=== PATIENT | female | born 1950 | race Hispanic/Latino ===

== ENCOUNTER → 2017-09-08 | Outpatient (CLI) | payer MEDICARE ==
[~2017-09-08] MED LIST: ACIPHEX PO; ASPIRIN81 MG PO; ATENOLOL50 MG PO; CALTRATE 600 W1 EACH; CENTRUM SILVER1 EAC3; CITALOPRAM HBR20 MG PO; CLONAZEPAM1 MG PO; DOXEPIN HCL50 MG PO; FISH OIL300 MG PO; FUROSEMIDE40 MG PO; GLIPIZIDE PO; NEXIUM40 MG; POTASSIUM CHLO10 ME1 PO; REGLAN PO; SEROQUEL25 MG PO; SIMVASTATIN40 MG PO; SUCRALFATE1 GM PO; SYNTHROID PO; VITAMIN B-121000 MCG PO; VITAMIN D31000 UNIT; WATER PILL; Z DOXEPIN HCL PO; Z.0.ACIPHEX20 MG PO; Z.0.CITALOPRAM HBR40 PO; Z.0.CLONAZEPAM2 MG PO; Z.0.JANUMET XR 50-1; Z.0.SIMVASTATIN80 MG PO; [UNRECOGNIZED DRUG - OTHER] PO; [UNRECOGNIZED DRUG - OTHER] PO; atenolol
--- NOTE | 2017-09-08 12:42 | Diagnostic Imaging Report ---
PROCEDURE:US RETROPERITONEAL ( KIDNEY ). COMPARISON:None. INDICATIONS:CKD TECHNIQUE: Martini scale and color Doppler ultrasound kidneys FINDINGS: Right: 11.5 x 4.7 x 2.4 cm. Cortical thickness 1.6 cm. Left: 10.4 x 5 x 4.1 cm. Cortical thickness 1.4 cm. Both kidneys demonstrate normal parenchymal echogenicity. No conspicuous cyst, stone or mass. Ureteral jets are not identified, but there is no evidence of obstruction. Survey views of the urinary bladder are normal. Prevoid bladder volume: 114 mL Post void bladder volume: Zero CONCLUSION: Normal renal ultrasound. Dictated by: Kranthi Cm M.D. on 09/08/2017 at 12:45 Electronically approved by: Kranthi Cm M.D. on 09/08/2017 at 12:45
--- NOTE | 2017-09-08 12:44 | Diagnostic Imaging Report ---
PROCEDURE:URINARY BLADDER ULTRASOUND COMPARISON:None. INDICATIONS:CKD TECHNIQUE:Martini scale color Doppler Findings: Survey views of the urinary bladder are unremarkable. Ureteral jets are not identified, but there is no secondary evidence of ureteral obstruction. Prevoid bladder volume: 114 mL Post void volume: Zero CONCLUSION: Normal urinary bladder ultrasound. Dictated by: Kranthi Cm M.D. on 09/08/2017 at 12:47 Electronically approved by: Kranthi Cm M.D. on 09/08/2017 at 12:47
== END ==
LOC: US 10:22
PROVIDERS: ATTEND Internal Medicine Nephrology
DX: N18.3 Chronic kidney disease, stage 3 (moderate) (principal); E11.9 Type 2 diabetes mellitus without complications
CPT/HCPCS: 76770; 76857

== ENCOUNTER → 2018-04-22 | Outpatient (CLI) | payer MEDICARE | LOC: CARD 15:09 | PROVIDERS: ATTEND Internal Medicine | DX: I70.90 Unspecified atherosclerosis (principal) | CPT/HCPCS: 93880 ==

== ENCOUNTER → 2018-05-01 | Outpatient (CLI) | payer MEDICARE ==
[~2018-05-01] MED LIST changes: +FENTANYL CITRATE/PF 100MCG/2 ML INJ ONE
--- NOTE | 2018-05-01 12:25 | Diagnostic Imaging Report ---
EXAMINATION: CHEST 2 VIEWS INDICATION: Chest pain. Bone loss. ^ANNUAL PHYSICAL EXAM / BONE LOSS COMPARISON: None FINDINGS: TUBES and LINES: None. LUNGS: Lungs are well inflated. Lungs are clear. There is no evidence of pneumonia or pulmonary edema. PLEURA: No pleural effusion or pneumothorax. HEART AND MEDIASTINUM: The cardiomediastinal silhouette is unremarkable. BONES AND SOFT TISSUES: No acute osseous lesion. Soft tissues are unremarkable. UPPER ABDOMEN: No free air under the diaphragm. IMPRESSION: No acute thoracic abnormality. Signed by: Dr. Edgardo Abernathy M.D. on 05/01/2018 12:22 PM
--- NOTE | 2018-05-01 17:25 | Diagnostic Imaging Report ---
Exam: Bone mineral density study. History: ANNUAL PHYSICAL EXAM / BONE LOSS Comparison: None similar prior comparison available Discussion: Evaluation of the left hip and lumbar spine was performed. The study is technically adequate. The patient's fracture risk is compared to an age-matched control. The patient denies prior surgery/fracture of the spine, hips or forearm. Left hip femoral neck bone mineral density: 0.6 g/cm2, T-score is -2.4, Z-score is -0.7. Left hip total bone mineral density: 0.8 g/cm2, T-score is -1, Z-score is 0.4. Lumbar spine total bone mineral density: 0.8 g/cm2, T-score is -1.9, Z-score is 0.1. Impression: 1. Bone mineralization by WHO Classification is low bone mass/osteopenia, the fracture risk is increased. 2. The FRAX 10-year probability of major osteoporotic fracture is 11% and hip fracture is 2.1%. These probabilities assume the patient is untreated. Signed by: Dr. Nick Watkins D.O., M.M.M. on 05/01/2018 5:22 PM
== END ==
LOC: MAMMO 10:38
PROVIDERS: ATTEND Internal Medicine
DX: Z12.31 Encounter for screening mammogram for malignant neoplasm of breast (principal); Z13.820 Encounter for screening for osteoporosis; Z00.00 Encounter for general adult medical examination without abnormal findings; M85.80 Other specified disorders of bone density and structure, unspecified site
CPT/HCPCS: 71046; 77067; 77080

== ENCOUNTER → 2019-01-22 | Day surgery (SDC) | payer MEDICARE ==
[2019-01-20 17:06] LABS: BASOPHILS % 0.3 % (0.0-1.0); EOSINOPHILS # (AUTO) 0.1 (0.0-0.4); EOSINOPHILS % 1.4 % (0.0-6.0); HEMATOCRIT 40.8 % (34.2-44.1); HEMOGLOBIN 12.8 g/dL (12.0-16.0); LYMPHOCYTES # (AUTO) 2.1 (1.0-3.2); LYMPHOCYTES % 23.3 % (18.0-39.1); MEAN CORPUSCULAR HEMOGLOBIN 28.7 pg (28-32); MEAN CORPUSCULAR HGB CONC 31.4 g/dL (31-35); MEAN CORPUSCULAR VOLUME 91.5 fL (81-99); MONOCYTES # (AUTO) 0.6 (0.2-0.8); MONOCYTES % 7.1 % (4.4-11.3); NEUTROPHILS # (AUTO) 6.1 (2.1-6.9); NEUTROPHILS % 67.6 % (38.7-80.0); PLATELET COUNT 231 x10e3/uL (140-360); RED BLOOD COUNT 4.46 x10e6/uL (3.6-5.1); RED CELL DISTRIBUTION WIDTH 15.9 % (11.7-14.4)
[~2019-01-22] MED LIST changes: +ACIPHEX20 MG PO; +CREON DR 36,001 EACH PO; -FENTANYL CITRATE/PF 100MCG/2 ML INJ ONE; +GABAPENTIN100 MG PO; +JANUMET 50-1,01 EACH PO; +LIDOCAINE HCL 2% LOCAL INJ 5 ML SDV VIAL INJ ONE; +MIDAZOLAM HCL 2 MG/2 ML VIAL ONE; +NAPROXEN250 MG PO; +NORCO 5-325 TA1 EACH PO; +OMEPRAZOLE40 MG PO; +PROAIR HFA INH8.5 GM INH; +PROPOFOL IV EMULSION 10 MG/ML 50 ML VIAL ONE; +ULTRAM50 MG PO; +ZAFIRLUKAST10 MG PO
--- OUTSIDE RECORDS SUMMARY | 2019-01-22 06:24 | XMS REPORT ---
Author [facility] Address Unknown Phone Unavailable Care Team Providers Care Clinical Trial Data Manager Name Role Phone EDITH GRIMALDO Unavailable Unavailable EMMA JOAQUIN Unavailable Unavailable Payers Payer Name Policy Type Policy Number Effective Date Expiration Date Problems This patient has no known problems. Allergies, Adverse Reactions, Alerts Allergy Name Allergy Type Status Severity Reaction(s) Onset Date Inactive Date Treating Clinician Comments codeine DA Active [place] 2016-08-01 00:00:00 Medications This patient has no known medications. Encounters Start Date/Time End Date/Time Encounter Type Admission Type Attending Clinicians Care Facility Care Department Encounter ID 2018-08-28 11:43:00 2018-08-28 11:43:00 Outpatient [facility] CAR [id number] Results Test Description Test Time Test Comments Text Results Atomic Results Result Comments BONE DXA DUAL ENERGY 2018-05-01 17:20:00 [place] [address] Patient Name: LAURA KNIGHT MR #: [id number] : 1950 Age/Sex: 67/F Req #: [id number] Adm Physician: Ordered by: EDITH GRIMALDO MD Report #: [id number] Location: [facility] Room/Bed: Procedure: [id number] DX/BONE DXA DUAL ENERGY Exam Date: Exam Time: REPORT STATUS: Signed Exam: Bone mineral density study. History: ANNUAL PHYSICAL E XAM / BONE LOSS Comparison: None similar prior comparison available Discussion: Evaluation of the left hip and lumbar spine was performed. The study is technically adequate. The patient's fracture risk is compared to an age-matched control. The patient denies prior surgery/fracture of the spine, hips or forearm. Left hip femoral neck bone mineral density: 0.6 g/cm2, T-score is -2.4, Z-score is -0.7. Left hip total bone mineral density: 0.8 g/cm2, T-score is -1, Z-score is 0.4. Lumbar spine total bone mineral density: 0.8 g/cm2, T-score is -1.9, Z-score is 0.1. Impression: 1. Bone mineralization by WHO Classification is low bone mass/osteopenia, the fracture risk is increased. 2. The FRAX 10-year probability of major osteoporotic fracture is 11% and hip fracture is 2.1%. These probabilities assume the patient is untreated. Signed by: Dr. Nick Waktins D.O., M.M.M. on 05/01/2018 5:22 PM Dictated By: NICK WATKINS DO 21 Transcribed By: CHERRY on 05/01/181721 COPY TO: EDITH GRIMALDO MD MAMMOGRAPHY DIGITAL SCR BILAT 2018-05-01 15:26:00 [place] [address] Patient Name: LAURA KNIGHT MR #: [id number] : 1950 Age/Sex: 67/F Req #: [id number] Adm Physician: Ordered by: EDITH GRIMALDO MD Report #: [id number] Location: [facility] Room/Bed: Procedure: [id number] MG/MAMMOGRAPHY DIGITAL SCR BILAT Exam Date: 05/01/18 Exam Time: 1100 REPORT STATUS: Signed #[id number] - [id number] #BILATERAL DIGITAL SCREENING MAMMOGRAM WITH CAD: 05/01/2018 CLINICAL: Routine screening. Comparison is made to exams dated: 03/07/2015 mammogram and 02/11/2013 mammogram - [facility]. Current study contains 7 films. There are scattered fibroglandular elements in both breasts. Current study was also evaluated with a Computer Aided Detection (CAD) system. There are benign calcifications in both breasts. There also are benign intramammary nodes in both breasts. No significant masses, calcifications, or other findings are seen in either breast. There has been no significant interval change. IMPRESSION: BENIGN There is no mammographic evidence of malignancy. A 1 year screening mammogram is recommended. The patient will be notified by letter of the results. Bird peace/ghulam:05/20/2018 08:25:04 Geotechnical Engineer: Kirsite KNOX(R)(M), [facility] letter sent: Compared to Prior B9 Mammogram BI-RADS: 2 Benign Dictated By: BIRD HOWE DO 4 Transcribed By: GHULAM on 05/20/18824 COPY TO: EDITH GRIMALDO MD CHEST 2 VIEWS 2018-05-01 12:21:00 [place] [address] Patient Name: LAURA KNIGHT MR #: [id number] : 1950 Age/Sex: 67/F Req #: [id number] Adm Physician: Ordered by: EDITH GRIMALDO MD Report #: [id number] Location: MAMMO Room/Bed: Procedure: [id number] DX/CHEST 2 VIEWS Exam Date: Exam Time: REPORT STATUS: Signed EXAMINATION: CHEST 2 VIEWS INDICATION: Chest pain. Bone loss. ANNUAL PHYSICAL EXAM / BONE LOSS COMPARISON: None FINDINGS: TUBES and LINES: None. LUNGS: Lungs are well inflated. Lungs are clear. There is no evidence of pneumonia or pulmonary edema. PLEURA: No pleural effusion or pneumothorax. HEART AND MEDIASTINUM: The cardiomediastinal silhouette is unremarkable. BONES AND SOFT TISSUES: No acute osseous lesion. Soft tissues are unremarkable. UPPER ABDOMEN: No free air under the diaphragm. IMPRESSION: No acute thoracic abnormality. Signed by: Dr. Yady Abernathy M.D. on 05/01/2018 12:22 PM Dictated By: YADY ABERNATHY MD, MD 122 Transcribed By: CHERRY on 05/01/18 1222 COPY TO: EDITH GRIMALDO MD RENAL RETROPERITONEAL COMP [place] [address] Patient Name: LAURA KNIGHT MR #: [id number] : 1950 Age/Sex: 66/F Req #: [id number] Adm Physician: Ordered by: EMMA JOAQUIN MD Report #: [id number] Location: Room/Bed: Procedure: US/US RENAL RETROPERITONEAL COMP Exam Date: 09/08/17 Exam Time: 1130 REPORT STATUS: Signed PROCEDURE: US RETROPERITONEAL ( KIDNEY ). COMPARISON: None. INDICATIONS: CKD TECHNIQUE: Martini scale and color Doppler ultrasound kidneys FINDINGS: Right: 11.5 x 4.7 x 2.4 cm. Cortical thickness 1.6 cm. Left: 10.4 x 5 x 4.1 cm. Cortical thickness 1.4 cm. Both kidneys demonstrate normal parenchymal echogenicity. No conspicuous cyst, stone or mass. Ureteral jets are not identified, but there is no evidence of obstruction. Survey views of the urinary bladder are normal. Prevoid bladder volume: 114 mL Post void bladder volume: Zero CONCLUSION: Normal renal ultrasound. Dictated by: Hnany Cm M.D. on 09/08/2017 at 12:45 Electronically approved by: Hanny Cm M.D. on 09/08/2017 at 12:45 Dictated By: HANNY CM MD 1245 Transcribed By: CASSIE on 09/08/17 1245 COPY TO: EMMA JOAQUIN MD PELVIC (NON OB) BARR OR F/U [place] [address] Patient Name: LAURA KNIGHT MR #: [id number] : 1950 Age/Sex: 66/F Req #: [id number] Adm Physician: Ordered by: EMMA JOAQUIN MD Report #: [id number] Location: Room/Bed: Procedure: US/US PELVIC (NON OB) BARR OR F/U Exam Date: 09/08/17 Exam Time: 1130 REPORT STATUS: Signed PROCEDURE: URINARY BLADDER ULTRASOUND COMPARISON: None. INDICATIONS: CKD TECHNIQUE: Martini scale color Doppler Findings: Survey views of the urinary bladder are unremarkable. Ureteral jets are not identified, but there is no secondary evidence of ureteral obstruction. Prevoid bladder volume: 114 mL Post void volume: Zero CONCLUSION: Normal urinary bladder ultrasound. Dictated by: Hanny Cm M.D. on 09/08/2017 at 12:47 Electronically approved by: Hanny Cm M.D. on 09/08/2017 at 12:47 Dictated By: HANNY CM MD 1247 Transcribed By: CASSIE on 09/08/17 1247 COPY TO: EMMA JOAQUIN MD
--- OUTSIDE RECORDS SUMMARY | 2019-01-22 06:25 | XMS REPORT | Summary of Care ---
Author Author Audrey Arndt M.A. Unknown Address Unknown Phone Unavailable Care Team Providers Care Soaking Pit Operator Name Role Phone TIM MERLOS M.D. Unavailable Unavailable RE JARAMILLO, EDITH BURGER Unavailable Unavailable Steve JARAMILLO, Killian Unavailable Unavailable Unavailable Unavailable Functional Status Name Dates Details Functional status health issues are not documented Status: Name Dates Details Cognitive status health issues are not documented Status: Problems Name Dates Details Morbid obesity (278.01, E66.01) Status: Active Diabetes mellitus (250.00, E11.9) Status: Active Edema of lower extremity (782.3, R60.0) Status: Active Chest pain (786.50, R07.9) Status: Active Essential (primary) hypertension (401.9, I10) Status: Active Hyperlipidemia (272.4, E78.5) Status: Active Palpitations (785.1, R00.2) Status: Active SOB (shortness of breath) (786.05, R06.02) Status: Active Abnormal findings on diagnostic imaging of heart and coronary circulation (794.39, R93.1) Status: Active Chest tightness or pressure (786.59, R07.89) Status: Active Medications Name Dates Details Simvastatin 40 MG Oral Tablet TAKE 1 TABLET DAILY. Active glipiZIDE ER 5 MG Oral Tablet Extended Release 24 Hour TAKE 2 TABLET DAILY. * Refills: 0 Active Citalopram Hydrobromide 40 MG Oral Tablet TAKE 1 TABLET DAILY. * Refills: 0 Active Calcium TABS TAKE 1 TABLET DAILY. * Refills: 0 Active B-12 CAPS qd * Refills: 0 Active clonazePAM 2 MG Oral Tablet TAKE 1 TABLET EVERY 12 HOURS NEEDED. * Refills: 0 * Start : 21-Dec-2013 Active SEROquel 200 MG Oral Tablet TAKE 2 TABLETS AT BEDTIME. * Refills: 0 * Start : 21-Dec-2013 Active Potassium Chloride ER 10 MEQ Oral Capsule Extended Release TAKE 1 CAPSULE DAILY * Refills: 0 * Start : 06-Jul-2015 Active Doxepin HCl - 50 MG Oral Capsule TAKE 1 CAPSULE 3 TIMES DAILY. * Refills: 0 * Start : 06-Jul-2015 Active Trelegy Ellipta 100-62.5-25 MCG/INH Inhalation Aerosol Powder Breath Activated * Refills: 0 Active Furosemide 80 MG Oral Tablet * Refills: 0 Active Zafirlukast 20 MG Oral Tablet * Refills: 0 Active Biotin TABS * Refills: 0 Active Centrum Silver TABS * Refills: 0 Active Atenolol 50 MG Oral Tablet * Refills: 0 Active Allergies and Adverse Reactions Name Dates Details Codeine Derivatives (Allergy) Status: Active Past Medical History Name Dates Details History of Diabetes mellitus (250.00, E11.9) Status: Resolved History of esophageal reflux (V12.79, Z87.19) Status: Resolved History of essential hypertension (V12.59, Z86.79) Status: Resolved History of Gastroparesis (536.3, K31.84) Status: Resolved History of hyperlipidemia (V12.29, Z86.39) Status: Resolved History of hypothyroidism (V12.29, Z86.39) Status: Resolved Procedures Procedure Dates Details History of Cholecystectomy Completed History of Knee Arthroscopy (Therapeutic) Completed History of Cervical Vertebral Fusion Completed History of Lumbar Vertebral Fusion Completed History of Ostectomy Calcaneus For Spur Completed History of Appendectomy Completed History of Hysterectomy Completed Immunization Name Dates Details Immunizations not documented Family History Name Dates Details Family history of Stroke Syndrome (V17.1) Status: Active Name Dates Details Family history of Cancer Status: Active Social History Name Dates Details - Status: Name Dates Details Former smoker Vital Signs Date Test Result Details No Known Vitals to report Results Date Description Value Details Results not documented Plan of Care Name Dates Details Planned Observations Planned Goals not documented Planned Encounters Appointment; TIM MERLOS M.D. On: 03-Nov-2018 8:20 Appointment; KILLIAN MCCULLOUGH M.D. On: 08-Mar-2019 10:30 Interventions Provided Plan* 1. HTN * 2. CKD stage 2 (per patient) * - seen by renal w/ High dose diuretic * 3. COPD * - on multiple inhalers * - on atenolol * 4. Chest pain * - typical * - nornal EKG no ST T changes * - > 250 lbs * - Pet scan (morbid obesity, chest pain, unable to tmt): positive for diffuse severe CAD * 5. Follow up w/ elective corangio to eval CAD, options (PCI, CABG and medical Rx) discussed, patient agrees.Stable sx. No angina. Emergency Contacts provided. Discussion/Summary* Reviewed and discussed clinical cardiac findings and medications. * EKG reviewed and discussed. Instructions Name Dates Details Instructions not documented Encounters Appointment; SURESH EGAN M.D. Encounter Diagnosis: Problem not documented On: 14-Jul-2018 13:30 Appointment; OLGA DOUGLAS Encounter Diagnosis: Problem not documented On: 21-Jul-2018 13:00 Appointment; SURESH EGAN M.D. Encounter Diagnosis: Problem not documented On: 13-Aug-2018 11:10 Appointment; SURESH EGAN M.D. Encounter Diagnosis: Problem not documented On: 02-Sep-2018 10:40 Appointment; TIM MERLOS M.D. Encounter Diagnosis: Problem not documented On: 03-Nov-2018 8:20
[2019-01-22 08:00] VITALS: BP 118/80
== END | disposition home or self-care (01) ==
LOC: OR 06:15
PROVIDERS: ATTEND Internal Medicine Gastroenterology
DX: K29.70 Gastritis, unspecified, without bleeding (principal); K31.89 Other diseases of stomach and duodenum; K28.9 Gastrojejunal ulcer, unspecified as acute or chronic, without hemorrhage or perforation; K21.9 Gastro-esophageal reflux disease without esophagitis; K85.90 Acute pancreatitis without necrosis or infection, unspecified; K44.9 Diaphragmatic hernia without obstruction or gangrene; J44.9 Chronic obstructive pulmonary disease, unspecified; G47.33 Obstructive sleep apnea (adult) (pediatric); R00.2 Palpitations; E03.9 Hypothyroidism, unspecified; E11.9 Type 2 diabetes mellitus without complications; Z71.3 Dietary counseling and surveillance; I10 Essential (primary) hypertension; E66.01 Morbid (severe) obesity due to excess calories; F41.9 Anxiety disorder, unspecified; F32.9 Major depressive disorder, single episode, unspecified; Z88.6 Allergy status to analgesic agent; Z91.048 Other nonmedicinal substance allergy status; Z01.810 Encounter for preprocedural cardiovascular examination; Z01.812 Encounter for preprocedural laboratory examination; Z68.43 Body mass index [BMI] 50.0-59.9, adult; Z79.84 Long term (current) use of oral hypoglycemic drugs
CPT/HCPCS: 36415 ×2; 43235; 82948; 85025; 93005; J2001; J2250; J2704

== ENCOUNTER 2019-08-23 12:33 | Observation (INO) | payer MEDICARE, OTHER ==
[~2019-08-23] VITALS: Ht 162.6 cm; Wt 86.6 kg
[~2019-08-23 12:33] MED LIST changes: -LIDOCAINE HCL 2% LOCAL INJ 5 ML SDV VIAL INJ ONE; -MIDAZOLAM HCL 2 MG/2 ML VIAL ONE; -PROPOFOL IV EMULSION 10 MG/ML 50 ML VIAL ONE
--- OUTSIDE RECORDS SUMMARY | 2019-08-23 12:36 | XMS REPORT ---
Author Author [facility] t Organization [facility] Address [address] [place] [address] Phone Unavailable Care Team Providers Care Summer Nanny Name Role Phone JORGE RINCON M.D. Attphys Unavailable JANETH GARCIA D.O. Attphys Unavailable TIM MERLOS M.D. Attphys Unavailable SURESH EGAN M.D. Attphys Unavailable SE, ECHO Attphys Unavailable RE, EDITH Attphys Unavailable MERSZEI EMMA Attphys Unavailable Payers Payer Name Policy Type Policy Number Effective Date Expiration Date S ource Problems Condition Name Condition Details Condition Category Status Onset Date Resolution Date Last Treatment Date Treating Clinician Comments Source History of depression History of depression Problem Resolved [facility] History of Arthritis of knee History of Arthritis of knee Problem Re solved [facility] History of asthma History of asthma Problem Resolved [facility] History of Bipolar 1 disorder History of Bipolar 1 disorder Problem Resolved [facility] History of essential hypertension History of essential hypertens ion Problem Resolved [facility] Type II diabetes mellitus Type II diabetes mellitus Problem Active [facility] History of gastroesophageal reflux (GERD) History of g astroesophageal reflux (GERD) Problem Resolved [facility] History of Gastroparesis History of Gastroparesis Problem Resolved [facility] History of hypothyroidism History of hypothyroidism Problem Resolved [facility] History of Migraines History of Migraines Problem Resolved [facility] History of Obesity hypoventilation syndrome History of Obesity hypoventilation syndrome Problem Resolved [facility] Morbid obesity Morbid obesity Problem Active [facility] Edema of lower extremity Edema of lower extremity Problem Active [facility] Chest pain Chest pain [facility] Essential (primary) hypertension Essential (primary) hypertensio n Problem Active [facility] Hyperlipidemia Hyperlipidemia Problem Active [facility] Palpitations Palpitations Problem Active [facility] SOB (shortness of breath) SOB (shortness of breath) Problem Active [facility] Abnormal findings on diagnostic imaging of heart and c oronary circulation Abnormal findings on diagnostic imaging of heart and coronary circulation Problem Active [facility] Chest tightness or pressure Chest tightness or pressure Problem Active [facility] 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 [facility] Other protein-calorie malnutrition Other protein-calorie malnutr ition Problem Active [facility] GERD (gastroesophageal reflux disease) GERD (gastroesophagea l reflux disease) Problem Active [facility] COPD (chronic obstructive pulmonary disease) COPD (chr onic obstructive pulmonary disease) Problem Active [facility] Bipolar disorder, mixed Bipolar disorder, mixed Problem Active [facility] Allergies, Adverse Reactions, Alerts Allergy Name Allergy Type Status Severity Reaction(s) Onset Date Inacti ve Date Treating Clinician Comments Source codeine DA Active [place] 2019-02-03 00:00:00 [facility] codeine DA Active IN 2016-08-01 00:00:00 [facility] Codeine Derivatives Allergy to drug (finding) Active [facility] codeine Allergy to drug (finding) Active [facility] Family History Family Member Diagnosis Comments Start Date Stop Date Source Father Family history of Stroke Syndrome [facility] Brother Family history of Cancer [facility] Social History Smoking Status Start Date Stop Date Source Ex-smoker (finding) [place] [facility] Medications Ordered Medication Name Filled Medication Name Start Date Stop Da te Current Medication? Ordering Clinician Indication Dosage Frequency Signature (SIG) Comments Components Source Potassium Chloride ER 10 MEQ Oral Capsule Extended Rel ease Potassium Chloride ER 10 MEQ Oral Capsule Extended Release 2015-07-06 00:00:00 Yes 1 QD TAKE 1 CAPSULE DAILY [facility] Doxepin HCl - 50 MG Oral Capsule Doxepin HCl - 50 MG Oral Ca psule 2015-07-06 00:00:00 Yes Q0.3333D TAKE 1 CAPSULE 3 TIMES VANDANA Rosa [facility] clonazePAM 2 MG Oral Tablet clonazePAM 2 MG Oral Tablet 2013-12-21 00:00:00 Yes TAKE 1 TABLET EVERY 12 HOURS NEEDED. [facility] SEROquel 200 MG Oral Tablet SEROquel 200 MG Oral Tablet 2013-12-21 00:00:00 Yes TAKE 2 TABLETS AT BEDTIME. [facility] Simvastatin 40 MG Oral Tablet Simvastatin 40 MG Oral Tablet Yes 1 QD TAKE 1 TABLET DAILY. [facility] glipiZIDE ER 5 MG Oral Tablet Extended Release 24 Hour glipiZIDE ER 5 MG Oral Tablet Extended Release 24 Hour Yes TAKE 2 TABLET DAILY. [facility] Citalopram Hydrobromide 40 MG Oral Tablet Citalopram H ydrobromide 40 MG Oral Tablet Yes 1 QD TAKE 1 TABLET DAILY. [facility] Calcium TABS Calcium TABS Yes 1 QD TAKE 1 TABLET DAILY. [facility] B-12 CAPS B-12 CAPS Yes qd [facility] Trelegy Ellipta 100-62.5-25 MCG/INH Inhalation Aerosol Powder Breath Activated Trelegy Ellipta 100-62.5-25 MCG/INH Inhalation Aerosol Powder Breath Activated Yes [facility] Furosemide 80 MG Oral Tablet Furosemide 80 MG Oral Tablet Yes [facility] Zafirlukast 20 MG Oral Tablet Zafirlukast 20 MG Oral Tablet Ye s [facility] Biotin TABS Biotin TABS Yes [facility] Centrum Silver TABS Centrum Silver TABS Yes [facility] Atenolol 50 MG Oral Tablet Atenolol 50 MG Oral Tablet Yes [facility] Atenolol 50 MG Oral Tablet Atenolol 50 MG Oral Tablet Yes [facility] B-12 TABS B-12 TABS Yes [facility] Biotin TABS Biotin TABS Yes [facility] Calcium TABS Calcium TABS Yes [facility] Centrum Silver TABS Centrum Silver TABS Yes [facility] Citalopram Hydrobromide 40 MG Oral Tablet Citalopram H ydrobromide 40 MG Oral Tablet Yes [facility] clonazePAM 2 MG Oral Tablet clonazePAM 2 MG Oral Tablet Yes [facility] Doxepin HCl - 50 MG Oral Capsule Doxepin HCl - 50 MG Oral Capsule Yes [facility] Furosemide 80 MG Oral Tablet Furosemide 80 MG Oral Tablet Yes [facility] glipiZIDE ER 5 MG Oral Tablet Extended Release 24 Hour glipiZIDE ER 5 MG Oral Tablet Extended Release 24 Hour Yes [facility] Potassium Chloride ER 10 MEQ Oral Tablet Extended Rele ase Potassium Chloride ER 10 MEQ Oral Tablet Extended Release Yes [facility] SEROquel 200 MG Oral Tablet SEROquel 200 MG Oral Tablet Yes [facility] Simvastatin 40 MG Oral Tablet Simvastatin 40 MG Oral Tablet Ye s [facility] Trelegy Ellipta 100-62.5-25 MCG/INH Inhalation Aerosol Powder Breath Activated Trelegy Ellipta 100-62.5-25 MCG/INH Inhalation Aerosol Powder Breath Activated Yes [facility] Zafirlukast 20 MG Oral Tablet Zafirlukast 20 MG Oral Tablet Ye s [facility] Creon [id number] UNIT Oral Capsule Delayed Release Particle s Creon [id number] UNIT Oral Capsule Delayed Release Particles Yes [facility] Pancrelipase TABS Pancrelipase TABS Yes [facility] Meloxicam TABS Meloxicam TABS Yes [facility] RABEprazole Sodium 20 MG Oral Tablet Delayed Release R ABEprazole Sodium 20 MG Oral Tablet Delayed Release Yes [facility] glipiZIDE 5 MG Oral Tablet glipiZIDE 5 MG Oral Tablet Yes [facility] methylPREDNISolone 4 MG Oral Tablet methylPREDNISolone 4 MG Oral Tabl et Yes [facility] Omeprazole 40 MG Oral Capsule Delayed Release Omeprazo le 40 MG Oral Capsule Delayed Release Yes [facility] hydroCHLOROthiazide 12.5 MG Oral Tablet hydroCHLOROthiazide 12.5 MG Oral Tablet Yes [facility] Iron TABS Iron TABS Yes [facility]ive [facility] Atenolol 50 MG Oral Tablet Atenolol 50 MG Oral Tablet Yes [facility] Simvastatin TABS Simvastatin TABS Yes [facility] Zafirlukast 20 MG Oral Tablet Zafirlukast 20 MG Oral Tablet Ye s [facility] clonazePAM 2 MG Oral Tablet clonazePAM 2 MG Oral Tablet Yes [facility] SEROquel TABS SEROquel TABS Yes [facility] Vital Signs Vital Name Observation Time Observation Value Comments Source BP Systolic 2019-03-01 13:36:00 148 mm[Hg] Location: RUE; Positi on: Sitting [facility] BP Diastolic 2019-03-01 13:36:00 79 mm[Hg] Location: RUE; Positi on: Sitting [facility] Height 2019-03-01 13:36:00 63 [in_us] [facility] Weight 2019-03-01 13:36:00 289.8 [lb_av] [facility] Body Mass Index Calculated 2019-03-01 13:36:00 51.34 kg/m2 [facility] Temperature 2019-03-01 13:36:00 98.2 [degF] Method: Oral [facility] Heart Rate 2019-03-01 13:36:00 75 /min Quality: Normal Unive [facility] BP Systolic 2019-02-15 13:53:00 108 mm[Hg] Location: LUE; Positi on: Sitting [facility] BP Diastolic 2019-02-15 13:53:00 73 mm[Hg] Location: LUE; Positi on: Sitting [facility] Height 2019-02-15 13:53:00 65 [in_us] [facility] Weight 2019-02-15 13:53:00 304 [lb_av] [facility] Body Mass Index Calculated 2019-02-15 13:53:00 50.59 kg/m2 [facility] Heart Rate 2019-02-15 13:53:00 73 /min Location: L Radial; Q uality: Normal [facility] BP Systolic 2018-08-13 11:07:00 129 mm[Hg] Location: LUE; Positi on: Sitting [facility] BP Diastolic 2018-08-13 11:07:00 82 mm[Hg] Location: LUE; Positi on: Sitting [facility] Height 2018-08-13 11:07:00 65 [in_us] [facility] Weight 2018-08-13 11:07:00 326 [lb_av] [facility] Body Mass Index Calculated 2018-08-13 11:07:00 54.25 kg/m2 [facility] Heart Rate 2018-08-13 11:07:00 78 /min [facility] BP Systolic 2018-07-14 14:29:00 112 mm[Hg] Location: RUE; Positi on: Sitting [facility] BP Diastolic 2018-07-14 14:29:00 84 mm[Hg] Location: RUE; Positi on: Sitting [facility] Height 2018-07-14 14:29:00 65 [in_us] [facility] Weight 2018-07-14 14:29:00 320 [lb_av] [facility] Body Mass Index Calculated 2018-07-14 14:29:00 53.25 kg/m2 [facility] Heart Rate 2018-07-14 14:29:00 83 /min [facility] Procedures Procedure Date / Time Performed Performing Clinician Sour e [QLH] CBC (INCLUDES DIFF/PLT) 2019-03-01 00:00:00 [facility] [[facility]] CMP W/EGFR 2019-03-01 00:00:00 [facility] [[facility]] FERRITIN 2019-03-01 00:00:00 [facility] [[facility]] FOLATE, SERUM 2019-03-01 00:00:00 [facility] [[facility]] HEMOGLOBIN A1c 2019-03-01 00:00:00 [facility] [[facility]] IRON AND TOTAL IRON BINDING CAPACITY 2019-03-01 00:00:00 [facility] [[facility]] LIPID PANEL 2019-03-01 00:00:00 [facility] [[facility]] PTH, INTACT (WITHOUT CALCIUM) 2019-03-01 00:00:00 [facility] [[facility]] TSH, 3RD GENERATION W/REFLEX TO FT4 2019-03-01 00:00:00 [facility] [[facility]] VITAMIN A (RETINOL) 2019-03-01 00:00:00 [facility]] VITAMIN B1, WHOLE BLOOD 2019-03-01 00:00:00 [facility] [[facility]] VITAMIN B12 2019-03-01 00:00:00 [facility] [[facility]] VITAMIN D, 25-HYDROXY, LC/MS/MS 2019-03-01 00:00:00 [facility] [[facility]] VITAMIN E (TOCOPHEROL) 2019-03-01 00:00:00 [facility] Coronary Angiography 2018-08-14 00:00:00 [facility] [[facility]] CBC (INCLUDES DIFF/PLT) 2018-08-13 00:00:00 [facility] [QL] CMP W/EGFR 2018-08-13 00:00:00 [facility] [W] PET Stress Perfusion for Ischemia 2018-07-20 00:00:00 [facility] Echo (In Office) 2018-07-15 00:00:00 [facility] [W] PET Stress Perfusion for Ischemia 2018-07-15 00:00:00 [facility] History of Cholecystectomy [facility] History of Knee Arthroscopy (Therapeutic) [facility] History of Cervical Vertebral Fusion [facility] History of Lumbar Vertebral Fusion [facility] History of Ostectomy Calcaneus For Spur [facility] History of Appendectomy [facility] History of Hysterectomy [facility] Plan of Care Planned Activity Planned Date Details Comments Source Diagnostic Test Pending 2018-08-14 00:00:00 Coronary Angiogr aphy [code = Coronary Angiography] [facility] Diagnostic Test Pending 2018-07-20 00:00:00 [W] PET Stress P erfusion for Ischemia [code = [W] PET Stress Perfusion for Ischemia] [facility] Diagnostic Test Pending 2018-07-15 00:00:00 [W] PET Stress P erfusion for Ischemia [code = [W] PET Stress Perfusion for Ischemia] [facility] Encounters Start Date/Time End Date/Time Encounter Type Admission Type [facility] Care Department Encounter ID Source 2019-08-16 14:40:00 2019-08-16 14:40:00 Appointment; JORGE RINCON M.D. TRANG, AMANDA, M.D. Formerly [facility] [id number] [facility] 2019-04-05 14:15:00 2019-04-05 14:15:00 Appointment; EDSON GARCIA D.O. ELLIOTT, EKATARINA, D.O. [facility] [id number] [facility] 2019-03-03 21:20:00 2019-03-03 21:20:00 Emergency E MHSE MHSE [id number] [facility]SE 2019-03-01 13:30:00 2019-03-01 13:30:00 Appointment; EDSON GARCIA D.O. ELLIOTT, EKATARINA, D.O. [facility] General Surgery [facility] [id number] [facility] 2019-02-15 13:00:00 2019-02-15 13:00:00 Appointment; JORGE RINCON M.D. TRANG, AMANDA, M.D. [facility] - [facility] [id number] [facility] 2018-11-03 08:20:00 2018-11-03 08:20:00 Appointment; TIM MERLOS M.D. GEORGE, BENNET, M.D. [facility] - [facility] [id number] [facility] 2018-09-18 10:30:00 2018-09-18 10:30:00 Appointment; SURESH EGAN M.D. NASCIMBENE, ANGELO, M.D. [facility] - [facility] [id number] [facility] 2018-09-16 14:00:00 2018-09-16 14:00:00 Appointment; SURESH EGAN M.D. NASCIMBENE, ANGELO, M.D. [facility] - [facility] [id number] [facility] 2018-09-02 10:40:00 2018-09-02 10:40:00 Appointment; SURESH EGAN M.D. NASCIMBENE, ANGELO, M.D. [facility] [id number] [facility] 2018-08-28 11:43:00 2018-08-28 11:43:00 Outpatient [facility] CAR [id number] [facility] 2018-08-13 11:10:00 2018-08-13 11:10:00 Appointment; SURESH EGAN M.D. NASCIMBENE, ANGELO, M.D. [facility] Cardiology at [facility] [id number] [facility] 2018-07-21 13:00:00 2018-07-21 13:00:00 Appointment; SE, ECHO SE, ECHO UTP UTP [id number] [facility] 2018-07-15 14:30:00 2018-07-15 14:30:00 Appointment; SURESH EGAN M.D. NASCIMBENE, ANGELO, M.D. [facility] Cardiology at [facility] 51 [id number] [facility] 2018-07-14 13:30:00 2018-07-14 13:30:00 Appointment; SURESH EGAN M.D. NASCIMBENE, ANGELO, M.D. [facility] Cardiology at [place] [phone] [id number] [facility] Results Test Description Test Time Test Comments Results Result Comments Source - XR SHOULDER 2 + V LT 2019-04-20 15:06:00 FAX: Eric Pop MD [phone] [place]: St: REG FAX: Edith Jackson MD [phone] Name: EUGENELAURA LIS [facility] [place] : 1950 Age/S: 68/F [address] [place] [address] Unit #: [id number] Loc: [place] [address] Phys: Eric Mcgee MD Acct: [id number] Dis Date: Status: REG RCR PHONE #: [phone] Exam Date: 04/20/2019 1231 FAX #: Reason: LEFT SHOULDER PAIN EXAMS: CPT CODE: [id number] XR SHOULDER 2 + [place] [address] HISTORY: Left shoulder pain. COMPARISON: April 05, 2019. Location: [facility]. 3 views of the left shoulder: Shoulder prosthesis is in good position. No loosening or fracture. Narrowed AC joint. Visualized lungs are clear. Coracoid and acromion appea r unremarkable. IMPRESSION: Shoulder prosthesis appears to be in good position without loosening or fracture. at 1506 Reported and signed by: Mao Guerrero M.D. CC: Eric Mcgee MD; Edith Grimaldo Technologist: RT Hiro(Castillo) Trnscrd Date/Time/By: 04/20/2019 (4874) : By: [email or web address] Orig Print D/T: S: 04/20/2019 (2130) PAGE 1 Signed Report - XR SHOULDER 1 V LT 2019-04-05 11:07:00 FAX: Eric Pop MD [phone] [place]: St: REG FAX: Edith Jackson MD [phone] Name: LAURA KNIGHT [facility] [place] : 1950 Age/S: 68/F [address] [place] [address] Unit #: [id number] Loc: [facility] Nayana [place] [address] Phys: Eric Mcgee MD Acct: [id number] Dis Date: Status: REG RCR PHONE #: [phone] Exam Date: 04/05/2019 1057 FAX #: Reason: LEFT SHOULDER INJURY EXAMS: CPT CODE: [id number] XR SHOULDER 1 [place] [address] HISTORY: Left shoulder pain and postop. COMPARISON: March 17, 2019. Single view of the left shoulder: Location: [facility]. Shoulder prosthesis in good position. Surgical skin hong seen superiorly. No loosening or fracture. Soft tissues are normal. Osteopenia. IMPRESSION: Shoulder prosthesis appears to be in good position on the single view without loosening or fracture. at 1107 Reported and signed by: Mao Guerrero M.D. CC: Eric Mcgee MD; Edith Grimaldo Technologist: RT Hiro(Castillo) Trnscrd Date/Time/By: 04/05/2019 (7126) : By: [email or web address] Orig Print D/T: S: 04/05/2019 (5748) PAGE 1 Signed Report GLUBED 2019-03-24 16:30:00 Test Item GLUBED (test code = GLUBED) 147 mg/dL 74-106 H Performed by certified lithoduplicator operator at [facility] [id number] 12:39:00* Test Item Value Reference Range Interpretation Comments GLUBED (test code = GLUBED) 163 mg/dL 74-106 H Performed by certified lithoduplicator operator at [facility] [id number] 01:06:00* Test Item Value Reference Range Interpretation Comments GLUBED (test code = GLUBED) 175 mg/dL 74-106 H Performed by certified lithoduplicator operator at [facility] [id number] 20:30:00* Test Item Value Reference Range Interpretation Comments GLUBED (test code = GLUBED) 111 mg/dL 74-106 H Performed by certified lithoduplicator operator at [facility] [id number] 13:11:00* Test Item Value Reference Range Interpretation Comments GLUBED (test code = GLUBED) 170 mg/dL 74-106 H Performed by certified lithoduplicator operator at [facility] [id number] 09:13:00* Test Item Value Reference Range Interpretation Comments GLUBED (test code = GLUBED) 177 mg/dL 74-106 H Performed by certified lithoduplicator operator at [facility] [id number] 20:14:00* Test Item Value Reference Range Interpretation Comments GLUBED (test code = GLUBED) 117 mg/dL 74-106 H Performed by certified lithoduplicator operator at [facility] [id number] 16:42:00* Test Item Value Reference Range Interpretation Comments GLUBED (test code = GLUBED) 107 mg/dL 74-106 H Performed by certified lithoduplicator operator at [facility] [id number] 12:43:00* Test Item Value Reference Range Interpretation Comments GLUBED (test code = GLUBED) 146 mg/dL 74-106 H Performed by certified lithoduplicator operator at [facility] [id number] 08:02:00* Test Item Value Reference Range Interpretation Comments GLUBED (test code = GLUBED) 98 mg/dL 74-106 N Performed by certified lithoduplicator operator at [facility] BASIC METABOLIC [id number] 05:22:00* Test Item Value Reference Range Interpretation Comments SODIUM (test code = NA) 142 mmol/L 136-145 N POTASSIUM (test code = K) 3.2 mmol/L 3.5-5.1 L CHLORIDE (test code = CL) 103.0 mmol/L 98-107 N CARBON DIOXIDE (test code = CO2) 34.0 mmol/L 21-32 H ANION GAP (test code = GAP) 8.2 10-20 L GLUCOSE (test code = GLU) 103 mg/dL 74-106 N BLOOD UREA NITROGEN (test code = BUN) 6 mg/dL 7-18 L GLOMERULAR FILTRATION RATE (test code = GFR) > 60 mL/min >=60 Estimated GFR by using Modified MDRD formula.Chronic kidney disease is defined as either kidney damageor GFR <60 mL/min/1.73 m2 for >3 months. CREATININE (test code = CREAT) 0.60 mg/dL 0.55-1.02 N Note change in reference range due to change in reagent. BUN/CREATININE RATIO (test code = BUN/CREA) 10.0 10-20 N CALCIUM (test code = CA) 8.1 mg/dL 8.5-10.1 L BASIC METABOLIC [id number] 05:11:00* Test Item Value Reference Range Interpretation Comments SODIUM (test code = NA) 142 mmol/L 136-145 N POTASSIUM (test code = K) 3.2 mmol/L 3.5-5.1 L CHLORIDE (test code = CL) 103.0 mmol/L 98-107 N CARBON DIOXIDE (test code = CO2) mmol/L 21-32 ANION GAP (test code = GAP) 10-20 GLUCOSE (test code = GLU) mg/dL 74-106 BLOOD UREA NITROGEN (test code = BUN) mg/dL 7-18 GLOMERULAR FILTRATION RATE (test code = GFR) mL/min >=60 CREATININE (test code = CREAT) mg/dL 0.55-1.02 BUN/CREATININE RATIO (test code = BUN/CREA) 10-20 CALCIUM (test code = CA) mg/dL 8.5-10.1 CBC W/AUTO [id number] 04:32:00* Test Item Value Reference Range Interpretation Comments WHITE BLOOD CELL (test code = WBC) 8.1 K/mm3 4.5-12.5 N RED BLOOD CELL (test code = RBC) 3.51 mill/mm3 3.7-5.2 L HEMOGLOBIN (test code = HGB) 10.4 gram/dL 11.5-15.5 L HEMATOCRIT (test code = HCT) 32.5 % 36.0-46.0 L MEAN CELL VOLUME (test code = MCV) 92.6 fL 80-98 N MEAN CELL HGB (test code = MCH) 29.6 picogram 27.0-33.0 N MEAN CELL HGB CONCETRATION (test code = MCHC) 32.0 gram/dL 33.0-36. 0 L RED CELL DISTRIBUTION WIDTH (test code = RDW) 14.6 % 11.6-16. 2 N RED CELL DISTRIBUTION WIDTH SD (test code = RDW-SD) 48.2 fL 37 .0-51.0 N PLATELET COUNT (test code = PLT) 326 K/mm3 150-450 N MEAN PLATELET VOLUME (test code = MPV) 9.3 fL 6.7-11.0 N NEUTROPHIL % (test code = NT%) 49.3 % 39.0-69.0 N IMMATURE GRANULOCYTE % (test code = IG%) 0.4 % 0.0-5.0 N LYMPHOCYTE % (test code = LY%) 37.1 % 25.0-55.0 N MONOCYTE % (test code = MO%) 9.4 % 0.0-10.0 N EOSINOPHIL % (test code = EO%) 3.3 % 0.0-5.0 N BASOPHIL % (test code = BA%) 0.5 % 0.0-1.0 N NUCLEATED RBC % (test code = NRBC%) 0.0 % 0-0 N NEUTROPHIL # (test code = NT#) 3.99 K/mm3 1.8-7.7 N IMMATURE GRANULOCYTE # (test code = IG#) 0.03 x10 3/uL 0-0.03 N LYMPHOCYTE # (test code = LY#) 3.00 K/mm3 1.0-5.0 N MONOCYTE # (test code = MO#) 0.76 K/mm3 0-0.8 N EOSINOPHIL # (test code = EO#) 0.27 K/mm3 0.0-0.5 N BASOPHIL # (test code = BA#) 0.04 K/mm3 0.0-0.2 N NUCLEATED RBC # (test code = NRBC#) 0.00 K/mm3 0.0-0.1 N MANUAL DIFF REQUIRED (test code = MDIFF) NO [id number] 20:28:00* Test Item Value Reference Range Interpretation Comments GLUBED (test code = GLUBED) 85 mg/dL 74-106 N Performed by certified lithoduplicator operator at [facility] [id number] 16:26:00* Test Item Value Reference Range Interpretation Comments GLUBED (test code = GLUBED) 96 mg/dL 74-106 N Performed by certified lithoduplicator operator at [facility] [id number] 12:47:00* Test Item Value Reference Range Interpretation Comments GLUBED (test code = GLUBED) 157 mg/dL 74-106 H Performed by certified lithoduplicator operator at [facility] - XR SHOULDER 2 + V [id number] 12:01:00 FAX: Erci Pop MD [phone] [place]: St: ADM Name: LAURA CYR [facility] : [birth year] 49 Age/S: 68/F [address] [facility] Unit #: [id number] Loc: [address] [address] Phys: Eric Mcgee MD Acct: [id number] Dis Date: Status: ADM IN PHONE #: [phone] Exam Date: 03/21/2019 1151 FAX #: [phone] Reason: post op pain EXAMS: CPT CODE: [id number] XR SHOULDER 2 + [place] [id number] HISTORY: Postop. COM PARISON: March 17, 2019. Location: TH. 3 views of the left shoulder: Shoulder prosthesis is in good position. No l oosening or fracture. Narrowed AC joint. Scapula and coracoid appear wit hin normal limits. Lungs are clear. IMPRESSION: Shoulder prosthesis is in good position without loosening or fracture or dislocation. at 1201 Reported and signed by: Mao Guerrero M.D. CC: Eric Mcgee MD Technologist: Pk DASH) Tr nscrd Date/Time/By: 03/21/2019 (8591) : By: [email or web address] Orig Print D/T: S: 03/21/2019 (7886) PAGE 1 Cathy d Report [id number] 07:56:00* Test Item Value Reference Range Interpretation Comments GLUBED (test code = GLUBED) 106 mg/dL 74-106 N Performed by certified lithoduplicator operator at [facility] [id number] 20:50:00* Test Item Value Reference Range Interpretation Comments GLUBED (test code = GLUBED) 101 mg/dL 74-106 N Performed by certified lithoduplicator operator at [facility] [id number] 16:56:00* Test Item Value Reference Range Interpretation Comments GLUBED (test code = GLUBED) 172 mg/dL 74-106 H Performed by certified lithoduplicator operator at [facility] [id number] 08:21:00* Test Item Value Reference Range Interpretation Comments GLUBED (test code = GLUBED) 100 mg/dL 74-106 N Performed by certified lithoduplicator operator at [facility] HGB [id number] 05:46:00* Test Item Value Reference Range Interpretation Comments HEMOGLOBIN (test code = HGB) 10.8 gram/dL 11.5-15.5 L HEMATOCRIT (test code = HCT) 35.0 % 36.0-46.0 L [id number] 20:04:00* Test Item Value Reference Range Interpretation Comments GLUBED (test code = GLUBED) 89 mg/dL 74-106 N Performed by certified lithoduplicator operator at [facility] [id number] 17:42:00* Test Item Value Reference Range Interpretation Comments GLUBED (test code = GLUBED) 90 mg/dL 74-106 N Performed by certified lithoduplicator operator at [facility] [id number] 17:15:00 RUN DATE: 03/19/19 [place] - Lab PAGE 1 RUN TIME: 1715 Specimen Inqui ry RUN USER: INTERFACE PATIENT: LAURA KNIGHT ACCT #: [id number] LOC: [facility] U #: [id number] AGE/SX: 68/F ROOM: [facility] RE03/07/19EDEL DR: Anika Harry : 48 BED: A DIS: STATUS: ADM IN TLOC: SPEC #: [id number] RECD: 03/17/19 STATUS: JODI YEH #: [id number] CHRISTIANO: 03/17/[address] [facility] [address]: Eric Mcgee MD ENTERED: 03/17/19 SP TYPE: BONE OTHR DR: Seth Chacon Jr, MD, Kenneth MD Lee, Remington Pek Fong DO Nassif, George M MD Tahir, Faiza MD Vasquez Donado, Andres F MD Verma, Maneesh MDORDERED: GROSS COPIES TO: Seth Chacon Jr, MD [address] [place] [address] [email or web address] Eric Mcgee MD [address] [place] [address] L Dao beckham DO [address] [place] [address] Robson Wilson MD [address] [facility] [address] [place] [id number] [place] [address] [place] [address] Eliazar Rodriguez MD [address] [facility] [address] [facility] [place] [address] [place] [address] [place] [address] CONTINUED ON NEXT PAGE RUN DATE: 03/19/19 [place] - Lab PAGE 2 RUN TIME: 1715 Specimen I nquiry RUN USER: INTERFACE SPEC #: [id number] PATIENT: KENNETH KNIGHT #[id number] (Continued) PROCEDURES: GROSS ( 03/19/19-1449) TISSUES: HUMERUS, NOS - LEFT HEAD CLINICAL HIST ORY COLLECTION DATE: 03/17/19 LEFT SHOULDER FRACTURE FINAL DIAG NOSIS Left humeral head, hemiarthroplasty: FRACTURED HUMERAL HEAD NEGATIVE FOR MALIGNANCY DMW/sm D 83457, [address] [facility] The specimen is received in formalin labeled with the patient's name, "l eft humeral head" and consists of a round, dome shaped portion of dark knott-bro wn bone measuring 4.1 x 4.1 by up to 2.0 cm. The articular surface is smooth and polished appearing. The opposite surface is brown-red and gritty. The specimen is submitted for decalcification prior to sectioning. Wool Washer tissue is submitted in a single cassette. GROSS PERFORMED AT [facility] [address] [place] [address] (P)[phone] MICROSCOPIC All of the stains, including any controls performed, stain appropriately. MICROSCOPIC PERFO RMED AT [facility] [address] [place] [address] (P)[phone] CONTINUED ON NEXT PAGE RUN DATE: 03/19/19 [place] - Lab PAGE 3 RUN TIME: 1715 Specimen Inquiry RUN USER: INTERFACE SPEC #: [id number] PATIENT: KNIGHT,LAURAGAEL HAYS #[id number] (Continued)--------- --- PERFORMING SITE Diagnosis performed at: [facility] [address] [place] [address] Signed SIGNATURE ON FILE Mamie Cunningham MD 03/19/19 1715 END OF REPORT [id number] 16:38:00* Test Item Value Reference Range Interpretation Comments GLUBED (test code = GLUBED) 157 mg/dL 74-106 H Performed by certified lithoduplicator operator at [facility] [id number] 07:49:00* Test Item Value Reference Range Interpretation Comments GLUBED (test code = GLUBED) 93 mg/dL 74-106 N Performed by certified lithoduplicator operator at [facility] BASIC METABOLIC [id number] 05:05:00* Test Item Value Reference Range Interpretation Comments SODIUM (test code = NA) 140 mmol/L 136-145 N POTASSIUM (test code = K) 3.3 mmol/L 3.5-5.1 L CHLORIDE (test code = CL) 102.0 mmol/L 98-107 N CARBON DIOXIDE (test code = CO2) 34.0 mmol/L 21-32 H ANION GAP (test code = GAP) 7.3 10-20 L GLUCOSE (test code = GLU) 100 mg/dL 74-106 N BLOOD UREA NITROGEN (test code = BUN) 12 mg/dL 7-18 N GLOMERULAR FILTRATION RATE (test code = GFR) > 60 mL/min >=60 Estimated GFR by using Modified MDRD formula.Chronic kidney disease is defined as either kidney damageor GFR <60 mL/min/1.73 m2 for >3 months. CREATININE (test code = CREAT) 0.60 mg/dL 0.55-1.02 N Note change in reference range due to change in reagent. BUN/CREATININE RATIO (test code = BUN/CREA) 21.2 10-20 H CALCIUM (test code = CA) 8.7 mg/dL 8.5-10.1 N BASIC METABOLIC [id number] 05:01:00* Test Item Value Reference Range Interpretation Comments SODIUM (test code = NA) 140 mmol/L 136-145 N POTASSIUM (test code = K) 3.3 mmol/L 3.5-5.1 L CHLORIDE (test code = CL) 102.0 mmol/L 98-107 N CARBON DIOXIDE (test code = CO2) mmol/L 21-32 ANION GAP (test code = GAP) 10-20 GLUCOSE (test code = GLU) mg/dL 74-106 BLOOD UREA NITROGEN (test code = BUN) mg/dL 7-18 GLOMERULAR FILTRATION RATE (test code = GFR) mL/min >=60 CREATININE (test code = CREAT) mg/dL 0.55-1.02 BUN/CREATININE RATIO (test code = BUN/CREA) 10-20 CALCIUM (test code = CA) mg/dL 8.5-10.1 CBC W/AUTO [id number] 04:50:00* Test Item Value Reference Range Interpretation Comments WHITE BLOOD CELL (test code = WBC) 10.3 K/mm3 4.5-12.5 N RED BLOOD CELL (test code = RBC) 3.40 mill/mm3 3.7-5.2 L HEMOGLOBIN (test code = HGB) 10.1 gram/dL 11.5-15.5 L HEMATOCRIT (test code = HCT) 32.5 % 36.0-46.0 L MEAN CELL VOLUME (test code = MCV) 95.6 fL 80-98 N MEAN CELL HGB (test code = MCH) 29.7 picogram 27.0-33.0 N MEAN CELL HGB CONCETRATION (test code = MCHC) 31.1 gram/dL 33.0-36. 0 L RED CELL DISTRIBUTION WIDTH (test code = RDW) 14.3 % 11.6-16. 2 N RED CELL DISTRIBUTION WIDTH SD (test code = RDW-SD) 49.7 fL 37 .0-51.0 N PLATELET COUNT (test code = PLT) 313 K/mm3 150-450 N MEAN PLATELET VOLUME (test code = MPV) 9.4 fL 6.7-11.0 N NEUTROPHIL % (test code = NT%) 56.3 % 39.0-69.0 N IMMATURE GRANULOCYTE % (test code = IG%) 0.5 % 0.0-5.0 N LYMPHOCYTE % (test code = LY%) 31.4 % 25.0-55.0 N MONOCYTE % (test code = MO%) 10.6 % 0.0-10.0 H EOSINOPHIL % (test code = EO%) 0.8 % 0.0-5.0 N BASOPHIL % (test code = BA%) 0.4 % 0.0-1.0 N NUCLEATED RBC % (test code = NRBC%) 0.0 % 0-0 N NEUTROPHIL # (test code = NT#) 5.78 K/mm3 1.8-7.7 N IMMATURE GRANULOCYTE # (test code = IG#) 0.05 x10 3/uL 0-0.03 H LYMPHOCYTE # (test code = LY#) 3.22 K/mm3 1.0-5.0 N MONOCYTE # (test code = MO#) 1.09 K/mm3 0-0.8 H EOSINOPHIL # (test code = EO#) 0.08 K/mm3 0.0-0.5 N BASOPHIL # (test code = BA#) 0.04 K/mm3 0.0-0.2 N NUCLEATED RBC # (test code = NRBC#) 0.00 K/mm3 0.0-0.1 N MANUAL DIFF REQUIRED (test code = MDIFF) NO [id number] 20:48:00* Test Item Value Reference Range Interpretation Comments GLUBED (test code = GLUBED) 125 mg/dL 74-106 H Performed by certified lithoduplicator operator at [facility] [id number] 16:20:00* Test Item Value Reference Range Interpretation Comments GLUBED (test code = GLUBED) 104 mg/dL 74-106 N Performed by certified lithoduplicator operator at [facility] [id number] 08:52:00* Test Item Value Reference Range Interpretation Comments GLUBED (test code = GLUBED) 128 mg/dL 74-106 H Performed by certified lithoduplicator operator at [facility] [id number] 07:01:00* Test Item Value Reference Range Interpretation Comments GLUBED (test code = GLUBED) 142 mg/dL 74-106 H Performed by certified lithoduplicator operator at [facility] BASIC METABOLIC [id number] 06:51:00* Test Item Value Reference Range Interpretation Comments SODIUM (test code = NA) 138 mmol/L 136-145 N POTASSIUM (test code = K) 3.9 mmol/L 3.5-5.1 N CHLORIDE (test code = CL) 102.0 mmol/L 98-107 N CARBON DIOXIDE (test code = CO2) 31.0 mmol/L 21-32 N ANION GAP (test code = GAP) 8.9 10-20 L GLUCOSE (test code = GLU) 149 mg/dL 74-106 H BLOOD UREA NITROGEN (test code = BUN) 16 mg/dL 7-18 N GLOMERULAR FILTRATION RATE (test code = GFR) > 60 mL/min >=60 Estimated GFR by using Modified MDRD formula.Chronic kidney disease is defined as either kidney damageor GFR <60 mL/min/1.73 m2 for >3 months. CREATININE (test code = CREAT) 0.80 mg/dL 0.55-1.02 N Note change in reference range due to change in reagent. BUN/CREATININE RATIO (test code = BUN/CREA) 19.6 10-20 N CALCIUM (test code = CA) 8.7 mg/dL 8.5-10.1 N CBC W/AUTO [id number] 06:21:00* Test Item Value Reference Range Interpretation Comments WHITE BLOOD CELL (test code = WBC) 11.1 K/mm3 4.5-12.5 N RED BLOOD CELL (test code = RBC) 3.55 mill/mm3 3.7-5.2 L HEMOGLOBIN (test code = HGB) 10.6 gram/dL 11.5-15.5 L RESULT VERIFIED BY REPEAT ANALYSIS HEMATOCRIT (test code = HCT) 33.7 % 36.0-46.0 L MEAN CELL VOLUME (test code = MCV) 94.9 fL 80-98 N MEAN CELL HGB (test code = MCH) 29.9 picogram 27.0-33.0 N MEAN CELL HGB CONCETRATION (test code = MCHC) 31.5 gram/dL 33.0-36. 0 L RED CELL DISTRIBUTION WIDTH (test code = RDW) 14.2 % 11.6-16. 2 N RED CELL DISTRIBUTION WIDTH SD (test code = RDW-SD) 48.9 fL 37 .0-51.0 N PLATELET COUNT (test code = PLT) 319 K/mm3 150-450 RESULT VERIFIED BY REPEAT ANALYSIS MEAN PLATELET VOLUME (test code = MPV) 9.3 fL 6.7-11.0 N NEUTROPHIL % (test code = NT%) 74.0 % 39.0-69.0 H IMMATURE GRANULOCYTE % (test code = IG%) 0.5 % 0.0-5.0 N LYMPHOCYTE % (test code = LY%) 16.3 % 25.0-55.0 L MONOCYTE % (test code = MO%) 9.1 % 0.0-10.0 N EOSINOPHIL % (test code = EO%) 0.0 % 0.0-5.0 N BASOPHIL % (test code = BA%) 0.1 % 0.0-1.0 N NUCLEATED RBC % (test code = NRBC%) 0.0 % 0-0 N NEUTROPHIL # (test code = NT#) 8.20 K/mm3 1.8-7.7 H IMMATURE GRANULOCYTE # (test code = IG#) 0.06 x10 3/uL 0-0.03 H LYMPHOCYTE # (test code = LY#) 1.81 K/mm3 1.0-5.0 N MONOCYTE # (test code = MO#) 1.01 K/mm3 0-0.8 H EOSINOPHIL # (test code = EO#) 0.00 K/mm3 0.0-0.5 N BASOPHIL # (test code = BA#) 0.01 K/mm3 0.0-0.2 N NUCLEATED RBC # (test code = NRBC#) 0.00 K/mm3 0.0-0.1 N - XR SHOULDER 2 + V [id number] 19:22:00 FAX: Eric Pop MD [phone] [place]: St: ADM Name: LAURA CYR [facility] : [birth year] 49 Age/S: 68/F [address] Unit #: [id number] Loc: [address] [place] [address] Phys: Eric Mcgee MD Acct: [id number] Dis Date: Status: ADM IN PHONE #: [phone] Exam Date: 03/17/2019 190 FAX #: [phone] Reason: post op EXAMS: CPT CODE: [id number] XR SHOULDER 2 + [place] [id number] REASON FOR EXAM: post op EXAM ORDER DATE: 03/17/2019 12:00 AM Ordering: Eric Mcgee MD Attending:Rolly Harry Location: COMPARISON: 03/11/2019 PROCEDURE: - XR SHOULDER 2 + V LT FINDINGS: 2 views of the left shoulder were obtained. Interval placement of a left femoral head prosthesis with gross ly anatomical alignment with the glenoid fossa. The acromioclavicular walker nt is intact. Electronically Signed by Carlos Alberto Vance on 019 at 1922 Reported and signed by: Chito Vance M.D. CC: Eric Mcgee MD Techno logist: AGNES ALVARADO RT (R); ... Trnscrd Date/Time /By: 03/17/2019 (1921) : By: RonaldVTL Orig Print D/T: S: 03/17/2019 ( 0423) PAGE 1 Signed Report [id number] 15:55:00* Test Item Value Reference Range Interpretation Comments GLUBED (test code = GLUBED) 126 mg/dL 74-106 H Performed by certified lithoduplicator operator at [facility]Notified Nurse~ COMPREHENSIVE METABOLIC [id number] 13:13:00* Test Item Value Reference Range Interpretation Comments SODIUM (test code = NA) 139 mmol/L 136-145 N POTASSIUM (test code = K) 3.8 mmol/L 3.5-5.1 N CHLORIDE (test code = CL) 99.0 mmol/L 98-107 N CARBON DIOXIDE (test code = CO2) 31.0 mmol/L 21-32 N ANION GAP (test code = GAP) 12.8 10-20 N GLUCOSE (test code = GLU) 148 mg/dL 74-106 H BLOOD UREA NITROGEN (test code = BUN) 15 mg/dL 7-18 N GLOMERULAR FILTRATION RATE (test code = GFR) > 60 mL/min >=60 Estimated GFR by using Modified MDRD formula.Chronic kidney disease is defined as either kidney damageor GFR <60 mL/min/1.73 m2 for >3 months. CREATININE (test code = CREAT) 0.80 mg/dL 0.55-1.02 N Note change in reference range due to change in reagent. BUN/CREATININE RATIO (test code = BUN/CREA) 18.4 10-20 N TOTAL PROTEIN (test code = PROT) 7.0 gram/dL 6.4-8.2 N ALBUMIN (test code = ALB) 2.9 g/dL 3.4-5.0 L GLOBULIN (test code = GLOB) 4.1 gram/dL 2.7-4.2 N ALBUMIN/GLOBULIN RATIO (test code = A/G) 0.7 0.75-1.50 L CALCIUM (test code = CA) 9.4 mg/dL 8.5-10.1 N BILIRUBIN TOTAL (test code = BILT) 0.70 mg/dL 0.0-1.0 N SGOT/AST (test code = AST) 25 IUnit/L 15-37 N SGPT/ALT (test code = ALT) 32 IUnit/L 12-78 N ALKALINE PHOSPHATASE TOTAL (test code = ALKP) 141 IUnit/L 45-117 H Note change in reference range due to change in reagent. COMPREHENSIVE METABOLIC [id number] 13:05:00* Test Item Value Reference Range Interpretation Comments SODIUM (test code = NA) 139 mmol/L 136-145 N POTASSIUM (test code = K) 3.8 mmol/L 3.5-5.1 N CHLORIDE (test code = CL) 99.0 mmol/L 98-107 N CARBON DIOXIDE (test code = CO2) mmol/L 21-32 ANION GAP (test code = GAP) 10-20 GLUCOSE (test code = GLU) mg/dL 74-106 BLOOD UREA NITROGEN (test code = BUN) mg/dL 7-18 GLOMERULAR FILTRATION RATE (test code = GFR) mL/min >=60 CREATININE (test code = CREAT) mg/dL 0.55-1.02 BUN/CREATININE RATIO (test code = BUN/CREA) 10-20 TOTAL PROTEIN (test code = PROT) gram/dL 6.4-8.2 ALBUMIN (test code = ALB) g/dL 3.4-5.0 GLOBULIN (test code = GLOB) gram/dL 2.7-4.2 ALBUMIN/GLOBULIN RATIO (test code = A/G) 0.75-1.50 CALCIUM (test code = CA) mg/dL 8.5-10.1 BILIRUBIN TOTAL (test code = BILT) mg/dL 0.0-1.0 SGOT/AST (test code = AST) IUnit/L 15-37 SGPT/ALT (test code = ALT) IUnit/L 12-78 ALKALINE PHOSPHATASE TOTAL (test code = ALKP) IUnit/L 45-117 CBC W/AUTO [id number] 12:47:00* Test Item Value Reference Range Interpretation Comments WHITE BLOOD CELL (test code = WBC) 9.9 K/mm3 4.5-12.5 N RED BLOOD CELL (test code = RBC) 4.58 mill/mm3 3.7-5.2 N HEMOGLOBIN (test code = HGB) 13.5 gram/dL 11.5-15.5 N HEMATOCRIT (test code = HCT) 42.3 % 36.0-46.0 N MEAN CELL VOLUME (test code = MCV) 92.4 fL 80-98 N MEAN CELL HGB (test code = MCH) 29.5 picogram 27.0-33.0 N MEAN CELL HGB CONCETRATION (test code = MCHC) 31.9 gram/dL 33.0-36. 0 L RED CELL DISTRIBUTION WIDTH (test code = RDW) 14.1 % 11.6-16. 2 N RED CELL DISTRIBUTION WIDTH SD (test code = RDW-SD) 47.6 fL 37 .0-51.0 N PLATELET COUNT (test code = PLT) 400 K/mm3 150-450 N MEAN PLATELET VOLUME (test code = MPV) 9.6 fL 6.7-11.0 N NEUTROPHIL % (test code = NT%) 65.6 % 39.0-69.0 N IMMATURE GRANULOCYTE % (test code = IG%) 0.7 % 0.0-5.0 N LYMPHOCYTE % (test code = LY%) 24.6 % 25.0-55.0 L MONOCYTE % (test code = MO%) 7.3 % 0.0-10.0 N EOSINOPHIL % (test code = EO%) 1.4 % 0.0-5.0 N BASOPHIL % (test code = BA%) 0.4 % 0.0-1.0 N NUCLEATED RBC % (test code = NRBC%) 0.0 % 0-0 N NEUTROPHIL # (test code = NT#) 6.50 K/mm3 1.8-7.7 N IMMATURE GRANULOCYTE # (test code = IG#) 0.07 x10 3/uL 0-0.03 H LYMPHOCYTE # (test code = LY#) 2.44 K/mm3 1.0-5.0 N MONOCYTE # (test code = MO#) 0.72 K/mm3 0-0.8 N EOSINOPHIL # (test code = EO#) 0.14 K/mm3 0.0-0.5 N BASOPHIL # (test code = BA#) 0.04 K/mm3 0.0-0.2 N NUCLEATED RBC # (test code = NRBC#) 0.00 K/mm3 0.0-0.1 N MANUAL DIFF REQUIRED (test code = MDIFF) NO [id number] 12:27:00* Test Item Value Reference Range Interpretation Comments GLUBED (test code = GLUBED) 149 mg/dL 74-106 H Performed by certified lithoduplicator operator at [facility]Notified Nurse~ [id number] 08:53:00* Test Item Value Reference Range Interpretation Comments GLUBED (test code = GLUBED) 138 mg/dL 74-106 H Performed by certified lithoduplicator operator at [facility]Notified Nurse~ [id number] 20:35:00* Test Item Value Reference Range Interpretation Comments GLUBED (test code = GLUBED) 153 mg/dL 74-106 H Performed by certified lithoduplicator operator at [facility] [id number] 18:25:00* Test Item Value Reference Range Interpretation Comments MAGNESIUM (test code = MAG) 1.7 mg/dL 1.8-2.4 L [id number] 08:13:00* Test Item Value Reference Range Interpretation Comments GLUBED (test code = GLUBED) 150 mg/dL 74-106 H Performed by certified lithoduplicator operator at [facility] HGB [id number] 05:52:00* Test Item Value Reference Range Interpretation Comments HEMOGLOBIN (test code = HGB) 13.4 gram/dL 11.5-15.5 N HEMATOCRIT (test code = HCT) 41.4 % 36.0-46.0 N [id number] 05:28:00* Test Item Value Reference Range Interpretation Comments GLUBED (test code = GLUBED) 147 mg/dL 74-106 H Performed by certified lithoduplicator operator at [facility] [id number] 20:50:00* Test Item Value Reference Range Interpretation Comments GLUBED (test code = GLUBED) 205 mg/dL 74-106 H Performed by certified lithoduplicator operator at [facility] [id number] 16:37:00* Test Item Value Reference Range Interpretation Comments GLUBED (test code = GLUBED) 110 mg/dL 74-106 H Performed by certified lithoduplicator operator at [facility] [id number] 12:20:00* Test Item Value Reference Range Interpretation Comments GLUBED (test code = GLUBED) 131 mg/dL 74-106 H Performed by certified lithoduplicator operator at [facility] [id number] 08:51:00* Test Item Value Reference Range Interpretation Comments GLUBED (test code = GLUBED) 132 mg/dL 74-106 H Performed by certified lithoduplicator operator at [facility] CBC W/AUTO [id number] 07:02:00* Test Item Value Reference Range Interpretation Comments WHITE BLOOD CELL (test code = WBC) 10.0 K/mm3 4.5-12.5 N RED BLOOD CELL (test code = RBC) 4.39 mill/mm3 3.7-5.2 N HEMOGLOBIN (test code = HGB) 12.8 gram/dL 11.5-15.5 N HEMATOCRIT (test code = HCT) 41.2 % 36.0-46.0 N MEAN CELL VOLUME (test code = MCV) 93.8 fL 80-98 N MEAN CELL HGB (test code = MCH) 29.2 picogram 27.0-33.0 N MEAN CELL HGB CONCETRATION (test code = MCHC) 31.1 gram/dL 33.0-36. 0 L RED CELL DISTRIBUTION WIDTH (test code = RDW) 14.0 % 11.6-16. 2 N RED CELL DISTRIBUTION WIDTH SD (test code = RDW-SD) 48.2 fL 37 .0-51.0 N PLATELET COUNT (test code = PLT) 316 K/mm3 150-450 N MEAN PLATELET VOLUME (test code = MPV) 9.3 fL 6.7-11.0 N NEUTROPHIL % (test code = NT%) 61.2 % 39.0-69.0 N IMMATURE GRANULOCYTE % (test code = IG%) 0.6 % 0.0-5.0 N LYMPHOCYTE % (test code = LY%) 28.4 % 25.0-55.0 N MONOCYTE % (test code = MO%) 7.7 % 0.0-10.0 N EOSINOPHIL % (test code = EO%) 1.6 % 0.0-5.0 N BASOPHIL % (test code = BA%) 0.5 % 0.0-1.0 N NUCLEATED RBC % (test code = NRBC%) 0.0 % 0-0 N NEUTROPHIL # (test code = NT#) 6.09 K/mm3 1.8-7.7 N IMMATURE GRANULOCYTE # (test code = IG#) 0.06 x10 3/uL 0-0.03 H LYMPHOCYTE # (test code = LY#) 2.83 K/mm3 1.0-5.0 N MONOCYTE # (test code = MO#) 0.77 K/mm3 0-0.8 N EOSINOPHIL # (test code = EO#) 0.16 K/mm3 0.0-0.5 N BASOPHIL # (test code = BA#) 0.05 K/mm3 0.0-0.2 N NUCLEATED RBC # (test code = NRBC#) 0.00 K/mm3 0.0-0.1 N BASIC METABOLIC [id number] 06:58:00* Test Item Value Reference Range Interpretation Comments SODIUM (test code = NA) 140 mmol/L 136-145 N POTASSIUM (test code = K) 3.3 mmol/L 3.5-5.1 L CHLORIDE (test code = CL) 102.0 mmol/L 98-107 N CARBON DIOXIDE (test code = CO2) 33.0 mmol/L 21-32 H ANION GAP (test code = GAP) 8.3 10-20 L GLUCOSE (test code = GLU) 120 mg/dL 74-106 H BLOOD UREA NITROGEN (test code = BUN) 21 mg/dL 7-18 H GLOMERULAR FILTRATION RATE (test code = GFR) > 60 mL/min >=60 Estimated GFR by using Modified MDRD formula.Chronic kidney disease is defined as either kidney damageor GFR <60 mL/min/1.73 m2 for >3 months. CREATININE (test code = CREAT) 0.60 mg/dL 0.55-1.02 N Note change in reference range due to change in reagent. BUN/CREATININE RATIO (test code = BUN/CREA) 32.6 10-20 H CALCIUM (test code = CA) 9.3 mg/dL 8.5-10.1 N BASIC METABOLIC [id number] 06:53:00* Test Item Value Reference Range Interpretation Comments SODIUM (test code = NA) 140 mmol/L 136-145 N POTASSIUM (test code = K) 3.3 mmol/L 3.5-5.1 L CHLORIDE (test code = CL) 102.0 mmol/L 98-107 N CARBON DIOXIDE (test code = CO2) mmol/L 21-32 ANION GAP (test code = GAP) 10-20 GLUCOSE (test code = GLU) mg/dL 74-106 BLOOD UREA NITROGEN (test code = BUN) mg/dL 7-18 GLOMERULAR FILTRATION RATE (test code = GFR) mL/min >=60 CREATININE (test code = CREAT) mg/dL 0.55-1.02 BUN/CREATININE RATIO (test code = BUN/CREA) 10-20 CALCIUM (test code = CA) mg/dL 8.5-10.1 [id number] 21:15:00* Test Item Value Reference Range Interpretation Comments GLUBED (test code = GLUBED) 131 mg/dL 74-106 H Performed by certified lithoduplicator operator at [facility] [id number] 16:37:00* Test Item Value Reference Range Interpretation Comments GLUBED (test code = GLUBED) 130 mg/dL 74-106 H Performed by certified lithoduplicator operator at [facility] [id number] 12:05:00* Test Item Value Reference Range Interpretation Comments GLUBED (test code = GLUBED) 142 mg/dL 74-106 H Performed by certified lithoduplicator operator at [facility] [id number] 08:40:00* Test Item Value Reference Range Interpretation Comments GLUBED (test code = GLUBED) 119 mg/dL 74-106 H Performed by certified lithoduplicator operator at [facility] BASIC METABOLIC [id number] 06:24:00* Test Item Value Reference Range Interpretation Comments SODIUM (test code = NA) 139 mmol/L 136-145 N POTASSIUM (test code = K) 3.7 mmol/L 3.5-5.1 N CHLORIDE (test code = CL) 101.0 mmol/L 98-107 N CARBON DIOXIDE (test code = CO2) 31.0 mmol/L 21-32 N ANION GAP (test code = GAP) 10.7 10-20 N GLUCOSE (test code = GLU) 126 mg/dL 74-106 H BLOOD UREA NITROGEN (test code = BUN) 19 mg/dL 7-18 H GLOMERULAR FILTRATION RATE (test code = GFR) > 60 mL/min >=60 Estimated GFR by using Modified MDRD formula.Chronic kidney disease is defined as either kidney damageor GFR <60 mL/min/1.73 m2 for >3 months. CREATININE (test code = CREAT) 0.60 mg/dL 0.55-1.02 N Note change in reference range due to change in reagent. BUN/CREATININE RATIO (test code = BUN/CREA) 29.5 10-20 H CALCIUM (test code = CA) 9.1 mg/dL 8.5-10.1 N CBC W/AUTO [id number] 06:12:00* Test Item Value Reference Range Interpretation Comments WHITE BLOOD CELL (test code = WBC) 13.1 K/mm3 4.5-12.5 H RED BLOOD CELL (test code = RBC) 4.45 mill/mm3 3.7-5.2 N HEMOGLOBIN (test code = HGB) 13.2 gram/dL 11.5-15.5 N HEMATOCRIT (test code = HCT) 40.3 % 36.0-46.0 N MEAN CELL VOLUME (test code = MCV) 90.6 fL 80-98 N MEAN CELL HGB (test code = MCH) 29.7 picogram 27.0-33.0 N MEAN CELL HGB CONCETRATION (test code = MCHC) 32.8 gram/dL 33.0-36. 0 L RED CELL DISTRIBUTION WIDTH (test code = RDW) 14.0 % 11.6-16. 2 N RED CELL DISTRIBUTION WIDTH SD (test code = RDW-SD) 45.9 fL 37 .0-51.0 N PLATELET COUNT (test code = PLT) 320 K/mm3 150-450 N MEAN PLATELET VOLUME (test code = MPV) 9.9 fL 6.7-11.0 N NEUTROPHIL % (test code = NT%) 70.5 % 39.0-69.0 H IMMATURE GRANULOCYTE % (test code = IG%) 0.6 % 0.0-5.0 N LYMPHOCYTE % (test code = LY%) 20.3 % 25.0-55.0 L MONOCYTE % (test code = MO%) 8.0 % 0.0-10.0 N EOSINOPHIL % (test code = EO%) 0.3 % 0.0-5.0 N BASOPHIL % (test code = BA%) 0.3 % 0.0-1.0 N NUCLEATED RBC % (test code = NRBC%) 0.0 % 0-0 N NEUTROPHIL # (test code = NT#) 9.24 K/mm3 1.8-7.7 H IMMATURE GRANULOCYTE # (test code = IG#) 0.08 x10 3/uL 0-0.03 H LYMPHOCYTE # (test code = LY#) 2.66 K/mm3 1.0-5.0 N MONOCYTE # (test code = MO#) 1.05 K/mm3 0-0.8 H EOSINOPHIL # (test code = EO#) 0.04 K/mm3 0.0-0.5 N BASOPHIL # (test code = BA#) 0.04 K/mm3 0.0-0.2 N NUCLEATED RBC # (test code = NRBC#) 0.00 K/mm3 0.0-0.1 N BASIC METABOLIC [id number] 06:12:00* Test Item Value Reference Range Interpretation Comments SODIUM (test code = NA) 139 mmol/L 136-145 N POTASSIUM (test code = K) 3.7 mmol/L 3.5-5.1 N CHLORIDE (test code = CL) 101.0 mmol/L 98-107 N CARBON DIOXIDE (test code = CO2) mmol/L 21-32 ANION GAP (test code = GAP) 10-20 GLUCOSE (test code = GLU) mg/dL 74-106 BLOOD UREA NITROGEN (test code = BUN) mg/dL 7-18 GLOMERULAR FILTRATION RATE (test code = GFR) mL/min >=60 CREATININE (test code = CREAT) mg/dL 0.55-1.02 BUN/CREATININE RATIO (test code = BUN/CREA) 10-20 CALCIUM (test code = CA) mg/dL 8.5-10.1 CBC W/AUTO [id number] 06:07:00* Test Item Value Reference Range Interpretation Comments WHITE BLOOD CELL (test code = WBC) K/mm3 4.5-12.5 RED BLOOD CELL (test code = RBC) mill/mm3 3.7-5.2 HEMOGLOBIN (test code = HGB) 13.2 gram/dL 11.5-15.5 N HEMATOCRIT (test code = HCT) 40.3 % 36.0-46.0 N MEAN CELL VOLUME (test code = MCV) fL 80-98 MEAN CELL HGB (test code = MCH) picogram 27.0-33.0 MEAN CELL HGB CONCETRATION (test code = MCHC) gram/dL 33.0-36. 0 RED CELL DISTRIBUTION WIDTH (test code = RDW) % 11.6-16. 2 RED CELL DISTRIBUTION WIDTH SD (test code = RDW-SD) fL 37 .0-51.0 PLATELET COUNT (test code = PLT) K/mm3 150-450 MEAN PLATELET VOLUME (test code = MPV) fL 6.7-11.0 NEUTROPHIL % (test code = NT%) % 39.0-69.0 IMMATURE GRANULOCYTE % (test code = IG%) % 0.0-5.0 LYMPHOCYTE % (test code = LY%) % 25.0-55.0 MONOCYTE % (test code = MO%) % 0.0-10.0 EOSINOPHIL % (test code = EO%) % 0.0-5.0 BASOPHIL % (test code = BA%) % 0.0-1.0 NEUTROPHIL # (test code = NT#) K/mm3 1.8-7.7 LYMPHOCYTE # (test code = LY#) K/mm3 1.0-5.0 MONOCYTE # (test code = MO#) K/mm3 0-0.8 EOSINOPHIL # (test code = EO#) K/mm3 0.0-0.5 BASOPHIL # (test code = BA#) K/mm3 0.0-0.2 [id number] 21:06:00* Test Item Value Reference Range Interpretation Comments GLUBED (test code = GLUBED) 122 mg/dL 74-106 H Performed by certified lithoduplicator operator at [facility] [id number] 16:38:00* Test Item Value Reference Range Interpretation Comments GLUBED (test code = GLUBED) 172 mg/dL 74-106 H Performed by certified lithoduplicator operator at [facility] [id number] 11:52:00* Test Item Value Reference Range Interpretation Comments GLUBED (test code = GLUBED) 183 mg/dL 74-106 H Performed by certified lithoduplicator operator at [facility] [id number] 21:45:00* Test Item Value Reference Range Interpretation Comments GLUBED (test code = GLUBED) 128 mg/dL 74-106 H Performed by certified lithoduplicator operator at [facility] [id number] 17:28:00* Test Item Value Reference Range Interpretation Comments GLUBED (test code = GLUBED) 129 mg/dL 74-106 H Performed by certified lithoduplicator operator at [facility]Notified Nurse~ - XR SHOULDER 2 + V [id number] 14:25:00 FAX: Seth Licona [phone] [place]: [address] St: ADM Name: LAURA CYR [facility] : [birth year] Age/S: 68/F [address] Unit #: [id number] Loc: [place] [place] [address] Phys: Seth Chacon Jr, MD Acct: [id number] Dis Date: Status: ADM IN PHONE #: [phone] Exam Date: 03/11/2019 1403 FAX #: [phone] Reason: S/P fall eval for dislocation for OR EXAMS: CPT CODE: [id number] XR SHOULDER 2 + V LT [address] HISTORY: S/P fall eval for disloc ation for OR TECHNIQUE: Internal/external rotation AP and scapular Y-views of the left shoulder. COMPARISON: Left shoulder rad iographs March 09, 2019 FINDINGS: There is a fra cture of the left humeral head and at the shoulder is anteriorly dislocate d. This was also seen on the prior radiographs. The acromioclavicu lar joint is intact. No fracture of the clavicle. No definite fracture of the glenoid. The visualized thorax is within normal limits. IMPRESSION: Anterior dislocation of the left shoulder with fracture of the greater tuberosity of the humerus. Location: [facility] at 1425 Reported and signed by: Parvez Tran MD CC: Seth Jack Jr, MD Technologist: Lili henley RT(R); ELADIO PRATHER RT(R) Trnscrd Date/Time/By: 03/11/2019 (14 ) : By: [email or web address] Orig Print D/T: S: 03/11/2019 (3902) PAGE 1 Signed Report [id number] 12:13:00* Test Item Value Reference Range Interpretation Comments GLUBED (test code = GLUBED) 124 mg/dL 74-106 H Performed by certified lithoduplicator operator at [facility]Notified Nurse~ - CT C-SPINE W/O [id number] 08:24:00 Name: LAURA KNIGHT [facility] : 1950 Age/S: 68 / F [address] [facility] Unit #: [id number] Loc: [place] [address] Phys: Kamryn,Thandanathalia Carol Ann Acct: [id number] Dis Date: Status: ADM IN PHONE #: [phone] Exam Date: 03/11/2019 08 FAX #: [phone] Reason: fall EXAMS: CPT CODE: [id number] CT C-SPINE W/O CONTRAST 31659 HISTORY: fall TECHNIQUE: 2.[address] of the cervical spine. Sagittal and coronal reformatted images were generated. Automated exposure control for dose reduction. COMPARISON: CT cervical spine February 03, 2019 FINDINGS: No acute fracture of the cervical spine. No subluxation. There has been prior fusion of. Hardware is unchanged from the prior exam and the spine is appropriately aligned. Craniocervical and cervicothoracic articulations are appropriate. There is height loss of the C5 and C6 vertebral bodies as well as the intervertebral disc spaces. Vertebral body osteophytes are seen throughout the cervical spine. No prevertebral or paraspinal soft tissue abnormality. Visualized posterior fossa contents are grossly unremarkable. Lung apices are clear. C2-C3: No disc bulge or protrusion. No central canal or foraminal stenosis. C3-C4: No disc bulge or protrusion. No central canal or foraminal stenosis. C4-C5: Mild bilateral foraminal narrowing. C5-C6: Moderate bilateral foraminal narrowing. C6-C7: No disc bulge or protrusion. No central canal or foraminal stenosis. C7-T1: No disc bulge or protrusion. No central canal or foraminal stenosis. IMPRESSION: Prior C3-C4 fusion by anterior approach with appropriate alignment of the spine and no evidence of hardware loosening. Mild degenerative changes of the spine are seen however there is no acute fracture or malalignmen t. PAGE 1 Signed Report (CONTINUED ) Name: LAURA KNIGHT [facility] D OB: 1950 Age/S: 68 / F [address] [facility] Unit #: [id number] Loc: [place] [address] Phys: Daniel Cruzvaradebi Carol Ann Acct: [id number] Dis Date: Status: ADM IN PHONE #: [phone] Exam Date: 03/11/2019 08 FAX #: Reason: fall EXAMS: CPT CODE: [id number] CT C-SPINE W/O CONTRAST 21753 <Continued> Location: [facility] at 0824 Reported and signed by: Parvez Tran MD CC: Technologist:Ham Canales RT(R),(MR),(CT); CTDI: DLP: Trnscb Date/Time: 03/11/2019 (823) [email or web address] Orig Print D/T: S: 03/11/2019 (826) PAGE 2 Signed Report [id number] 08:04:00* Test Item Value Reference Range Interpretation Comments GLUBED (test code = GLUBED) 148 mg/dL 74-106 H Performed by certified lithoduplicator operator at [facility]Notified Nurse~ [id number] 21:04:00* Test Item Value Reference Range Interpretation Comments GLUBED (test code = GLUBED) 148 mg/dL 74-106 H Performed by certified lithoduplicator operator at [facility] [id number] 17:05:00* Test Item Value Reference Range Interpretation Comments GLUBED (test code = GLUBED) 168 mg/dL 74-106 H Performed by certified lithoduplicator operator at [facility] [id number] 11:41:00* Test Item Value Reference Range Interpretation Comments GLUBED (test code = GLUBED) 123 mg/dL 74-106 H Performed by certified lithoduplicator operator at [facility] [id number] 11:38:00* Test Item Value Reference Range Interpretation Comments GLUBED (test code = GLUBED) 125 mg/dL 74-106 H Performed by certified lithoduplicator operator at [facility] [id number] 20:39:00* Test Item Value Reference Range Interpretation Comments GLUBED (test code = GLUBED) 122 mg/dL 74-106 H Performed by certified lithoduplicator operator at [facility] - XR KNEE 1 OR 2 V [id number] 19:49:00 FAX: Dao You [place]: [address] St: ADM Name: LAURA CYR [facility] : [birth year] Age/S: 68/F [address] [facility] Unit #: [id number] Loc: [address] [place] [address] Phys: Dao Campos [facility] Acct: [id number] Dis Date: Status: ADM IN PHONE #: [phone] Exam Date: 03/09/20191918 FAX #: [phone] Reason: s/p fall bilat knee pain EXAMS: CPT CODE: [id number] XR KNEE 1 OR 2 V 89020 HISTORY: Left shoulder fracture. COMPARISON: X-ray from February 03, 2019. Location: [facility]. 2 views of the left shoulder: Acute traumatic fracture dislocation of the humeral head. Humeral head is displaced inferiorly and anteriorly.. Fracture of the greater tuberosity noted as well. Narrowed AC joint. Mild osteopenia. Soft tissue swelling. I MPRESSION: Anterior inferior dislocation of the humeral head o ut of the glenoid fossa with fracture of the greater tuberosity. 3 views of the left knee: Severe tricompa rtment joint space narrowing. Marginal osteophytes as well consistent w ith advanced osteoarthritis. Lateral view is limited due to suboptimal positioning. No gross joint fluid is visible. Osteopenia. So ft tissues are within normal limits. IMPRESSION: No acute fracture or dislocation. Severe tricompartment joint space narrowing with marginal osteophytes consistent with advanced osteoarth ritis. at 1 028 Reported and signed by: Mao Guerrero M.D. CC : Dao Camposg Technologist: FRANCIA DHILLON; [place], RT(R Trnmord Date/Time/By: 03/09/2019 (1949) : By: [email or web address] Orig Print D/T: S: 03/09/2019 (1952) PAGE 1 Signed Report - XR SHOULDER 2 + V [id number] 19:49:00 FAX: Dao You [place]: [address]: ADM Name: LAURA CYR [facility] : [birth year] Age/S: 68/F [address] [facility] Unit #: [id number] Loc: [address] [place] [address] Phys: Dao Campos [place] [facility] Acct: [id number] Dis Date: Status: ADM IN PHONE #: [phone] Exam Date: 03/09/20191918 FAX #: [phone] Reason: lt shoulder fxr EXAMS: CPT CODE: [id number] XR SHOULDER 2 + [place] LT [address] HISTORY: Left shoulder fracture. COMPARISON: X-ray from February 03, 2019. Location: . 2 views of the left shoulder: Acute traumatic fracture dislocation of the humeral head. Humeral head is displaced inferiorly and anteriorly.. Fracture of the greater tuberosity noted as well. Narrowed AC joint. Mild osteopenia. Soft tissue swelling. I MPRESSION: Anterior inferior dislocation of the humeral head o ut of the glenoid fossa with fracture of the greater tuberosity. 3 views of the left knee: Severe tricompa rtment joint space narrowing. Marginal osteophytes as well consistent w ith advanced osteoarthritis. Lateral view is limited due to suboptimal positioning. No gross joint fluid is visible. Osteopenia. So ft tissues are within normal limits. IMPRESSION: No acute fracture or dislocation. Severe tricompartment joint space narrowing with marginal osteophytes consistent with advanced osteoarth ritis. at 1 949 Reported and signed by: Mao Guerrero M.D. CC : Dao Campos DO Technologist: FRANCIA DHILLON; MICK HermosilloR Trnscrd Date/Time/By: 03/09/2019 (1949) : By: [email or web address] Orig Print D/T: S: 03/09/2019 (1952) PAGE 1 Signed Report [id number] 16:41:00* Test Item Value Reference Range Interpretation Comments GLUBED (test code = GLUBED) 128 mg/dL 74-106 H Performed by certified lithoduplicator operator at [facility]Notified Nurse~ [id number] 11:34:00* Test Item Value Reference Range Interpretation Comments GLUBED (test code = GLUBED) 127 mg/dL 74-106 H Performed by certified lithoduplicator operator at [facility]Notified Nurse~ [id number] 09:05:00* Test Item Value Reference Range Interpretation Comments GLUBED (test code = GLUBED) 121 mg/dL 74-106 H Performed by certified lithoduplicator operator at [facility]Notified Nurse~ BASIC METABOLIC [id number] 05:04:00* Test Item Value Reference Range Interpretation Comments SODIUM (test code = NA) 139 mmol/L 136-145 N POTASSIUM (test code = K) 4.0 mmol/L 3.5-5.1 N CHLORIDE (test code = CL) 105.0 mmol/L 98-107 N CARBON DIOXIDE (test code = CO2) 30.0 mmol/L 21-32 N ANION GAP (test code = GAP) 8.0 10-20 L GLUCOSE (test code = GLU) 126 mg/dL 74-106 H BLOOD UREA NITROGEN (test code = BUN) 14 mg/dL 7-18 N GLOMERULAR FILTRATION RATE (test code = GFR) > 60 mL/min >=60 Estimated GFR by using Modified MDRD formula.Chronic kidney disease is defined as either kidney damageor GFR <60 mL/min/1.73 m2 for >3 months. CREATININE (test code = CREAT) 0.60 mg/dL 0.55-1.02 N Note change in reference range due to change in reagent. BUN/CREATININE RATIO (test code = BUN/CREA) 23.1 10-20 H CALCIUM (test code = CA) 8.9 mg/dL 8.5-10.1 N BASIC METABOLIC [id number] 05:02:00* Test Item Value Reference Range Interpretation Comments SODIUM (test code = NA) 139 mmol/L 136-145 N POTASSIUM (test code = K) 4.0 mmol/L 3.5-5.1 N CHLORIDE (test code = CL) 105.0 mmol/L 98-107 N CARBON DIOXIDE (test code = CO2) mmol/L 21-32 ANION GAP (test code = GAP) 10-20 GLUCOSE (test code = GLU) mg/dL 74-106 BLOOD UREA NITROGEN (test code = BUN) mg/dL 7-18 GLOMERULAR FILTRATION RATE (test code = GFR) mL/min >=60 CREATININE (test code = CREAT) mg/dL 0.55-1.02 BUN/CREATININE RATIO (test code = BUN/CREA) 10-20 CALCIUM (test code = CA) mg/dL 8.5-10.1 CBC W/AUTO [id number] 04:44:00* Test Item Value Reference Range Interpretation Comments WHITE BLOOD CELL (test code = WBC) 13.2 K/mm3 4.5-12.5 H RED BLOOD CELL (test code = RBC) 4.19 mill/mm3 3.7-5.2 N HEMOGLOBIN (test code = HGB) 12.4 gram/dL 11.5-15.5 N HEMATOCRIT (test code = HCT) 37.9 % 36.0-46.0 N MEAN CELL VOLUME (test code = MCV) 90.5 fL 80-98 N MEAN CELL HGB (test code = MCH) 29.6 picogram 27.0-33.0 N MEAN CELL HGB CONCETRATION (test code = MCHC) 32.7 gram/dL 33.0-36. 0 L RED CELL DISTRIBUTION WIDTH (test code = RDW) 14.6 % 11.6-16. 2 N RED CELL DISTRIBUTION WIDTH SD (test code = RDW-SD) 47.7 fL 37 .0-51.0 N PLATELET COUNT (test code = PLT) 253 K/mm3 150-450 N MEAN PLATELET VOLUME (test code = MPV) 9.6 fL 6.7-11.0 N NEUTROPHIL % (test code = NT%) 73.4 % 39.0-69.0 H IMMATURE GRANULOCYTE % (test code = IG%) 0.5 % 0.0-5.0 N LYMPHOCYTE % (test code = LY%) 16.1 % 25.0-55.0 L MONOCYTE % (test code = MO%) 9.7 % 0.0-10.0 N EOSINOPHIL % (test code = EO%) 0.1 % 0.0-5.0 N BASOPHIL % (test code = BA%) 0.2 % 0.0-1.0 N NUCLEATED RBC % (test code = NRBC%) 0.0 % 0-0 N NEUTROPHIL # (test code = NT#) 9.67 K/mm3 1.8-7.7 H IMMATURE GRANULOCYTE # (test code = IG#) 0.07 x10 3/uL 0-0.03 H LYMPHOCYTE # (test code = LY#) 2.12 K/mm3 1.0-5.0 N MONOCYTE # (test code = MO#) 1.28 K/mm3 0-0.8 H EOSINOPHIL # (test code = EO#) 0.01 K/mm3 0.0-0.5 N BASOPHIL # (test code = BA#) 0.03 K/mm3 0.0-0.2 N NUCLEATED RBC # (test code = NRBC#) 0.00 K/mm3 0.0-0.1 N MANUAL DIFF REQUIRED (test code = MDIFF) NO CBC W/AUTO [id number] 04:41:00* Test Item Value Reference Range Interpretation Comments WHITE BLOOD CELL (test code = WBC) K/mm3 4.5-12.5 RED BLOOD CELL (test code = RBC) mill/mm3 3.7-5.2 HEMOGLOBIN (test code = HGB) 12.4 gram/dL 11.5-15.5 N HEMATOCRIT (test code = HCT) 37.9 % 36.0-46.0 N MEAN CELL VOLUME (test code = MCV) fL 80-98 MEAN CELL HGB (test code = MCH) picogram 27.0-33.0 MEAN CELL HGB CONCETRATION (test code = MCHC) gram/dL 33.0-36. 0 RED CELL DISTRIBUTION WIDTH (test code = RDW) % 11.6-16. 2 RED CELL DISTRIBUTION WIDTH SD (test code = RDW-SD) fL 37 .0-51.0 PLATELET COUNT (test code = PLT) K/mm3 150-450 MEAN PLATELET VOLUME (test code = MPV) fL 6.7-11.0 NEUTROPHIL % (test code = NT%) % 39.0-69.0 IMMATURE GRANULOCYTE % (test code = IG%) % 0.0-5.0 LYMPHOCYTE % (test code = LY%) % 25.0-55.0 MONOCYTE % (test code = MO%) % 0.0-10.0 EOSINOPHIL % (test code = EO%) % 0.0-5.0 BASOPHIL % (test code = BA%) % 0.0-1.0 NEUTROPHIL # (test code = NT#) K/mm3 1.8-7.7 LYMPHOCYTE # (test code = LY#) K/mm3 1.0-5.0 MONOCYTE # (test code = MO#) K/mm3 0-0.8 EOSINOPHIL # (test code = EO#) K/mm3 0.0-0.5 BASOPHIL # (test code = BA#) K/mm3 0.0-0.2 [id number] 20:33:00* Test Item Value Reference Range Interpretation Comments GLUBED (test code = GLUBED) 143 mg/dL 74-106 H Performed by certified lithoduplicator operator at [facility] [id number] 16:33:00* Test Item Value Reference Range Interpretation Comments GLUBED (test code = GLUBED) 143 mg/dL 74-106 H Performed by certified lithoduplicator operator at [facility] [id number] 12:36:00* Test Item Value Reference Range Interpretation Comments GLUBED (test code = GLUBED) 142 mg/dL 74-106 H Performed by certified lithoduplicator operator at [facility] [id number] 08:32:00* Test Item Value Reference Range Interpretation Comments GLUBED (test code = GLUBED) 150 mg/dL 74-106 H Performed by certified lithoduplicator operator at [facility] ARTERIAL BLOOD [id number] 22:37:00* Test Item Value Reference Range Interpretation Comments ARTERIAL BLOOD GAS PH (test code = PHA) 7.42 7.35-7.45 N ARTERIAL BLOOD GAS PCO2 (test code = PCO2A) 52.2 mm Hg 35-45 H ARTERIAL BLOOD GAS PO2 (test code = PO2A) 68.5 mmHg 80-100 L BICARBONATE TOTAL HCO3 (test code = HCO3) 32.9 mmol/L 23.0-27.0 H BASE EXCESS (test code = JACOB) 7.0 mmol/L -3.0-5.0 HH Results called to and read back by Sarah 22:37 - 03/07/2019; by Rick LEDESMA O2 SATURATION (test code = SATA) 93.5 % 90.0-98.0 N ABG TYPE (test code = TYPEA) Arterial FIO2 (test code = FIO2A) 32.0 ABG SITE (test code = SITEA) Rt RADIAL ARTERY MODIFIED ALLENS (test code = MODALL) Yes CHECK PERFORMED HEMATOCRIT (test code = HCT/ABG) 39 % 35-47 N TOTAL HGB (test code = THB) 13.2 gram/dL 11.5-15.5 N HGB O2 SAT (test code = HBOSAT) 92.1 % 94.00-98.00 L CARBOXYHEMOGLOBIN (test code = HOHGBT) 1.2 %totalHg 0.5-1.5 N METHEMOGLOBIN (test code = METHGB) 0.3 % 0.0-1.50 N O2 CONTENT (test code = O2CT) 17.1 % vol 18.0-22.0 L [id number] 21:36:00* Test Item Value Reference Range Interpretation Comments GLUBED (test code = GLUBED) 115 mg/dL 74-106 H Performed by certified lithoduplicator operator at [facility] [id number] 17:39:00* Test Item Value Reference Range Interpretation Comments GLUBED (test code = GLUBED) 119 mg/dL 74-106 H Performed by certified lithoduplicator operator at [facility] DRUGS OF ABUSE SCREEN [id number] 16:05:00* Test Item Value Reference Range Interpretation Comments UA PH DIPSTICK (test code = BABITA) 6.0 5.0-8.0 URN COCAINE (test code = COCAURN) NEGATIVE <300 ng/mL URN CANNABINOIDS (test code = CANNABURN) NEGATIVE <50 ng/mL URN AMPHETAMINE (test code = AMPHETURN) NEGATIVE <1000 ng/mL URN BARBITURATE (test code = BARBITURN) NEGATIVE <200 ng/mL URN BENZODIAZEPINE (test code = BENZOURN) POSITIVE <200 ng/mL A This test provides only a preliminary test result. A morespecific alternate chemical method must be used in order toobtain a confirmed analytical result. Gas chromatography/mass spectrometry (GC/MS) is thepreferred confirmatory method. Other chemical confirmationmethods are available. Clinical consideration and professional judgment should be applied to any drug of abusetest result, particularly when preliminary positive resultsare used.Unconfirmed screening results must not be used fornon-medical purposes (e.g., employment testing, legaltesting). URN OPIATES (test code = OPIATURN) POSITIVE <300 ng/mL A This test provides only a preliminary test result. A morespecific alternate chemical method must be used in order toobtain a confirmed analytical result. Gas chromatography/mass spectrometry (GC/MS) is thepreferred confirmatory method. Other chemical confirmationmethods are available. Clinical consideration and professional judgment should be applied to any drug of abusetest result, particularly when preliminary positive resultsare used.Unconfirmed screening results must not be used fornon-medical purposes (e.g., employment testing, legaltesting). URN PHENCYCLIDINE (PCP) (test code = PHENCURN) NEGATIVE <25 ng/ mL URN METHADONE (test code = METHAURN) NEGATIVE <300 ng/mL DRUGS OF ABUSE SCREEN [id number] 15:31:00* Test Item Value Reference Range Interpretation Comments UA PH DIPSTICK (test code = BABITA) 6.0 5.0-8.0 URN COCAINE (test code = COCAURN) <300 ng/mL URN CANNABINOIDS (test code = CANNABURN) <50 ng/mL URN AMPHETAMINE (test code = AMPHETURN) <1000 ng/mL URN BARBITURATE (test code = BARBITURN) <200 ng/mL URN BENZODIAZEPINE (test code = BENZOURN) <200 ng/mL URN OPIATES (test code = OPIATURN) <300 ng/mL URN PHENCYCLIDINE (PCP) (test code = PHENCURN) <25 ng/ mL URN METHADONE (test code = METHAURN) <300 ng/mL [id number] 14:04:00* Test Item Value Reference Range Interpretation Comments GLUBED (test code = GLUBED) 150 mg/dL 74-106 H Performed by certified lithoduplicator operator at [facility] PROCALCITONIN (PCT)2019-03-07 04:33:00* Test Item Value Reference Range Interpretation Comments PROCALCITONIN (PCT) (test code = PROCAL) < 0.05 ng/ml Concentration Interpretation (ng/mL) <0.51 Sepsis is not likely. Local bacterial infection is possible. (LOW RISK for progression to Sepsis) 0.51 - 2.00 Sepsis is possible, but other conditions are known to elevate PCT as well. (MODERATE RISK for progression to Sepsis) > 2.00 Sepsis is likely, unless other causes are known. (HIGH RISK for progression to Severe Sepsis or Septic Shock) 10.00 High likelihood of Severe Sepsis or Septic or higher Shock. *Increased PCT levels may not always be related to systemic bacterial infection.*Low PCT levels do not automatically exclude the presence of bacterial infection.*All results should be interpreted taking into account the patients history. LACTIC [id number] 04:23:00* Test Item Value Reference Range Interpretation Comments LACTIC ACID (test code = LACT) 1.0 mmol/L 0.4-1.9 N - CTA [id number] 03:22:00 Name: LAURA KNIGHT [facility] : 1950 Age/S: 68 / F [address] [facility] Unit #: [id number] Loc: [place] [address] Phys: Dionna Tompkins MD Acct: [id number] Dis Date: Status: REG ER PHONE #: [phone] Exam Date: 03/07/2019 0240 FAX #: [phone] Reason: SOB EXAMS: CPT CODE: [id number] CTA CHEST 72552 AFTER HOURS SERVICE ON: 03/07/2019 3:[address] Scan of the Chest With Contrast Location Code M12 History: SOB Technique: Scans were performed on a helical scanner post IV contrast. Coronal and sagittal reconstructions were performed. One or more of the following dose reduction techniques were used: Automated exposure control, adjustment of the mA and/or kV according to patient size, and/or utilization of iterative reconstruction technique. FINDINGS: Study is motion degraded which limits evaluation of the smaller vessels. There are no filling defects in the pulmonary arteries to suggest a pulmonary embolism. No large central or saddle embolus is seen in the pulmonary trunk. No aortic aneurysm or dissection seen. There is cardiomegaly. There is no pericardial effusion. Few small right paratracheal lymph nodes are seen measuring under 1 cm. There is no pulmonary edema. Scattered atelectatic changes are seen in the left upper lobe and both lower lobes. There are trace bilateral pleural effusions with compressive atelectasis. IMPRESSION: No pulmonary embolism. Cardiomegaly. No pulmonary edema. Scattered atelectatic changes Small bilateral pleural effusions. at 0322 Reported and signed by: Sivan Bang M.D. PAGE 1 Signed Report (CONTINUED) Name: LAURA KINGHTAUD [facility] : 1950 Age/S: 68 / F [address] [facility] Unit #: [id number] Loc: [place] [address] Phys: Dionna Tompkins MD Acct: [id number] Dis Date: Status: REG ER PHONE #: [phone] Exam Date: 03/07/2019 0240 FAX #: [phone] Reason: SOB EXAMS: CPT CODE: [id number] CTA CHEST 38648 < Continued> CC: Dionna Tompkins MD Technologist:Sukhdev Askew RT(R) CTDI: DLP: Trnscb Date/Time: 03/07/2019 (321) [email or web address] Orig Print D/T: S: 03/07/2019 (324) PAGE 2 Signed Report URINALYSIS [id number] 02:45:00* Test Item Value Reference Range Interpretation Comments UA COLOR (test code = COLU) DARK YELLOW YELLOW A UA APPEARANCE (test code = APPU) CLOUDY CLEAR A UA GLUCOSE DIPSTICK (test code = DGLUU) NEGATIVE mg/dL NEGATIVE UA BILIRUBIN DIPSTICK (test code = BILU) NEGATIVE NEGATIVE UA KETONE DIPSTICK (test code = KETU) NEGATIVE mg/dL NEGATIVE UA SPECIFIC GRAVITY (test code = SGU) 1.025 1.001-1.035 UA BLOOD DIPSTICK (test code = LANDON) NEGATIVE NEGATIVE UA PH DIPSTICK (test code = BABITA) 6.0 5.0-8.0 UA PROTEIN DIPSTICK (test code = PROU) NEGATIVE mg/dL Neg-15 UA UROBILINIOGEN DIPSTICK (test code = URO) 0.2 mg/dL 0.0-0.2 UA NITRITE DIPSTICK (test code = SHENA) NEGATIVE NEGATIVE UA LEUKOCYTE ESTERASE W REFLEX (test code = LEUUR) 2+ NEG ATIVE A UA WBC (test code = WBCU) 40-50 per HPF 0-5 A UA RBC (test code = RBCU) 5-10 per HPF 0-5 A UA WBC CLUMPS (test code = WBCUCL) 3-6 /HPF NONE A UA EPITHELIAL CELLS (test code = EPIU) Moderate (5-10/hpf) per HPF Few UA BACTERIA (test code = BACU) MODERATE per HPF NONE A UA MUCUS (test code = MUCU) MODERATE per LPF NONE-FEW A UA AMORPHOUS SEDIMENT (test code = AMORU) MODERATE per LPF NONE A Urine Source? Clean CatchDRUGS OF ABUSE SCREEN [id number] 02:45:00* Test Item Value Reference Range Interpretation Comments URN COCAINE (test code = COCAURN) <300 ng/mL URN CANNABINOIDS (test code = CANNABURN) <50 ng/mL URN AMPHETAMINE (test code = AMPHETURN) <1000 ng/mL URN BARBITURATE (test code = BARBITURN) <200 ng/mL URN BENZODIAZEPINE (test code = BENZOURN) <200 ng/mL URN OPIATES (test code = OPIATURN) <300 ng/mL URN PHENCYCLIDINE (PCP) (test code = PHENCURN) <25 ng/ mL URN METHADONE (test code = METHAURN) <300 ng/mL Urine Source? Clean CatchURINALYSIS [id number] 02:43:00* Test Item Value Reference Range Interpretation Comments UA COLOR (test code = COLU) DARK YELLOW YELLOW A UA APPEARANCE (test code = APPU) CLOUDY CLEAR A UA BILIRUBIN DIPSTICK (test code = BILU) NEGATIVE UA SPECIFIC GRAVITY (test code = SGU) 1.001-1.035 UA PH DIPSTICK (test code = BABITA) 5.0-8.0 UA UROBILINIOGEN DIPSTICK (test code = URO) mg/dL 0.0-0.2 UA NITRITE DIPSTICK (test code = SHENA) NEGATIVE UA LEUKOCYTE ESTERASE W REFLEX (test code = LEUUR) NEG ATIVE UA WBC (test code = WBCU) per HPF 0-5 UA RBC (test code = RBCU) per HPF 0-5 UA EPITHELIAL CELLS (test code = EPIU) per HPF Few UA BACTERIA (test code = BACU) per HPF NONE Urine Source? Clean CatchDRUGS OF ABUSE SCREEN [id number] 02:43:00* Test Item Value Reference Range Interpretation Comments URN COCAINE (test code = COCAURN) <300 ng/mL URN CANNABINOIDS (test code = CANNABURN) <50 ng/mL URN AMPHETAMINE (test code = AMPHETURN) <1000 ng/mL URN BARBITURATE (test code = BARBITURN) <200 ng/mL URN BENZODIAZEPINE (test code = BENZOURN) <200 ng/mL URN OPIATES (test code = OPIATURN) <300 ng/mL URN PHENCYCLIDINE (PCP) (test code = PHENCURN) <25 ng/ mL URN METHADONE (test code = METHAURN) <300 ng/mL Urine Source? Clean CatchURINALYSIS [id number] 02:43:00* Test Item Value Reference Range Interpretation Comments UA COLOR (test code = COLU) DARK YELLOW YELLOW A UA APPEARANCE (test code = APPU) CLOUDY CLEAR A UA GLUCOSE DIPSTICK (test code = DGLUU) NEGATIVE mg/dL NEGATIVE UA BILIRUBIN DIPSTICK (test code = BILU) NEGATIVE NEGATIVE UA KETONE DIPSTICK (test code = KETU) NEGATIVE mg/dL NEGATIVE UA SPECIFIC GRAVITY (test code = SGU) 1.025 1.001-1.035 UA BLOOD DIPSTICK (test code = LANDON) NEGATIVE NEGATIVE UA PH DIPSTICK (test code = BABITA) 6.0 5.0-8.0 UA PROTEIN DIPSTICK (test code = PROU) NEGATIVE mg/dL Neg-15 UA UROBILINIOGEN DIPSTICK (test code = URO) 0.2 mg/dL 0.0-0.2 UA NITRITE DIPSTICK (test code = SHENA) NEGATIVE NEGATIVE UA LEUKOCYTE ESTERASE W REFLEX (test code = LEUUR) 2+ NEG ATIVE A UA WBC (test code = WBCU) per HPF 0-5 UA RBC (test code = RBCU) per HPF 0-5 UA EPITHELIAL CELLS (test code = EPIU) per HPF Few UA BACTERIA (test code = BACU) per HPF NONE Urine Source? Clean CatchDRUGS OF ABUSE SCREEN [id number] 02:43:00* Test Item Value Reference Range Interpretation Comments URN COCAINE (test code = COCAURN) <300 ng/mL URN CANNABINOIDS (test code = CANNABURN) <50 ng/mL URN AMPHETAMINE (test code = AMPHETURN) <1000 ng/mL URN BARBITURATE (test code = BARBITURN) <200 ng/mL URN BENZODIAZEPINE (test code = BENZOURN) <200 ng/mL URN OPIATES (test code = OPIATURN) <300 ng/mL URN PHENCYCLIDINE (PCP) (test code = PHENCURN) <25 ng/ mL URN METHADONE (test code = METHAURN) <300 ng/mL Urine Source? Clean CatchB-TYPE NATRIURETIC [id number] 02:10:00* Test Item Value Reference Range Interpretation Comments B-TYPE NATRIURETIC PEPTIDE (test code = BNP) 88.39 pgram/mL 0-100 N ARTERIAL BLOOD [id number] 02:05:00* Test Item Value Reference Range Interpretation Comments ARTERIAL BLOOD GAS PH (test code = PHA) 7.43 7.35-7.45 N ARTERIAL BLOOD GAS PCO2 (test code = PCO2A) 50.5 mm Hg 35-45 H ARTERIAL BLOOD GAS PO2 (test code = PO2A) 97.2 mmHg 80-100 N BICARBONATE TOTAL HCO3 (test code = HCO3) 33.0 mmol/L 23.0-27.0 H BASE EXCESS (test code = JACOB) 7.3 mmol/L -3.0-5.0 HH Results called to and read back by Carol Ann Pulido 02:01 - 03/07/2019; by Faviola CHRISTOPHER LAND ECONOMIST ABG O2 SATURATION (test code = SATA) 96.6 % 90.0-98.0 N ABG TYPE (test code = TYPEA) Arterial FIO2 (test code = FIO2A) 60.0 ABG TEMPERATURE (test code = TEMPA) 37.0 Celsius ABG SITE (test code = SITEA) Lt RADIAL ARTERY MODIFIED ALLENS (test code = MODALL) Unable CHECK PERFORMED HEMATOCRIT (test code = HCT/ABG) 42 % 35-47 N TOTAL HGB (test code = THB) 14.2 gram/dL 11.5-15.5 N HGB O2 SAT (test code = HBOSAT) 94.6 % 94.00-98.00 N CARBOXYHEMOGLOBIN (test code = HOHGBT) 1.8 %totalHg 0.5-1.5 H METHEMOGLOBIN (test code = METHGB) 0.3 % 0.0-1.50 N O2 CONTENT (test code = O2CT) 19.0 % vol 18.0-22.0 N A-A GRADIENT (test code = AAGRADE) 275.1 mm Hg PROTHROMBIN [id number] 01:45:00* Test Item Value Reference Range Interpretation Comments PROTHROMBIN TIME PATIENT (test code = PTP) 14.0 seconds 9.0-14.0 N INTERNATIONAL NORMAL RATIO (test code = INR) 1.2 0.8-1.2 N The therapeutic range for oral anticoagulant therapy formost indications is an international normalized ratio (INR)of between 2.0 and 3.0. The recommended therapeutic INRrange for various clinical situations is listed below: Clinical Situation INR range Pulmonary e mbolism treatment (2.0-3.0)Venous thrombosis treatmentVenous thrombosis prophylaxis (high risk surgery)Prevention of systemic embolism from: Acute myocardial infarction Valvular heart disease Atrial fibrillation Mechanical prosthetic heart valves (2.5-3.5) IS PATIENT ON ANTICOAGULANTS? NTHROMBOPLASTIN TIME [id number] 01:45:00* Test Item Value Reference Range Interpretation Comments THROMBOPLASTIN TIME PARTIAL (test code = PTT) 26.7 seconds 25.0-36. 5 N IS PATIENT ON ANTICOAGULANTS? NCBC W/O [id number] 01:42:00* Test Item Value Reference Range Interpretation Comments WHITE BLOOD CELL (test code = WBC) 16.7 K/mm3 4.5-12.5 H RED BLOOD CELL (test code = RBC) 4.58 mill/mm3 3.7-5.2 N HEMOGLOBIN (test code = HGB) 13.5 gram/dL 11.5-15.5 N HEMATOCRIT (test code = HCT) 42.6 % 36.0-46.0 N MEAN CELL VOLUME (test code = MCV) 93.0 fL 80-98 N MEAN CELL HGB (test code = MCH) 29.5 picogram 27.0-33.0 N MEAN CELL HGB CONCETRATION (test code = MCHC) 31.7 gram/dL 33.0-36. 0 L RED CELL DISTRIBUTION WIDTH (test code = RDW) 14.8 % 11.6-16. 2 N PLATELET COUNT (test code = PLT) 248 K/mm3 150-450 N MEAN PLATELET VOLUME (test code = MPV) 9.4 fL 6.7-11.0 N BASIC METABOLIC [id number] 01:39:00* Test Item Value Reference Range Interpretation Comments SODIUM (test code = NA) 137 mmol/L 136-145 N POTASSIUM (test code = K) 3.8 mmol/L 3.5-5.1 N CHLORIDE (test code = CL) 99.0 mmol/L 98-107 N CARBON DIOXIDE (test code = CO2) 33.0 mmol/L 21-32 H ANION GAP (test code = GAP) 8.8 10-20 L GLUCOSE (test code = GLU) 150 mg/dL 74-106 H BLOOD UREA NITROGEN (test code = BUN) 15 mg/dL 7-18 N GLOMERULAR FILTRATION RATE (test code = GFR) > 60 mL/min >=60 Estimated GFR by using Modified MDRD formula.Chronic kidney disease is defined as either kidney damageor GFR <60 mL/min/1.73 m2 for >3 months. CREATININE (test code = CREAT) 0.90 mg/dL 0.55-1.02 N Note change in reference range due to change in reagent. BUN/CREATININE RATIO (test code = BUN/CREA) 16.2 10-20 N CALCIUM (test code = CA) 8.8 mg/dL 8.5-10.1 N HEPATIC FUNCTION [id number] 01:39:00* Test Item Value Reference Range Interpretation Comments TOTAL PROTEIN (test code = PROT) 7.4 gram/dL 6.4-8.2 N ALBUMIN (test code = ALB) 2.6 g/dL 3.4-5.0 L GLOBULIN (test code = GLOB) 4.8 gram/dL 2.7-4.2 H ALBUMIN/GLOBULIN RATIO (test code = A/G) 0.5 0.75-1.50 L BILIRUBIN TOTAL (test code = BILT) 0.90 mg/dL 0.0-1.0 N BILIRUBIN DIRECT (test code = BILD) 0.33 mg/dL 0.0-0.20 H SGOT/AST (test code = AST) 78 IUnit/L 15-37 H SGPT/ALT (test code = ALT) 32 IUnit/L 12-78 N ALKALINE PHOSPHATASE TOTAL (test code = ALKP) 97 IUnit/L 45-117 N Note change in reference range due to change in reagent. [id number] 01:39:00* Test Item Value Reference Range Interpretation Comments LIPASE (test code = LIP) 333 U/L 73.0-393.0 N [id number] 01:39:00* Test Item Value Reference Range Interpretation Comments MAGNESIUM (test code = MAG) 1.6 mg/dL 1.8-2.4 L [id number] 01:39:00* Test Item Value Reference Range Interpretation Comments TROPONIN-I (test code = TROPI) <0.015 ng/mL 0-0.045 N - XR CHEST 1 [id number] 01:37:00 FAX: Dionna Tompkins MD [phone] [place]: B St: REG Name: LAURA CYR [facility] : [birth year] Age/S: 68/F [address] Unit #: [id number] Loc: [place] [address] Phys: Dionna Tompkins MD Acct: [id number] Dis Date: Status: REG ER PHONE #: [phone] Exam Date: 03/07/2019 0120 FAX #: [phone] Reason: Shortness of Breath EXAMS: CPT CODE: [id number] XR CHEST 1 V 11947 LOCATION: 3 EXAM: - XR CHEST 1 V HISTORY: Shortness of Breath TECHNI QUE: Frontal view of the chest. COMPARISON: 07/19/2016 FIND INGS: The patient is rotated. The lungs are adequately inflated. Mild central vascular congestion is present. No evidence of pneumothorax or pleural effusion. The heart is enlarged. Mediastinal contours are within normal limits. Osseous structures are intact. IMPRESSION: Mild pulmonary vascular congestion. Cardiomegaly. at 0137 Reported and signed by: Vane Hunt M.D. CC: Dionna Tompkins MD Technologist: Mesha HACKETT RT Trnscrd Date/Time/By: 03/07/2019 ( 0137) : By: [email or web address] Orig Print D/T: S: 03/07/2019 (0141) PAGE 1 Signed Report LACTIC [id number] 01:35:00* Test Item Value Reference Range Interpretation Comments LACTIC ACID (test code = LACT) 1.2 mmol/L 0.4-1.9 N BASIC METABOLIC [id number] 01:28:00* Test Item Value Reference Range Interpretation Comments SODIUM (test code = NA) 137 mmol/L 136-145 N POTASSIUM (test code = K) 3.8 mmol/L 3.5-5.1 N CHLORIDE (test code = CL) 99.0 mmol/L 98-107 N CARBON DIOXIDE (test code = CO2) mmol/L 21-32 ANION GAP (test code = GAP) 10-20 GLUCOSE (test code = GLU) mg/dL 74-106 BLOOD UREA NITROGEN (test code = BUN) mg/dL 7-18 GLOMERULAR FILTRATION RATE (test code = GFR) mL/min >=60 CREATININE (test code = CREAT) mg/dL 0.55-1.02 BUN/CREATININE RATIO (test code = BUN/CREA) 10-20 CALCIUM (test code = CA) mg/dL 8.5-10.1 HEPATIC FUNCTION [id number] 01:28:00* Test Item Value Reference Range Interpretation Comments TOTAL PROTEIN (test code = PROT) gram/dL 6.4-8.2 ALBUMIN (test code = ALB) g/dL 3.4-5.0 GLOBULIN (test code = GLOB) gram/dL 2.7-4.2 ALBUMIN/GLOBULIN RATIO (test code = A/G) 0.75-1.50 BILIRUBIN TOTAL (test code = BILT) mg/dL 0.0-1.0 BILIRUBIN DIRECT (test code = BILD) mg/dL 0.0-0.20 SGOT/AST (test code = AST) IUnit/L 15-37 SGPT/ALT (test code = ALT) IUnit/L 12-78 ALKALINE PHOSPHATASE TOTAL (test code = ALKP) IUnit/L 45-117 [id number] 01:28:00* Test Item Value Reference Range Interpretation Comments LIPASE (test code = LIP) U/L 73.0-393.0 [id number] 01:28:00* Test Item Value Reference Range Interpretation Comments MAGNESIUM (test code = MAG) mg/dL 1.8-2.4 [id number] 01:28:00* Test Item Value Reference Range Interpretation Comments TROPONIN-I (test code = TROPI) ng/mL 0-0.045 - XR KNEE 3 V [id number] 21:07:00 FAX: Jomar Love MD [phone] [place]: B St: REG Name: LAURA CYR [facility] : [birth year] Age/S: 68/F [address] Unit #: [id number] Loc: [place] [address] Phys: Jomar Love MD Acct: [id number] Dis Date: Status: REG ER PHONE #: [phone] Exam Date: 02/03/20192030 FAX #: [phone] Reason: KNEE PAIN EXAMS: CPT CODE: [id number] XR KNEE 3 [place] [address] HISTORY: Pain after trauma. COMPARISON: None available. Location: TH. 2 views of the right and left leg and knee: No acute fracture or dis location of either knee or leg. Severe tricompartment joint space narrowing bilaterally with marginal osteophytes consistent with advanced o steoarthritis. No osteochondral lesions. No knee joint fluid is noted on either side. Suboptimal lateral view of the left knee. No joint fluid is visible. No acute fracture of the leg is noted either. Ankle mo rtise is preserved bilaterally. No osteochondral lesion of either talus. IMPRESSION: No acute fracture or dislocation of either knee or leg with advanced degenerative changes with severe tric ompartment joint space narrowing of the knee in all 3 compartments. Mar ginal osteophytes consistent with advanced osteoarthritis. Ankle joints and ankle mortise are preserved bilaterally. No joint fluid is visible. Electronically Signed by Carlos Alberto Guerrero on at 2106 Reported and signed by: Tete Everett CC: Jomar Love MD Techn ologist: Lopez Hernández RT(R); Los Vinson RT(R Trnmord Date/Alex e/By: 02/03/2019 (2106) : By: [email or web address] Orig Print D/T: S: 02/03/2019 (2110) PAGE 1 Signed Report - XR TIBIA/FIBULA 2 V [id number] 21:07:00 FAX: Jomar Love MD [phone] [place]: B St: REG Name: LAURA CYR [facility] : [birth year] Age/S: 68/F [address] [facility] Unit #: [id number] Loc: [place], [place] [address] Phys: Jomar Love MD Acct: [id number] Dis Date: Status: REG ER PHONE #: [phone] Exam Date: 02/03/20192030 FAX #: [phone] Reason: LEG PAIN EXAMS: CPT CODE: [id number] XR TIBIA/[place] [address] HISTORY: Pain after trauma. COMPARISON: None available. Location: TH. 2 views of the right and left leg and knee: No acute fracture or dis location of either knee or leg. Severe tricompartment joint space narrowing bilaterally with marginal osteophytes consistent with advanced o steoarthritis. No osteochondral lesions. No knee joint fluid is noted on either side. Suboptimal lateral view of the left knee. No joint fluid is visible. No acute fracture of the leg is noted either. Ankle mo rtise is preserved bilaterally. No osteochondral lesion of either talus. IMPRESSION: No acute fracture or dislocation of either knee or leg with advanced degenerative changes with severe tric ompartment joint space narrowing of the knee in all 3 compartments. Mar ginal osteophytes consistent with advanced osteoarthritis. Ankle joints and ankle mortise are preserved bilaterally. No joint fluid is visible. Electronically Signed by Carlos Alberto Guerrero on at 210 Reported and signed by: Tete Everett CC: Jomar Love MD Techn ologist: Lopez Hernández RT(R); Los Vinson RT(R Trnscrd Date/Alex e/By: 02/03/2019 (2106) : By: [email or web address] Orig Print D/T: S: 02/03/2019 (2110) PAGE 1 Signed Report - XR T-SPINE 3 [id number] 21:03:00 FAX: Jomar Love MD [phone] [place]: St: REG Name: LAURA CYR [facility] : [birth year] Age/S: 68/F [address] [facility] Unit #: [id number] Loc: [place] [address] Phys: Jomar Love MD Acct: [id number] Dis Date: Status: REG ER PHONE #: [phone] Exam Date: 02/03/20192026 FAX #: [phone] Reason: BACK PAIN EXAMS: CPT CODE: [id number] XR T-SPINE 3 VIEWS 38845 HISTORY: Pain after fall. COMPARISON: None available. Location: TH. 3 views of the L-spine. Vertebral body heights are maintained. Disc space are relatively preserved. Pedicular screws bilaterally at L5-S1 level with posterior lateral fusion which appears to be in good anatomic align ment. SI joints are preserved. IMPRESSION: No acute fracture or dislocation. Vertebral body heights are mainta ined. Pedicular screws with posterior lateral fusion at L5-S1 level in good anatomic alignment. 2 views of the T-spine: The lateral view is limited due to technique. No acute fracture or dislocation. Vertebral body heights are maintained. Narrowed disc space throughout the T-spine. Mild dextroscoliosis. Bridging an terolateral marginal osteophytes. IMPRESSION: No acute fracture or dislocation. Lateral view is limited due to tech nique. Vertebral body heights are maintained. at 2103 Reported and signed by: Mao Guerrero M.D. CC: Jomar Love MD Technologist: Lopez Hernández RT(R); Los Vinson RT(R Trnscrd Date/Time/By: 02/03/2019 (2102) : By: [email or web address] Orig Print D/T: S: 02/03/2019 (2106) PAGE 1 Signed Report - XR L-SPINE 2/3 [id number] 21:03:00 FAX: Jomar Love MD [phone] [place]: St: REG Name: LAURA CYR [facility] : [birth year] Age/S: 68/F [address] [facility] Unit #: [id number] Loc: [place] [address] Phys: Jomar Love MD Acct: [id number] Dis Date: Status: REG ER PHONE #: [phone] Exam Date: 02/03/20192030 FAX #: [phone] Reason: BACK PAIN EXAMS: CPT CODE: [id number] XR L-SPINE 2/3 VIEWS 45589 HISTORY: Pain after fall. COMPARISON: None available. Location: TH. 3 views of the L-spine. Vertebral body heights are maintained. Disc space are relatively preserved. Pedicular screws bilaterally at L5-S1 level with posterior lateral fusion which appears to be in good anatomic align ment. SI joints are preserved. IMPRESSION: No acute fracture or dislocation. Vertebral body heights are mainta ined. Pedicular screws with posterior lateral fusion at L5-S1 level in good anatomic alignment. 2 views of the T-spine: The lateral view is limited due to technique. No acute fracture or dislocation. Vertebral body heights are maintained. Narrowed disc space throughout the T-spine. Mild dextroscoliosis. Bridging an terolateral marginal osteophytes. IMPRESSION: No acute fracture or dislocation. Lateral view is limited due to tech nique. Vertebral body heights are maintained. at 2103 Reported and signed by: Mao Guerrero M.D. CC: Jomar Love MD Technologist: Lopez Hernández RT(R); Los Vinson RT(R Trnmord Date/Time/By: 02/03/2019 (2102) : By: [email or web address] Orig Print D/T: S: 02/03/2019 (2106) PAGE 1 Signed Report - XR HUMERUS 2 + V [id number] 21:00:00 FAX: Jomar Love MD [phone] [place]: St: REG Name: Jaycob BOLIVARLAURA [facility] : [birth year] Age/S: 68/F [address] [facility] Unit #: [id number] Loc: [place] [address] Phys: Jomar Love MD Acct: [id number] Dis Date: Status: REG ER PHONE #: [phone] Exam Date: 02/03/20192030 FAX #: [phone] Reason: arm pain EXAMS: CPT CODE: [id number] XR HUMERUS 2 + [place] [address] HISTORY: Pain after fall. COMPARISON: None available. Location: TH. 3 views of the left shoulder and 2 views of the left humerus: No acute fracture or dislocation. Narrowed shoulder and AC joints and the sternoc lavicular joints. Elbow joint is narrowed as well. Mineralization is nor mal. Soft tissues are normal. IMPRESSION: No acute fracture or dislocation of the left shoulder or the left humerus. Degenerative changes with narrowed joint spaces. Electronically Sig per by Carlos Alberto Guerrero on 02/03/2019 at 2100 Reported and signed by: Mao Guerrero M.D. CC: Jomar Love MD Technologist: Lopez Hernández RT(R); Los henley Vinson, RT(R Trnscrd Date/Time/By: 02/03/2019 (2099) : By: Ronald 4 Orig Print D/T: S: 02/03/2019 (2102) PAGE 1 Signed Report - XR SHOULDER 2 + V [id number] 21:00:00 FAX: Jomar Love MD [phone] [place]: St: REG Name: [facility] : [birth year] Age/S: 68/F [address] [facility] Unit #: [id number] Loc: [place] [address] Phys: Jomar Love MD Acct: [id number] Dis Date: Status: REG ER PHONE #: [phone] Exam Date: 02/03/20192030 FAX #: [phone] Reason: arm pain EXAMS: CPT CODE: [id number] XR SHOULDER 2 + [place] LT [id number] HISTORY: Pain after fall. COMPARISON: None available. Location: TH. 3 views of the left shoulder and 2 views of the left humerus: No acute fracture or dislocation. Narrowed shoulder and AC joints and the sternoc lavicular joints. Elbow joint is narrowed as well. Mineralization is nor mal. Soft tissues are normal. IMPRESSION: No acute fracture or dislocation of the left shoulder or the left humerus. Degenerative changes with narrowed joint spaces. Electronically Sig per by Carlos Alberto Guerrero on 02/03/2019 at 2100 Reported and signed by: Mao Guerrero M.D. CC: Jomar Love MD Technologist: Lopez Hernández RT(R); Los Garcia Rosa, RT(R Trnscrd Date/Time/By: 02/03/2019 (2099) : By: Ronald 4 Orig Print D/T: S: 02/03/2019 (2102) PAGE 1 Signed Report - XR HIP BI W/[id number] 20:58:00 FAX: Jomar Love MD [phone] [place]: St: REG Name: LAURA CYR [facility] : [birth year] Age/S: 68/F [address] [facility] Unit #: [id number] Loc: [place], [place] [address] Phys: Jomar Love MD Acct: [id number] Dis Date: Status: REG ER PHONE #: [phone] Exam Date: 02/03/20192001 FAX #: [phone] Reason: HIP PAIN EXAMS: CPT CODE: [id number] XR HIP BI W/PELVIS 40842 HISTORY: Pain. BOO RISON: None available. Right femur series and bilateral hip series : Location: TH. No acute fracture or dislocation. B ilaterally narrowed hip joints. No AVN of either hip. Trabecular pattern is normal. Symphysis is well opposed. Marginal osteophytes from the rig ht greater trochanter. Knee joint is narrowed in all 3 compartments. Mar ginal osteophytes. IMPRESSION: No acute fractu re of either hip or right femur. Degenerative changes. Electronical ly Signed by Carlos Alberto Guerrero on 02/03/2019 at 2057 Rep orted and signed by: Mao Guerrero M.D. CC: Jomar Love MD Technologist: Lopez Hernández RT(R); Los Vinson RT(R Trnscrd Date/Time/By: 02/03/2019 (2057) : By: [email or web address] Orig Print D/T: S: 02/03/2019 (2100) P AGE 1 Signed Report - XR FEMUR MIN 2 VWS [id number] 20:58:00 FAX: Jomar Love MD [phone] [place]: St: REG Name: LAURA CYR [facility] : [birth year] Age/S: 68/F [address] [facility] Unit #: [id number] Loc: [place] [address] Phys: Jomar Love MD Acct: [id number] Dis Date: Status: REG ER PHONE #: [phone] Exam Date: 02/03/20192030 FAX #: [phone] Reason: THIGH PAIN EXAMS: CPT CODE: [id number] XR FEMUR MIN [address] [place] [address] HISTORY: Pain. BOO RISON: None available. Right femur series and bilateral hip series : Location: TH. No acute fracture or dislocation. B ilaterally narrowed hip joints. No AVN of either hip. Trabecular pattern is normal. Symphysis is well opposed. Marginal osteophytes from the rig ht greater trochanter. Knee joint is narrowed in all 3 compartments. Mar ginal osteophytes. IMPRESSION: No acute fractu re of either hip or right femur. Degenerative changes. Electronical ly Signed by Carlos Alberto Guerrero on 02/03/2019 at 2057 Rep orted and signed by: Mao Guerrero M.D. CC: Jomar Love MD Technologist: Lopez Hernández RT(R); Los Vinson RT(R Trnmord Date/Time/By: 02/03/2019 (2057) : By: bao [email or web address] Orig Print D/T: S: 02/03/2019 (2100) P AGE 1 Signed Report - CT C- SPINE W/O [id number] 20:55:00 Name: LAURA KNIGHT [facility] : 1950 Age/S: 68 / F [address] Unit #: [id number] Loc: [place] [address] Phys: Jomar Love MD Acct: [id number] Dis Date: Status: REG ER PHONE #: [phone] Exam Date: 02/03/20191950 FAX #: [phone] Reason: Neck Pain EXAMS: CPT CODE: [id number] CT C-SPINE W/O CONTRAST 67875 HISTORY: Pain. COMPARISON: None available. Location: TH. CT CERVICAL SPINE WITHOUT CONTRAST: AUTOMATED EXPOSURE CONTROL. No acute fracture of the cervical spine. Cervical fusion with metallic internal fixation plate at C3-C4 level anteriorly is flush against the vertebral body and in good anatomic alignment. Vertebral body heights are maintained. Narrowed disc space at C5-C6 and C6-C7 levels. Uncovertebral joints are narrowed. Levoscoliosis. No prevertebral soft tissue swelling. Multilevel moderate canal and moderate foraminal stenosis from posterior osteophyte and facet hypertrophy. Correlate with radicular symptoms. Superior mediastinum appears unremarkable. Lung apices are clear. IMPRESSION: No acute fracture of the cervical spine. Anatomic alignment. Cervical fusion with metallic internal fixation plate anteriorly at C3-C4 level in good anatomic alignment. Degenerative change. 2 VIEWS OF THE RIGHT FEMUR: No acute fracture or dislocation. The hip joint is narrowed. No AVN. Trabecular pattern is normal. Knee joint is narrowed in all 3 compartments. Soft tissues are normal. IMPRESSION: No acute fracture or dislocation. Narrowed hip and knee joints. at 2054 Reported and signed by: Mao Guerrero M.D. CC: Jomar Love MD Technologist:Kiersten Bro RT(R); [facility] Doa CTDI: DLP: Trnscb Date/Time: 02/03/2019 (2054) [email or web address] Orig Print D/T: S: 02/03/2019 (2058) PAGE 1 Signed Report - XR FEMUR MIN 2 VWS [id number] 20:55:00 FAX: Jomar Love MD [phone] [place]: St: REG Name: LAURA CYR [facility] : [birth year] Age/S: 68/F [address] [facility] Unit #: [id number] Loc: [place] [address] Phys: Jomar Love MD Acct: [id number] Dis Date: Status: REG ER PHONE #: [phone] Exam Date: 02/03/20192030 FAX #: [phone] Reason: THIGH PAIN EXAMS: CPT CODE: [id number] XR FEMUR MIN [address] [place] [address] HISTORY: Pain. BOO RISON: None available. Location: TH. CT CERVICAL SPI NE WITHOUT CONTRAST: AUTOMATED EXPOSURE CONTROL. No acute fracture of the cervical spine. Cervical fusion with metallic internal fixation p late at C3-C4 level anteriorly is flush against the vertebral body and in good anatomic alignment. Vertebral body heights are maintained. Narrowed disc space at C5-C6 and C6-C7 levels. Uncovertebral joints are narrowed. Levoscoliosis. No prevertebral soft tissue swelling. Multilevel moderate canal and moderate foraminal stenosis from posterior osteophyte and facet hypertrophy. Correlate with radicular symptoms. Superior mediastinum appears unremarkable. Lung apices are clear. IMPRESSION: No acute fracture of the cervical spine. Anatomic alignment. Cervical fusion with metallic internal fixation plate anteriorly at C3-C4 level in good anatomic alignment. Degenerative change. 2 VIEWS OF THE RIGHT FEMUR: No acute fracture or dislocation. The hip joint is narrowed. No AVN. Trabecular pattern is normal. Knee joint is narrowed in all 3 compartments. Soft tissues are normal. IMPRESSION: No acute fracture or dislocation. Narrowed hip and knee joints. at 2055 Reported and s igned by: Mao Guerrero M.D. CC: Jomar Love MD Technologist: Lopez Hernández RT(R); Los Vinson, RT(R Trnscrd Date/Time/By: 02/03/2019 (2054) : By: [email or web address] Orig Print D/T: S: 02/03/2019 (2058) PAGE 1 Signed Report - CT HEAD/BRAIN W/O [id number] 20:07:00 Name: LAURA KNIGHT [facility] : 1950 Age/S: 68 / F [address] Unit #: [id number] Loc: [place] [address] Phys: Jomar Love MD Acct: [id number] Dis Date: Status: REG ER PHONE #: [phone] Exam Date: 02/03/20191950 FAX #: [phone] Reason: HEADACHE EXAMS: CPT CODE: [id number] CT HEAD/BRAIN W/O CONT 89167 HISTORY: Pain after fall. COMPARISON: MRI from October 20, 2008. Location: TH. CT brain without contrast: Automated exposure control. Note: Extensive dental artifact obscures the posterior fossa. No acute intracranial bleeds or extra-axial collections are noted. No acute territorial vascular infarction is noted. The sulci, gyri, ventricles and subarachnoid spaces and the basilar cisterns are normal for patient's age. No herniation or hydrocephalus or midline shift is noted. Mild periventricular ischemic gliosis is noted. Age-appropriate atrophy is noted as well. Portions of the visualized paranasal sinuses are normal. No obvious bony calvarial defect is noted. IMPRESSION: No acute intracranial bleeds or extra-axial collections. No acute territorial vascular infarction. No herniation or hydrocephalus or midline shift. Chronic white matter ischemic disease and atrophy . at 2007 Reported and signed by: Mao Guerrero M.D. PAGE 1 Signed Report (CONTINUED) Name: LAURA KNIGHT [facility] : 1950 Age/S: 68 / F [address] Unit #: [id number] Loc: [place] [address] Phys: Jomar Love MD Acct: [id number] Dis Date: Status: REG ER PHONE #: [phone] Exam Date: 02/03/20191950 FAX #: [phone] Reason: HEADACHE EXAMS: CPT CODE: [id number] CT HEAD/BRAIN W/O CONT 75197 <Continued> CC: Jomar Love MD Technologist:Kiersten Bro RT(R) CTDI: DLP: Trnscb Date/Time: 02/03/2019 (2006) [email or web address] Orig Print D/T: S: 02/03/2019 (2009) PAGE 2 Signed Report [QL] CMP [id number] 13:24:00* Test Item Value Reference Range Interpretation Comments GLUCOSE; Above High Threshold (test code = 1547-9) 207 mg/dl 65- 139 Non- fasting reference interval UREA NITROGEN (BUN) (test code = UREA NITROGEN (BUN)) 10 mg/dl 7-25 N CREATININE (test code = CREATININE) 0.84 mg/dl 0.50-0.99 N For patients >49 years of age, the reference limitfor Creatinine is approximately 13% higher for peopleidentified as -[place]. eGFR NON- (test code = eGFR NON-ROB N CYPRIOT) 71 {ML/MIN/1.7} > OR = 60 N eGFR (test code = eGFR ) 83 {ML/MIN/1.7} > OR = 60 N BUN/CREATININE RATIO (test code = BUN/CREATININE RATIO) NOT APPLICA BLE 6-22 SODIUM (test code = SODIUM) 145 mmol/L 135-146 N POTASSIUM (test code = POTASSIUM) 4.7 mmol/L 3.5-5.3 N CHLORIDE (test code = CHLORIDE) 105 mmol/L 98-110 N CARBON DIOXIDE (test code = CARBON DIOXIDE) 31 mmol/L 20-32 N CALCIUM (test code = CALCIUM) 8.9 mg/dl 8.6-10.4 N PROTEIN, TOTAL (test code = PROTEIN, TOTAL) 6.5 g/dl 6.1-8.1 N ALBUMIN (test code = ALBUMIN) 3.4 g/dl 3.6-5.1 GLOBULIN (test code = GLOBULIN) 3.1 {G/DL CALC} 1.9-3.7 N ALBUMIN/GLOBULIN RATIO (test code = ALBUMIN/GLOBULIN RATIO) 1.1 {CALC} 1.0-2.5 N BILIRUBIN, TOTAL; Normal (test code = 91285-4) 0.5 mg/dl 0.2-1.2 N ALKALINE PHSPHATASE (test code = ALKALINE PHSPHATASE) 108 u/l 33-130 N AST; Normal (test code = 1916-6) 22 u/l 10-35 N ALT; Normal (test code = 1742-6) 13 u/l 6-29 N [facility]] CBC (INCLUDES DIFF/PLT)2018-08-20 13:24:00* Test Item Value Reference Range Interpretation Comments WHITE BLOOD CELL COUNT (test code = WHITE BLOOD CELL COUNT) 9.0 {Thousand/u} 3.8-10.8 N RED BLOOD CELL COUNT (test code = RED BLOOD CELL COUNT) 4.56 {Million/uL} 3.80-5.10 N HEMAGLOBIN; Normal (test code = 50971-6) 12.7 g/dl 11.7-15.5 N HEMATOCRIT; Normal (test code = 4544-3) 39.4 % 35.0-45.0 N MCV; Normal (test code = 787-2) 86.4 fL 80.0-100.0 N MCHC; Normal (test code = 87407-7) 32.2 g/dl 32.0-36.0 N RDW; Normal (test code = 788-0) 13.3 % 11.0-15.0 N PLATELET COUNT; Normal (test code = 777-3) 261 {Thousand/u} 140-400 N MPV; Normal (test code = 43674-8) 9.6 fL 7.5-12.5 N ABSOLUTE NEUTROPHILS (test code = ABSOLUTE NEUTROPHILS) 5598 {cells/uL} 4222-2552 N ABSOLUTE LYMPHOCYTES (test code = ABSOLUTE LYMPHOCYTES) 2520 {cells/uL} 850-3900 N ABSOLUTE MONOCYTES (test code = ABSOLUTE MONOCYTES) 702 {cells/uL} 200-950 N ABSOLUTE EOSINOPHILS (test code = ABSOLUTE EOSINOPHILS) 126 {cells/ uL} 15-500 N ABSOLUTE BASOPHILS (test code = ABSOLUTE BASOPHILS) 54 {cells/uL} 0 -200 N NEUTROPHILS (test code = NEUTROPHILS) 62.2 % N LYMPHOCYTES (test code = LYMPHOCYTES) 28.0 % N MONOCYTES; Normal (test code = 18666-1) 7.8 % N EOSINOPHILS; Normal (test code = 64070-8) 1.4 % N BASOPHILS; Normal (test code = 44218-2) 0.6 % N [facility] DXA DUAL [id number] 17:20:00 [place] [address] Patient Name: LAURA KNIGHT MR #: [id number] : 1950 Age/Sex: 67/F Req #: [id number] Adm Physician: Ordered by: EDITH GRIMALDO MD Report #: [id number] Location: [facility] Room/Bed: Procedure: [id number] DX/B ONE DXA DUAL ENERGY Exam Date: Exam Time: REPORT STATUS: Signed Exam: Bone minera l density study. History: ANNUAL PHYSICAL EXAM / BONE LOSS Comparis on: None similar prior comparison available Discussion: Evaluation of t he left hip and lumbar spine was performed. The study is technically adequate . The patient's fracture risk is compared to an age-matched control. The pat ient denies prior surgery/fracture of the spine, hips or forearm. Left hip femoral neck bone mineral density: 0.6 g/cm2, T-score is -2.4, Z-score is -0. 7. Left hip total bone mineral density: 0.8 g/cm2, T-score is -1, Z-score is 0.4. Lumbar spine total bone mineral density: 0.8 g/cm2, T-score is -1.9, Z-score is 0.1. Impression: 1. Bone mineralization by WHO Classifica tion is low bone mass/osteopenia, the fracture risk is increased. 2. The FR AX 10-year probability of major osteoporotic fracture is 11% and hip fracture is 2.1%. These probabilities assume the patient is untreated. Signed by: Tessie Cunningham D.O., M.M.M. on 05/01/2018 5:22 PM Dictated By: ROHINI Gillespie DO 21 Transcribed By: CHERRY on 05/01/181721 COPY TO: EDITH GRIMALDO MD MAMMOGRAPHY DIGITAL SCR [id number] 15:26:00 [place] [address] Patient Name: LAURA KNIGHT MR #: [id number] : 1950 Age/Sex: 67/F Req #: [id number] Adm Physician: Ordered by: EDITH GRIMALDO MD Report #: [id number] Location: MAMMO Room/Bed: Procedure: [id number] MG/M AMMOGRAPHY DIGITAL SCR BILAT Exam Date: 05/01/18 Exa m Time: 1100 REPORT STATUS: Signed #[id number] - MGSCRBIL #BILATERAL DIGITAL SCREENING MAMMOGRAM WITH CA CLINICAL: Routine screening. Comparison is made to exams d ated: 03/07/2015 mammogram and 02/11/2013 mammogram - [facility]. Current study contains 7 films. There are scattered fibroglandu lar elements in both breasts. Current study was also evaluated with a Comput er Aided Detection (CAD) system. There are benign calcifications in both scott asts. There also are benign intramammary nodes in both breasts. No signi ficant masses, calcifications, or other findings are seen in either breast. There has been no significant interval change. IMPRESSION: BENIGN There i s no mammographic evidence of malignancy. A 1 year screening mammogram is recom mended. The patient will be notified by letter of the results. Royal peace/ghulam:05/20/2018 08:25:04 Imaging Techn ologist: Kirstie Mejias RT(R)(M), [facility] letter se nt: Compared to Prior B9 Mammogram BI-RADS: 2 Benign Dictated By: MICHELLE HOWE DO 4 Transcr ibed By: GHULAM on 05/20/18824 COPY TO: EDITH GRIMALDO MD CHEST 2 [id number] 12:21:00 [place] [address] Patient Name: LAURA KNIGHT MR #: [id number] : 1950 Age/Sex: 67/F Req #: [id number] Adm Physician: Ordered by: EDITH GRIMALDO MD Report #: [id number] Location: MAMMO Room/Bed: Procedure: [id number] DX/C HEST 2 VIEWS Exam Date: Exam Time: REPORT STATUS: Signed EXAMINATION: CHEST 2 VIE WS INDICATION: Chest pain. Bone loss. ANNUAL PHYSICAL EXAM / BONE LOSS COMPARISON: None FINDINGS: TUBES and LINES: None. LUNGS: Lungs are well inflated. Lungs are clear. There is no evidence o f pneumonia or pulmonary edema. PLEURA: No pleural effusion or pneumotho rax. HEART AND MEDIASTINUM: The cardiomediastinal silhouette is unremarkab le. BONES AND SOFT TISSUES: No acute osseous lesion. Soft tissues are unremarkable. UPPER ABDOMEN: No free air under the diaphragm. I MPRESSION: No acute thoracic abnormality. Signed by: Dr. Yady Abernathy M.D. on 05/01/2018 12:22 PM Dictated By: YADY ABERNATHY MD, MD [facility] Signed By: YADY ABERNATHY MD, MD on 05/01/18 122 Transcribed By: CHERRY on 05/01/18 1222 COPY TO: EDITH GRIMALDO MD US RENAL RETROPERITONEAL COMP [place] [address] Patient Name: LAURA KNIGHT MR #: [id number] : 1950 Age/Sex: 66/F Req #: [id number] Adm Physician: Ordered by: EMMA JOAQUIN MD Report #: [id number] Location: Room/Bed: Procedure: [id number] US/US RENAL RETROPERITONEAL CO MP Exam Date: 09/08/17 Exam Time: 1130 REPORT STATUS: Signed PROCEDURE: US RETROPERITONEAL ( KIDNEY ). COMPARISON: No ne. INDICATIONS: CKD TECHNIQUE: Martini scale and color Doppler ultrasound kidneys FINDINGS: Right: 11.5 x 4.7 x 2.4 cm. Cortical thickness 1.6 cm. Left: 10.4 x 5 x 4.1 cm. Cortical thickness 1.4 cm. Both kidneys de monstrate normal parenchymal echogenicity. No conspicuous cyst, stone or mass . Ureteral jets are not identified, but there is no evidence of obstruction. Survey views of the urinary bladder are normal. Prevoid bladder volume: 114 mL Post void bladder volume: Zero CONCLUSION: Normal renal ultrasound. Dictated by: Hanny Cm M.D. on 09/08/2017 at 12:45 Electronically approved by: Hanny Cm M.D. on 09/08/2017 at 12:45 Dictated By: HANNY CM MD 1245 Transcribed By: CASSIE on 09/08/17 1245 COPY TO: EMMA JOAQUIN MD US PELVIC (NON OB) BARR OR F/U [place] [address] Patient Name: LAURA KNIGHT MR #: [id number] : 1950 Age/Sex: 66/F Req #: [id number] Adm Physician: Ordered by: EMMA JOAQUIN MD Report #: [id number] Location: Room/Bed: Procedure: US/US PELVIC (NON OB) BARR OR F /U Exam Date: 09/08/17 Exam Time: 1130 REPORT STATUS: Signed PROCEDURE: URINARY BLADDER ULTRASOUND COMPARISON: None. INDICATIONS: CKD TECHNIQUE: Martini scale color Doppler Findings: Survey views of the urinary bladder are unremarkable. Ureteral jets are not i dentified, but there is no secondary evidence of ureteral obstruction. Prevoid bladder volume: 114 mL Post void volume: Zero CONCLUSION: N ormal urinary bladder ultrasound. Dictated by: Hanny cisneros M.D. on 09/08/2017 at 12:47 Electronically approved by: Hanny Cm M.D. on 09/08/2017 at 12:47 Dictated By: HANNY Espinosa MD 1247 Transcribed By: CASSIE on 09/08/17 1247 COPY TO: EMMA JOAQUIN MD
--- OUTSIDE RECORDS SUMMARY | 2019-08-23 12:37 | XMS REPORT | Summary of Care ---
Author MIRIAN Coleman M.A. Organization Unknown Address Unknown Phone Unavailable Care Team Providers Care Art Sales Consultant Name Role Phone MCKENZIE Carcamo, JORGE Unavailable Unavailable RE JARAMILLO, EDITH BURGER Unavailable Unavailable Lila Wilson MD Unavailable Unavailable JANETH GARCIA DO Unavailable Unavailable JORGE RINCON MD Unavailable Unavailable Unavailable Unavailable Functional Status Name Dates Details Functional status health issues are not documented Status: Name Dates Details Cognitive status health issues are not d ocumented Status: Problems Name Dates Details Morbid obesity (278.01, E66.01) Status: Active Diabetes mellitus (250.00, E11.9) Status: Active Edema of lower extremity (782.3, R60.0) Status: Active Chest pain (786.50, R07.9) Status: Active Essential (primary) hypertension (401.9, I10) Status: Active Hyperlipidemia (272.4, E78.5) Status: Active Palpitations (785.1, R00.2) Status: Active SOB (shortness of breath) (786.05, R06.0 2) Status: Active Abnormal findings on diagnostic imaging of heart and coronary circulation (794.39, R93.1) Status: Active Chest tightness or pressure (786.59, R07 .89) Status: Active 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 8, E46) Status: Active GERD (gastroesophageal reflux disease) ( 530.81, K21.9) Status: Active COPD (chronic obstructive pulmonary dise ase) (496, J44.9) Status: Active Bipolar disorder, mixed (296.60, F31.60) Status: Active Type II diabetes mellitus (250.00, E11.9 ) Status: Active Medications Name Dates Details Simvastatin [...] MG Oral Tablet * Refills: 0 Active Atenolol 50 MG Oral Tablet * Refills: 0 Active B-12 TABS * Refills: 0 Active Biotin TABS * Refills: 0 Active Calcium TABS * Refills: 0 Active Centrum Silver TABS * Refills: 0 Active Citalopram Hydrobromide 40 MG Oral Tablet * Refills: 0 Active clonazePAM 2 MG Oral Tablet * Refills: 0 Active Doxepin HCl - 50 MG Oral Capsule * Refills: 0 Active Furosemide 80 MG Oral Tablet * Refills: 0 Active glipiZIDE ER 5 MG Oral Tablet Extended Release 24 Hour * Refills: 0 Active Potassium Chloride ER 10 MEQ Oral Tablet Extended Release * Refills: 0 Active SEROquel 200 MG Oral Tablet * Refills: 0 Active Simvastatin 40 MG Oral Tablet * Refills: 0 Active Trelegy Ellipta 100-62.5-25 MCG/INH Inhalation Aerosol Powder Breath Activated * Refills: 0 Active Zafirlukast 20 MG Oral Tablet * Refills: 0 Active Creon 60277 UNIT Oral Capsule Delayed Release Particles * Refills: 0 Active Pancrelipase TABS * Refills: 0 Active Meloxicam TABS * Refills: 0 Active RABEprazole Sodium 20 MG Oral Tablet Delayed Release * Refills: 0 Active glipiZIDE 5 MG Oral Tablet * Refills: 0 Active methylPREDNISolone 4 MG Oral Tablet * Refills: 0 Active Omeprazole 40 MG Oral Capsule Delayed Release * Refills: 0 Active hydroCHLOROthiazide 12.5 MG Oral Tablet * Refills: 0 Active Iron TABS * Refills: 0 Active Atenolol 50 MG Oral Tablet * Refills: 0 Active Simvastatin TABS * Refills: 0 Active Zafirlukast 20 MG Oral Tablet * Refills: 0 Active clonazePAM 2 MG Oral Tablet * Refills: 0 Active SEROquel TABS * Refills: 0 Active Allergies and Adverse Reactions Name Dates Details codeine (Allergy) Status: Active Codeine Derivatives (Allergy) Status: Ac tive Past Medical History Name Dates Details History of anxiety (V11.8, Z86.59) Status: Resolved History of Arthritis of knee (716.96, M1 7.10) Status: Resolved History of asthma (V12.69, Z87.09) Status: Resolved History of Bipolar 1 disorder (296.7, F3 1.9) Status: Resolved History of cardiac arrhythmia (V12.59, Z 86.79) Status: Resolved History of depression (V11.8, Z86.59) Status: Resolved History of Diabetes mellitus (250.00, E1 1.9) Status: Resolved History of esophageal reflux (V12.79, Z8 7.19) Status: Resolved History of essential hypertension (V12.5 9, Z86.79) Status: Resolved History of gastroesophageal reflux (GERD ) (V12.79, Z87.19) Status: Resolved History of Gastroparesis (536.3, K31.84) Status: Resolved History of high cholesterol (V12.29, Z86 .39) Status: Resolved History of hyperlipidemia (V12.29, Z86.3 9) Status: Resolved History of hypothyroidism (V12.29, Z86.3 9) Status: Resolved History of Migraines (346.90, G43.909) Status: Resolved History of Obesity hypoventilation syndr ome (278.03, E66.2) Status: Resolved Procedures Procedure Dates Details History of Cholecystectomy Completed History of Knee Arthroscopy (Therapeutic) Completed History of Cervical Vertebral Fusion Com pleted History of Lumbar Vertebral Fusion Compl eted History of Ostectomy Calcaneus For Spur Completed History of Appendectomy Completed History of Hysterectomy Completed Immunization Name Dates Details Immunizations not documented Family History Name Dates Details Family history of Stroke Syndrome (V17.1 ) Status: Active Name Dates Details Family history of Cancer Status: Active Social History Name Dates Details - Status: Name Dates Details Ex-smoker (finding) Vital Signs Date Test Result Details No Known Vitals to report Results Date Description Value Details Results not documented Plan of Care Name Dates Details Planned Observations Planned Goals not documented Planned Encounters Appointment; JORGE RINCON M.D. On: 16-Aug-2019 14:40 Interventions Provided Discussion/Summary* PLAN: * Ms. Mirian Eduardo is a 68 year old female h/o HTN, HLD, DM, asthma, morbid obesity who presents for a follow up. * 1. HTN: well controlled * -continue atenolol 50 daily * 2. HLD * -continue simvastatin 40 * 3. Reported CKD stage 2 (per patient): Cr normal 0.84 in 08/2018 * -seen by renal on lasix 80 daily * 4. Asthma * -on multiple inhalers * 5. CAD evaluation * -cardiac cath done 08/2018 for abnormal PET; negative for CAD * -continue risk factor modification * 6. Chronic fatigue * -has BALJIT but report she cannot tolerate cpap * -labs per pcp next week * 7. Morbid obesity * -discussed lifestyle modification * -bariatric surgery referral for discussion * 8. Chronic LE edema * -advised compression stockings but she does not like them * -on lasix 80 po daily * -will consider CVI evaluation at next visit * RTC 6 mo Instructions Name Dates Details Instructions not documented Encounters Appointment; SURESH EAGN M.D. Encounter Diagnosis: Problem not documented On: 14-Jul-2018 13:30 Appointment; OLGA DOUGLAS Encounter Diagnosis: Problem not documented On: 21-Jul-2018 13:00 Appointment; SURESH EGAN M.D. Encounter Diagnosis: Problem not documented On: 13-Aug-2018 11:10 Appointment; SURESH EGAN M.D. Encounter Diagnosis: Problem not documented On: 02-Sep-2018 10:40 Appointment; JORGE RINCON M.D. Encounter Diagnosis: Problem not documented On: 15-Feb-2019 13:00 Appointment; JANETH GARCIA D.O. Encounter Diagnosis: Problem not documented On: 01-Mar-2019 13:30 Appointment; JANETH GARCIA D.O. Encounter Diagnosis: Problem not documented On: 05-Apr-2019 14:15 Appointment; JORGE RINCON M.D. Encounter Diagnosis: Problem not documented On: 16-Aug-2019 14:40
--- OUTSIDE RECORDS SUMMARY | 2019-08-23 12:37 | XMS REPORT | Summary of Care ---
Author Author LAURA GARCIA D.O. Organization Unknown Address Unknown Phone Unavailable Care Team Providers Care Hydroblaster Name Role Phone JANETH GARCIA D.O. 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 8, [...] Oral Tablet * Refills: 0 Active Creon 83919 UNIT Oral Capsule Delayed Release Particles * [...] E66.2) Status: Resolved Procedures Procedure Dates Details [[facility]] CBC (INCLUDES DIFF/PLT) Date: 01-Mar-2019 [[facility]] CMP W/EGFR Date: 01-Mar-2019 [[facility]] FERRITIN Date: 01-Mar-2019 [[facility]] FOLATE, SERUM Date: 01-Mar-2019 [[facility]] HEMOGLOBIN A1c Date: 01-Mar-2019 [[facility]] IRON AND TOTAL IRON BINDING CAPACITY Date: 01-Mar-2019 [[facility]] LIPID PANEL Date: 01-Mar-2019 [[facility]] PTH, INTACT (WITHOUT CALCIUM) Date: 01-Mar-2019 [[facility]] TSH, 3RD GENERATION W/REFLEX TO FT4 Date: 01-Mar-2019 [[facility]] VITAMIN A (RETINOL) Date: 01-Mar-2019 [[facility]] VITAMIN B1, WHOLE BLOOD Date: 01-Mar-2019 [[facility]] VITAMIN B12 Date: 01-Mar-2019 [[facility]] VITAMIN D, 25-HYDROXY, LC/MS/MS Date: 01-Mar-2019 [[facility]] VITAMIN E (TOCOPHEROL) Date: 01-Mar-2019 History of Cholecystectomy Completed History of Knee [...] RINCON M.D. On: 16-Aug-2019 14:40 Interventions Provided Labs/Procedures/Imaging* [[facility]] CBC (INCLUDES DIFF/PLT); To Be Done: 01 Mar 2019 * [[facility]] CMP W/EGFR; To Be Done: 01 Mar 2019 * [[facility]] FERRITIN; To Be Done: 01 Mar 2019 * [[facility]] FOLATE, SERUM; To Be Done: 01 Mar 2019 * [[facility]] HEMOGLOBIN A1c; To Be Done: 01 Mar 2019 * [[facility]] IRON AND TOTAL IRON BINDING CAPACITY; To Be Done: 01 Mar 2019 * [[facility]] LIPID PANEL; To Be Done: 01 Mar 2019 * [[facility]] PTH, INTACT (WITHOUT CALCIUM); To Be Done: 01 Mar 2019 * [[facility]] TSH, 3RD GENERATION W/REFLEX TO FT4; To Be Done: 01 Mar 2019 * [[facility]] VITAMIN A (RETINOL); To Be Done: 01 Mar 2019 * [[facility]] VITAMIN B1, WHOLE BLOOD; To Be Done: 01 Mar 2019 * [[facility]] VITAMIN B12; To Be Done: 01 Mar 2019 * [[facility]] VITAMIN D, 25-HYDROXY, LC/MS/MS; To Be Done: 01 Mar 2019 * [[facility]] VITAMIN E (TOCOPHEROL); To Be Done: 01 Mar 2019 Plan* LAURA KNIGHT is a 68 year old female with severe morbid obesity presenting today to be evaluated for possible surgery. She has a central obesity with a duration greater than 5 years and meets NIH criteria for bariatric surgery. Prior to our consult * Fn * was directed to view our educational webinar regarding the different types of bariatric surgery, including Laparoscopic Adjustment Gastric Band, Sleeve Gastrectomy, Tan-en-Y Gastric Bypass, Duodenal Switch and Revisional Bariatric procedures. In addition to the webinar, we had an extensive discussion about the various surgical options and which surgery would be the best option for * him/her * . 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 * Mr/Ms Carreon * has been instructed to begin making healthy nutritional changes, increase her activity as tolerated and modify here eating behaviors (not skipping meals, eating slowly, etc.) as part of * his/her * pre-op nutrition program. * He/She * has been provided with educational materials as preparation for bariatric surgery. The following goals have been established and agreed upon: * -- Follow recommended nutrition guidelines to develop a healthy eating routine * -- Prepare well-balanced meals focusing on high protein / high fiber foods, eliminate high calorie / carbonated beverages * -- Establish a consistent daily eating routine, drink at least 64 ounces of water daily, make healthy food / beverage choices * -- When dining out, eat slowly and chew food well and begin a consistent exercise routine and increase ph-- When dining out, eat slowly and chew food well and begin a consistent exercise routine and increase physical activity as tolerated. * The risks and benefits of the procedure were extensively discussed with particular attention placed on the risk of anastomotic or staple line leak, risk of a pulmonary embolism, risk of bleeding risk of pulmonary complications and the need for lifelong vitamin supplementation following surgery. * We discussed that this qualifies as a major elective operation. * Fn Ln * understands that bariatric surgery is only a tool to help achieve a healthier lifestyle. * Fn Ln * will need to undergo an extensive pre-operative workup to include nutritional education and psychological clearance. * We will obtain pre-operative labs to include a CBC, Comprehensive panel, Coagulopathy panel and Urinalysis. * We will obtain EGD * Mr/Ms Fn Ln * will proceed with a: RoboticLaparoscopic Tan-en-Y Bypass * Require cardiology and pulmonology clearance. * Psychiatric and nutritional evaluation Instructions Name Dates Details Instructions not documented [...]
[2019-08-23 13:16] LABS: BASOPHILS % 0.2 % (0.0-1.0); EOSINOPHILS % 0.4 % (0.0-6.0); HEMATOCRIT 42.2 % (34.2-44.1); LYMPHOCYTES # (AUTO) 1.7 (1.0-3.2); LYMPHOCYTES % 18.9 % (18.0-39.1); MEAN CORPUSCULAR HEMOGLOBIN 29.7 pg (28-32); MEAN CORPUSCULAR HGB CONC 33.2 g/dL (31-35); MEAN CORPUSCULAR VOLUME 89.4 fL (81-99); MONOCYTES # (AUTO) 0.7 (0.2-0.8); MONOCYTES % 7.2 % (4.4-11.3); NEUTROPHILS # (AUTO) 6.6 (2.1-6.9); PLATELET COUNT 299 x10e3/uL (140-360); RED BLOOD COUNT 4.72 x10e6/uL (3.6-5.1); RED CELL DISTRIBUTION WIDTH 12.9 % (11.7-14.4)
[2019-08-23 13:36] LABS: ALANINE AMINOTRANSFERASE 9 IU/L (0-55); ALBUMIN 2.8 g/dL (3.5-5.0); ALBUMIN/GLOBULIN RATIO 0.6 (0.8-2.0); ALKALINE PHOSPHATASE 75 IU/L (40-150); ANION GAP 16.3 mmol/L (8-16); BLOOD UREA NITROGEN 5 mg/dL (7-26); BUN/CREATININE RATIO 8 (6-25); CALCIUM 9.5 mg/dL (8.4-10.2); CARBON DIOXIDE 24 mmol/L (22-29); CHLORIDE 102 mmol/L (98-107); CREATININE, SERUM 0.63 mg/dL (0.57-1.11); EST GLOMERULAR FILTRATION RATE > 60 ML/MIN (60-); GLUCOSE 147 mg/dL (74-118); POTASSIUM 3.3 mmol/L (3.5-5.1); SODIUM 139 mmol/L (136-145)
[2019-08-23] MEDS ORDERED: SODIUM CHLORIDE 0.9% 50ML 50 ML ONE (15:20)
[2019-08-23] MEDS ORDERED: IOPAMIDOL 370 MG/ML 200 ML INFUS..BTL INJ ONE (15:20)
--- NOTE | 2019-08-23 15:26 | NUR ---
per md orders rn attempted to start rios catheter in and noticed pt has redness/sores to entire vagina/groin area and has redness/sores to back; unable to start rios iron care performed by ebonie and garret put into place by rn
--- NOTE | 2019-08-23 15:31 | Diagnostic Imaging Report ---
CT of the abdomen and pelvis, with contrast, 08/23/2019. History: Lower back pain. Comparison: None available. Technique: Multidetector CT scanning of the abdomen and pelvis was performed from the level of the lung bases to the inferior pubic rami after intravenous administration of contrast. Coronal and sagittal multiplanar reformations were obtained. RADIATION DOSE: Total DLP: 957 mGy*cm Dose modulation, iterative reconstruction, and/or weight based adjustment of the mA/kV was utilized to reduce the radiation dose to as low as reasonably achievable. Discussion: LUNG BASES: There is bibasilar atelectasis. ABDOMEN: Cholecystectomy clips are present. The liver, biliary tree, spleen, pancreas, adrenal glands, and kidneys are normal. The hepatic vein, portal vein, and splenic vein are patent. The abdominal aorta is calcified but within normal limits for size. Evaluation of bowel is limited without oral contrast. There is no bowel dilatation. There is no evidence of adenopathy or free fluid. PELVIS: The bladder is unremarkable. The uterus is absent. Ovaries are atrophic. Calcified phleboliths are present bilaterally. There is no evidence of free fluid or adenopathy. BONES AND SOFT TISSUES: Degenerative and postoperative changes are present within the lumbar spine without evidence of lytic or sclerotic lesion. Old right inferior pubic ramus fracture is noted. IMPRESSION: Status post cholecystectomy, hysterectomy, and lumbosacral spinal fusion. Otherwise unremarkable CT of the abdomen and pelvis. Signed by: Ronny Diallo on 08/23/2019 3:28 PM
--- NOTE | 2019-08-23 15:52 | Emergency Department Note ---
History of Present Illnes History of Present Illness Chief Complaint: General Medicine Complaints History of Present Illness This is a 68 year old female presents to the ED for acute on chronic back pain with multiple complaints. States that since she an injury to the LEFT UE in Feb 2019, she has been bed-ridden and with difficulty in caring for self. Complains of groin rash and b/l knee pain non-traumatic. . 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 Any updates have been documented here. Past Medical History Recent Fever: No Clinical Suspicion of Infectio: No Past Medical History: Hypertension, Diabetes Other Medical History: HIGH CHOLESTEROL, ANXIETY. Other Surgery: CERVICAL FUSION, LOW BACK FUSION, ARTHROSCOPIC SX TO BOTH KNEES, HEEL SPURS. Social History Smoking Cessation: Never Smoker Alcohol Use: None Any Illegal Drug Use: No Other Last Tetanus: UNK Review of Systems Review of Systems Constitutional: no symptoms EENTM: no symptoms Cardiovascular: no symptoms Respiratory: no symptoms Gastrointestinal: no symptoms Genitourinary: no symptoms Musculoskeletal: back pain Neurological: weakness Psychological: no symptoms Endocrine: no symptoms Hematological/Lymphatic: no symptoms Review of other systems All other systems reviewed and negative. Physical Exam Related Data Allergies: Coded Allergies: codeine (Verified Allergy, Mild, 06/08/08) Physical Exam CONSTITUTIONAL Constitutional: well-developed, well-nourished, morbidly obese HENT HENT: normocephalic, atraumatic, oropharynx clear/moist, nose normal HENT L/R: left ext ear normal, right ext ear normal EYES Eyes: PERRL, conjunctivae normal NECK Neck: ROM normal PULMONARY Pulmonary: effort normal, breath sounds normal CARDIOVASCULAR Cardiovascular: regular rhythm, heart sounds normal, capillary refill normal, normal rate GASTROINTESTINAL Abdominal: soft, nontender, bowel sounds normal GENITOURINARY Genitourinary: other (erythema perineal region with flaking of the region. dry) SKIN Skin: erythema, other (diffuse pre-ulcerative lesion lower lumbar region and perineal region) MUSCULOSKELETAL Musculoskeletal: ROM normal NEUROLOGICAL Neurological: alert, oriented x 3, no gross motor or sensory deficits PSYCHOLOGICAL Psychological: mood/affect normal, judgement normal Results Laboratory Lab results reviewed: Yes Laboratory comments CBC and CMP wnl UA normal CT reviewed Imaging Imaging results reviewed: Yes Impressions [place] [id number] Patient Name: LAURA KNIGHT MR #: [id number] : 1950 Age/Sex: 68/F Req #: [id number] Adm Physician: Ordered by: RONNY CORRAL DO Report #: [id number] Location: ER Room/Bed: Procedure: [id number] CT/CT ABDOMEN/PELVIS W Exam Date: 08/23/19 Exam Time: 1410 REPORT STATUS: Signed CT of the abdomen and pelvis, with contrast, 08/23/2019. History: Lower back pain. Comparison: None available. Technique: Multidetector CT scanning of the abdomen and pelvis was performed from the level of the lung bases to the inferior pubic rami after intravenous administration of contrast. Coronal and sagittal multiplanar reformations were obtained. RADIATION DOSE: Total DLP: 957 mGy*cm Dose modulation, iterative reconstruction, and/or weight based adjustment of the mA/kV was utilized to reduce the radiation dose to as low as reasonably achievable. Discussion: LUNG BASES: There is bibasilar atelectasis. ABDOMEN: Cholecystectomy clips are present. The liver, biliary tree, spleen, pancreas, adrenal glands, and kidneys are normal. The hepatic vein, portal vein, and splenic vein are patent. The abdominal aorta is calcified but within normal limits for size. Evaluation of bowel is limited without oral contrast. There is no bowel dilatation. There is no evidence of adenopathy or free fluid. PELVIS: The bladder is unremarkable. The uterus is absent. Ovaries are atrophic. Calcified phleboliths are present bilaterally. There is no evidence of free fluid or adenopathy. BONES AND SOFT TISSUES: Degenerative and postoperative changes are present within the lumbar spine without evidence of lytic or sclerotic lesion. Old right inferior pubic ramus fracture is noted. IMPRESSION: Status post cholecystectomy, hysterectomy, and lumbosacral spinal fusion. Otherwise unremarkable CT of the abdomen and pelvis. Signed by: Ronny Diallo on 08/23/2019 3:28 PM Dictated By: RONNY DIALLO MD [id number] Transcribed By: CHERRY on 08/23/19 1528 COPY TO: RONNY CORRAL DO~ Assessment & Plan Assessment & Plan Problems: (1) Candidiasis of perineum (2) Failure to thrive (3) Back pain Assessment & Plan CT and labs reviewed with patient. Patient with pre-ulcerative lesions of the back and perineal region. Unable to care for self; plan to consult social media intern and admit for candidal cellulitis. Patient to admitted to the service of Dr Memo Wilson Disposition: ADMITTED Home Meds Reported Medications Zafirlukast (ZAFIRLUKAST) 10 Mg Tablet, 10 MG PO DAILY 01/20/19 Tramadol Hcl (ULTRAM) 50 Mg Tablet, 50 MG PO BID PRN for Mild Pain (1-3) or Fever>100.8, TAB 01/20/19 Albuterol Sulf* (PROAIR HFA INHALER*) 8.5 Gm Inh, 2 PUMP INH QID 01/20/19 Omeprazole (OMEPRAZOLE) 40 Mg Capsule.dr, 40 MG PO DAILY 01/20/19 Naproxen (NAPROXEN) 250 Mg Tablet, 500 MG PO BID, TAB 01/20/19 Sitagliptin Phos/Metformin Hcl (JANUMET 50-1,000 MG TABLET) 1 Each Tablet, 1 TAB PO DAILY 01/20/19 Hydrocodone Bit/Acetaminophen (NORCO 5-325 TABLET) 1 Each Tablet, 1 EACH PO PRN, TAB 01/20/19 Gabapentin (GABAPENTIN) 100 Mg Capsule, 100 MG PO TID 01/20/19 Lipase/Protease/Amylase (Creon 36,000 Units Capsule) 1 Each Capsule., 2 CAP PO AC 01/20/19 Rabeprazole Sodium (ACIPHEX) 20 Mg Tablet.dr, 20 MG PO TID THERAPEUTIC INTERCHANGE WITH PROTONIX PER [facility] 01/20/19 Doxepin Hcl (DOXEPIN HCL) 50 Mg Capsule, 50 CAP PO HS 03/08/15 Clonazepam (CLONAZEPAM) 1 Mg Tablet, 2 MG PO HS, TAB 03/08/15 Citalopram Hydrobromide (CITALOPRAM HBR) 20 Mg Tablet, 40 MG PO HS, TAB 03/08/15 Simvastatin (SIMVASTATIN) 40 Mg Tablet, 80 MG PO 2100, #30 TAB 03/08/15 Atenolol (ATENOLOL) 50 Mg Tablet, 50 MG PO HS 03/08/15 [Glipizide] No Conflict Check, 5 MG PO DAILY 01/20/13 [Synthroid] No Conflict Check, 112 MCG PO DAILY 01/20/13 Medications in the ED Sodium Chloride 50 ml @ ud STK-MED ONCE .ROUTE ; Start 08/23/19 at 15:20; Stop 08/23/19 at 15:15; Status DC Iopamidol 74,000 mg STK-MED ONCE INJ ; Start 08/23/19 at 15:20; Stop 08/23/19 at 15:15; Status DC RONNY CORRAL DO August 23, 2019 12:43
[2019-08-23] MEDS: SODIUM CHLORIDE 0.9% 1000ML 1,000 ML IV SCH (16:25)
[2019-08-23] MEDS ORDERED: SODIUM CHLORIDE 0.9% 1000ML 1,000 ML ONE (16:27)
--- OUTSIDE RECORDS SUMMARY | 2019-08-23 16:36 | XMS REPORT ---
Author Author [facility] t Organization [facility] Address [address] [place] [address] Phone Unavailable Care Team Providers Care Mold Hoister Name Role Phone RONNY CORRAL Attphys Unavailable JORGE RINCON M.D. Attphys Unavailable JANETH GARCIA D.O. Attphys Unavailable TIM MERLOS M.D. Attphys Unavailable SURESH EGAN M.D. Attphys Unavailable SE, ECHO Attphys Unavailable RE, EDITH Attphys Unavailable MERSZEI, EMMA Attphys Unavailable Payers Payer Name Policy Type Policy Number Effective Date Expiration Date S ource Problems Condition Name Condition Details Condition Category Status Onset Date Resolution Date Last Treatment Date Treating Clinician Comments Source History of depression History of depression Problem Resolved [facility] History of Arthritis of knee History of Arthritis of knee Problem Re solved [facility] History of asthma History of asthma Problem Resolved [facility] History of Bipolar 1 disorder History of Bipolar 1 disorder Problem Resolved [facility] [facility] History of essential hypertension History of essential hypertens ion Problem Resolved [facility] Type II diabetes mellitus Type II diabetes mellitus Problem Active [facility] History of gastroesophageal reflux (GERD) History of g astroesophageal reflux (GERD) Problem Resolved [facility] History of Gastroparesis History of Gastroparesis Problem Resolved [facility] History of hypothyroidism History of hypothyroidism Problem Resolved [facility] History of Migraines History of Migraines Problem Resolved [facility] History of Obesity hypoventilation syndrome History of Obesity hypoventilation syndrome Problem Resolved [facility] Morbid obesity Morbid obesity Problem Active [facility] Edema of lower extremity Edema of lower extremity Problem Active [facility] Chest pain Chest pain Problem [facility] Essential (primary) hypertension Essential (primary) hypertensio n Problem Active [facility] Hyperlipidemia Hyperlipidemia Problem Active [facility] Palpitations Palpitations Problem Active [facility] SOB (shortness of breath) SOB (shortness of breath) Problem Active [facility] Abnormal findings on diagnostic imaging of heart and c oronary circulation Abnormal findings on diagnostic imaging of heart and coronary circulation Problem Active [facility] Chest tightness or pressure Chest tightness or pressure Problem Active [facility] 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 [facility] Other protein-calorie malnutrition Other protein-calorie malnutr ition Problem Active [facility] GERD (gastroesophageal reflux disease) GERD (gastroesophagea l reflux disease) Problem Active [facility] COPD (chronic obstructive pulmonary disease) COPD (chr onic obstructive pulmonary disease) Problem Active [facility] Bipolar disorder, mixed Bipolar disorder, mixed Problem Active [facility] Allergies, Adverse Reactions, Alerts Allergy Name Allergy Type Status Severity Reaction(s) Onset Date Inacti ve Date Treating Clinician Comments Source codeine DA Active [place] 2019-02-03 00:00:00 [facility] codeine DA Active [place] 2016-08-01 00:00:00 [facility] Codeine Derivatives Allergy to drug (finding) Active [facility] codeine Allergy to drug (finding) Active [facility] Family History Family Member Diagnosis Comments Start Date Stop Date Source Father Family history of Stroke Syndrome [facility] Brother Family history of Cancer [facility] Social History Smoking Status Start Date Stop Date Source Ex-smoker (finding) [facility] Medications Ordered Medication Name Filled Medication Name Start Date Stop Da te Current Medication? Ordering Clinician Indication Dosage Frequency Signature (SIG) Comments Components Source Potassium Chloride ER 10 MEQ Oral Capsule Extended Rel ease Potassium Chloride ER 10 MEQ Oral Capsule Extended Release 2015-07-06 00:00:00 Yes 1 QD TAKE 1 CAPSULE DAILY [facility] Doxepin HCl - 50 MG Oral Capsule Doxepin HCl - 50 MG Oral Ca psule 2015-07-06 00:00:00 Yes Q0.3333D TAKE 1 CAPSULE 3 TIMES VANDANA Rosa [facility] clonazePAM 2 MG Oral Tablet clonazePAM 2 MG Oral Tablet 2013-12-21 00:00:00 Yes TAKE 1 TABLET EVERY 12 HOURS NEEDED. [facility] SEROquel 200 MG Oral Tablet SEROquel 200 MG Oral Tablet 2013-12-21 00:00:00 Yes TAKE 2 TABLETS AT BEDTIME. [facility] Simvastatin 40 MG Oral Tablet Simvastatin 40 MG Oral Tablet Yes 1 QD TAKE 1 TABLET DAILY. [facility] glipiZIDE ER 5 MG Oral Tablet Extended Release 24 Hour glipiZIDE ER 5 MG Oral Tablet Extended Release 24 Hour Yes TAKE 2 TABLET DAILY. [facility] Citalopram Hydrobromide 40 MG Oral Tablet Citalopram H ydrobromide 40 MG Oral Tablet Yes 1 QD TAKE 1 TABLET DAILY. [facility] Calcium TABS Calcium TABS Yes 1 QD TAKE 1 TABLET DAILY. [facility] B-12 CAPS B-12 CAPS Yes qd [facility] Trelegy Ellipta 100-62.5-25 MCG/INH Inhalation Aerosol Powder Breath Activated Trelegy Ellipta 100-62.5-25 MCG/INH Inhalation Aerosol Powder Breath Activated Yes [facility] Furosemide 80 MG Oral Tablet Furosemide 80 MG Oral Tablet Yes [facility] Zafirlukast 20 MG Oral Tablet Zafirlukast 20 MG Oral Tablet Ye s [facility] Biotin TABS Biotin TABS Yes [facility] Centrum Silver TABS Centrum Silver TABS Yes [facility] Atenolol 50 MG Oral Tablet Atenolol 50 MG Oral Tablet Yes [facility] Atenolol 50 MG Oral Tablet Atenolol 50 MG Oral Tablet Yes [facility] B-12 TABS B-12 TABS Yes [facility] Biotin TABS Biotin TABS Yes [facility] Calcium TABS Calcium TABS Yes [facility] Centrum Silver TABS Centrum Silver TABS Yes [facility] Citalopram Hydrobromide 40 MG Oral Tablet Citalopram H ydrobromide 40 MG Oral Tablet Yes [facility] clonazePAM 2 MG Oral Tablet clonazePAM 2 MG Oral Tablet Yes [facility] Doxepin HCl - 50 MG Oral Capsule Doxepin HCl - 50 MG Oral Capsule Yes [facility] Furosemide 80 MG Oral Tablet Furosemide 80 MG Oral Tablet Yes [facility] glipiZIDE ER 5 MG Oral Tablet Extended Release 24 Hour glipiZIDE ER 5 MG Oral Tablet Extended Release 24 Hour Yes [facility] Potassium Chloride ER 10 MEQ Oral Tablet Extended Rele ase Potassium Chloride ER 10 MEQ Oral Tablet Extended Release Yes [facility] SEROquel 200 MG Oral Tablet SEROquel 200 MG Oral Tablet Yes [facility] Simvastatin 40 MG Oral Tablet Simvastatin 40 MG Oral Tablet Ye s [facility] Trelegy Ellipta 100-62.5-25 MCG/INH Inhalation Aerosol Powder Breath Activated Trelegy Ellipta 100-62.5-25 MCG/INH Inhalation Aerosol Powder Breath Activated Yes [facility] Zafirlukast 20 MG Oral Tablet Zafirlukast 20 MG Oral Tablet Ye s [facility] Creon [id number] UNIT Oral Capsule Delayed Release Particle s Creon [id number] UNIT Oral Capsule Delayed Release Particles Yes [facility] Pancrelipase TABS Pancrelipase TABS Yes [facility] Meloxicam TABS Meloxicam TABS Yes [facility] RABEprazole Sodium 20 MG Oral Tablet Delayed Release R ABEprazole Sodium 20 MG Oral Tablet Delayed Release Yes [facility] glipiZIDE 5 MG Oral Tablet glipiZIDE 5 MG Oral Tablet Yes [facility] methylPREDNISolone 4 MG Oral Tablet methylPREDNISolone 4 MG Oral Tabl et Yes [facility] Omeprazole 40 MG Oral Capsule Delayed Release Omeprazo le 40 MG Oral Capsule Delayed Release Yes [facility] hydroCHLOROthiazide 12.5 MG Oral Tablet hydroCHLOROthiazide 12.5 MG Oral Tablet Yes [facility] Iron TABS Iron TABS Yes [facility] Atenolol 50 MG Oral Tablet Atenolol 50 MG Oral Tablet Yes [facility] Simvastatin TABS Simvastatin TABS Yes [facility] Zafirlukast 20 MG Oral Tablet Zafirlukast 20 MG Oral Tablet Ye s [facility] clonazePAM 2 MG Oral Tablet clonazePAM 2 MG Oral Tablet Yes [facility] SEROquel TABS SEROquel TABS Yes [facility] Vital Signs Vital Name Observation Time Observation Value Comments Source BP Systolic 2019-03-01 13:36:00 148 mm[Hg] Location: RUE; Positi on: Sitting [facility] BP Diastolic 2019-03-01 13:36:00 79 mm[Hg] Location: RUE; Positi on: Sitting [facility] Height 2019-03-01 13:36:00 63 [in_us] [facility] Weight 2019-03-01 13:36:00 289.8 [lb_av] [facility] Body Mass Index Calculated 2019-03-01 13:36:00 51.34 kg/m2 [facility] Temperature 2019-03-01 13:36:00 98.2 [degF] Method: Oral [facility] Heart Rate 2019-03-01 13:36:00 75 /min Quality: Normal Unive [facility] BP Systolic 2019-02-15 13:53:00 108 mm[Hg] Location: LUE; Positi on: Sitting [facility] BP Diastolic 2019-02-15 13:53:00 73 mm[Hg] Location: LUE; Positi on: Sitting [facility] Height 2019-02-15 13:53:00 65 [in_us] [facility] Weight 2019-02-15 13:53:00 304 [lb_av] [facility] Body Mass Index Calculated 2019-02-15 13:53:00 50.59 kg/m2 [facility] Heart Rate 2019-02-15 13:53:00 73 /min Location: L Radial; Q uality: Normal [facility] BP Systolic 2018-08-13 11:07:00 129 mm[Hg] Location: LUE; Positi on: Sitting [facility] BP Diastolic 2018-08-13 11:07:00 82 mm[Hg] Location: LUE; Positi on: Sitting [facility] Height 2018-08-13 11:07:00 65 [in_us] [facility] Weight 2018-08-13 11:07:00 326 [lb_av] [facility] Body Mass Index Calculated 2018-08-13 11:07:00 54.25 kg/m2 [facility] Heart Rate 2018-08-13 11:07:00 78 /min [facility] BP Systolic 2018-07-14 14:29:00 112 mm[Hg] Location: RUE; Positi on: Sitting [facility] BP Diastolic 2018-07-14 14:29:00 84 mm[Hg] Location: RUE; Positi on: Sitting [facility] Height 2018-07-14 14:29:00 65 [in_us] [facility] Weight 2018-07-14 14:29:00 320 [lb_av] [facility] Body Mass Index Calculated 2018-07-14 14:29:00 53.25 kg/m2 [facility] Heart Rate 2018-07-14 14:29:00 83 /min [facility] Procedures Procedure Date / Time Performed Performing Clinician Sour e [QLH] CBC (INCLUDES DIFF/PLT) 2019-03-01 00:00:00 [facility] [QL] CMP W/EGFR 2019-03-01 00:00:00 [facility] [[facility]] FERRITIN 2019-03-01 00:00:00 [facility] [[facility]] FOLATE, SERUM 2019-03-01 00:00:00 [facility] [[facility]] HEMOGLOBIN A1c 2019-03-01 00:00:00 [facility] [QL] IRON AND TOTAL IRON BINDING CAPACITY 2019-03-01 00:00:00 [facility] [[facility]] LIPID PANEL 2019-03-01 00:00:00 [facility] [[facility]] PTH, INTACT (WITHOUT CALCIUM) 2019-03-01 00:00:00 [facility] [[facility]] TSH, 3RD GENERATION W/REFLEX TO FT4 2019-03-01 00:00:00 [facility] [[facility]] VITAMIN A (RETINOL) 2019-03-01 00:00:00 [facility] [[facility]] VITAMIN B1, WHOLE BLOOD 2019-03-01 00:00:00 [facility] [[facility]] VITAMIN B12 2019-03-01 00:00:00 [facility] [[facility]] VITAMIN D, 25-HYDROXY, LC/MS/MS 2019-03-01 00:00:00 [facility] [[facility]] VITAMIN E (TOCOPHEROL) 2019-03-01 00:00:00 [facility] Coronary Angiography 2018-08-14 00:00:00 [facility] [[facility]] CBC (INCLUDES DIFF/PLT) 2018-08-13 00:00:00 [facility] [QL] CMP W/EGFR 2018-08-13 00:00:00 [facility] [W] PET Stress Perfusion for Ischemia 2018-07-20 00:00:00 [facility] Echo (In Office) 2018-07-15 00:00:00 [facility] [W] PET Stress Perfusion for Ischemia 2018-07-15 00:00:00 [facility] History of Cholecystectomy Unive [facility] History of Knee Arthroscopy (Therapeutic) [facility] History of Cervical Vertebral Fusion [facility] History of Lumbar Vertebral Fusion [facility] History of Ostectomy Calcaneus For Spur [facility] History of Appendectomy [facility] History of Hysterectomy [facility] Plan of Care Planned Activity Planned Date Details Comments Source Diagnostic Test Pending 2018-08-14 00:00:00 Coronary Angiogr aphy [code = Coronary Angiography] [facility] Diagnostic Test Pending 2018-07-20 00:00:00 [W] PET Stress P erfusion for Ischemia [code = [W] PET Stress Perfusion for Ischemia] [facility] Diagnostic Test Pending 2018-07-15 00:00:00 [W] PET Stress P erfusion for Ischemia [code = [W] PET Stress Perfusion for Ischemia] [facility] Encounters Start Date/Time End Date/Time Encounter Type Admission Type Attendi [facility] Care Department Encounter ID Source 2019-08-16 14:40:00 2019-08-16 14:40:00 Appointment; JORGE RINCON M.D. TRANG, AMANDA, M.D. [facility] [id number] [facility] 2019-04-05 14:15:00 2019-04-05 14:15:00 Appointment; EDSON GARCIA D.O. ELLIOTT, EKATARINA, D.O. [facility] [id number] [facility] 2019-03-03 21:20:00 2019-03-03 21:20:00 Emergency E [facility] [id number] [facility] 2019-03-01 13:30:00 2019-03-01 13:30:00 Appointment; EDSON GARCIA D.O. ELLIOTT, EKATARINA, D.O. [facility] General Surgery [facility] [id number] [facility] 2019-02-15 13:00:00 2019-02-15 13:00:00 Appointment; JORGE RINCON M.D. TRANG, AMANDA, M.D. [facility] Center for Advanced Heart Failure - [facility] [id number] [facility] 2018-11-03 08:20:00 2018-11-03 08:20:00 Appointment; TIM MERLOS M.D. GEORGE, BENNET, M.D. [facility] Center for Advanced Heart Failure [facility] [id number] [facility] 2018-09-18 10:30:00 2018-09-18 10:30:00 Appointment; SURESH EGAN M.D. NASCIMBENE, ANGELO, M.D. [facility] Center for Advanced Hea rt Failure - [facility] [id number] [facility] 2018-09-16 14:00:00 2018-09-16 14:00:00 Appointment; SURESH EGAN M.D. NASCIMBENE, ANGELO, M.D. [facility] - [facility] [id number] [facility] 2018-09-02 10:40:00 2018-09-02 10:40:00 Appointment; SURESH EGAN M.D. NASCIMBENE, ANGELO, M.D. [facility] [id number] [facility] 2018-08-28 11:43:00 2018-08-28 11:43:00 Outpatient [facility] CAR [id number] [facility] 2018-08-13 11:10:00 2018-08-13 11:10:00 Appointment; SURESH EGAN M.D. NASCIMBENE, ANGELO, M.D. [facility] Cardiology at [facility] 52 [id number] [facility] 2018-07-21 13:00:00 2018-07-21 13:00:00 Appointment; SE, ECHO SE, ECHO [facility] [id number] [facility] 2018-07-15 14:30:00 2018-07-15 14:30:00 Appointment; SURESH EGAN M.D. NASCIMBENE, ANGELO, M.D. [facility] Cardiology at [facility] [id number] [facility] 2018-07-14 13:30:00 2018-07-14 13:30:00 Appointment; SURESH EGAN M.D. NASCIMBENE, ANGELO, M.D. [facility] Cardiology at [place] [address] [id number] [facility] Results Test Description Test Time Test Comments Results Result Comments Source CT ABDOMEN/PELVIS W 2019-08-23 15:21:00 [facility] [address] [address] Patient Name: LAURA KNIGHT MR #: [id number] : 1950 Age/Sex: 68/F Req #: [id number] Adm Physician: Ordered by: RONNY CORRAL DO Report #: [id number] Location: ER Room/Bed: Procedure: [id number] CT/CT ABDOMEN/PELVIS W Exam Date: 08/23/19 Exam Time: 1410 REPORT STATUS: Signed CT of the abdomen and pelvis, with contrast, 08/23/2019. History: Lower back pain. Comparison: None available. Technique: Multidetector CT scanning of the abdomen and pelvis was performed from the level of the lung bases to the inferior pubic rami after intravenous administration of contrast. Coronal and sagittal multiplanar reformations were obtained. RADIATION DOSE: Total DLP: 957 mGy*cm Dose modulation, iterative reconstruction, and/or weight based adjustment of the mA/kV was utilized to reduce the radiation dose to as low as reasonably achievable. Discussion: LUNG BASES: There is bibasilar atelectasis. ABDOMEN: Cholecystectomy clips are present. The liver, biliary tree, spleen, pancreas, adrenal glands, and kidneys are normal. The hepatic vein, portal vein, and splenic vein are patent. The abdominal aorta is calcified but within normal limits for size. Evaluation of bowel is limited without oral contrast. There is no bowel dilatation. There is no evidence of adenopathy or free fluid. PELVIS: The bladder is unremarkable. The uterus is absent. Ovaries are atrophic. Calcified phleboliths are present bilaterally. There is no evidence of free fluid or adenopathy. BONES AND SOFT TISSUES: Degenerative and postoperative changes are present within the lumbar spine without evidence of lytic or sclerotic lesion. Old right inferior pubic ramus fracture is noted. IMPRESSION: Status post cholecystectomy, hysterectomy, and lumbosacral spinal fusion. Otherwise unremarkable CT of the abdomen and pelvis. Signed by: Ronny Alejandra on 08/23/2019 3:28 PM Dictated By: RONNY ALEJANDRA MD [id number] Transcribed By: CHERRY on 08/23/19 1528 COPY TO: RONNY CORRAL DO - XR SHOULDER 2 + V LT 2019-04-20 15:06:00 FAX: Eric Pop MD [phone] [place]: St: REG FAX: Edith Jackson MD [phone] Name: LAURA KNIGHT [facility] [place] : 1950 Age/S: 68/F [address] Unit #: [id number] Loc: [place] [address] Phys: Eric Mcgee MD Acct: [id number] Dis Date: Status: REG RCR PHONE #: [phone] Exam Date: 04/20/2019 1231 FAX #: Reason: LEFT SHOULDER PAIN EXAMS: CPT CODE: [id number] XR SHOULDER 2 + V LT [address]305 HISTORY: Left shoulder pain. COMPARISON: April 05, 2019. Location: [facility]. 3 views of the left shoulder: Shoulder prosthesis is in good position. No loosening or fracture. Narrowed AC joint. Visualized lungs are clear. Coracoid and acromion appea r unremarkable. IMPRESSION: Shoulder prosthesis appears to be in good position without loosening or fracture. at 1506 Reported and signed by: Mao Guerrero M.D. CC: Eric Mcgee MD; Edith Grimaldo Technologist: RT Erik Bosch (R) Date/Time/By: 04/20/2019 (3102) : By: [email or web address] Orig Print D/T: S: 04/20/2019 (1043) PAGE 1 Signed Report - XR SHOULDER 1 V LT 2019-04-05 11:07:00 FAX: Eric Pop MD [phone] [place]: St: REG FAX: Edith Jackson MD [phone] Name: LAURA KNIGHT [facility] [place] : 1950 Age/S: 68/F [address] [id number] [address] Phys: Eric Mcgee MD Acct: [id number] Dis Date: Status: REG RCR PHONE #: [phone] Exam Date: 04/05/2019 1057 FAX #: Reason: LEFT SHOULDER INJURY EXAMS: CPT CODE: [id number] XR SHOULDER 1 [place] [address]41 HISTORY: Left shoulder pain and postop. COMPARISON: [...] CC: Eric Mcgee MD; Edith Grimaldo Technologist: HARDY Bosch) Trnscrd Date/Time/By: 04/05/2019 (1102) : By: [email or web address] Orig Print D/T: S: 04/05/2019 (9208) PAGE 1 Signed Report GLUBED 2019-03-24 16:30:00 Test Item GLUBED (test code = GLUBED) 147 mg/dL 74-106 H Performed by certified lumber stacker operator at [facility] [id number] 12:39:00* Test Item Value Reference Range Interpretation Comments GLUBED (test code = GLUBED) 163 mg/dL 74-106 H Performed by certified lumber stacker operator at [facility] [id number] 01:06:00* Test Item Value Reference Range Interpretation Comments GLUBED (test code = GLUBED) 175 mg/dL 74-106 H Performed by certified lumber stacker operator at [facility] [id number] 20:30:00* Test Item Value Reference Range Interpretation Comments GLUBED (test code = GLUBED) 111 mg/dL 74-106 H Performed by certified lumber stacker operator at [facility] [id number] 13:11:00* Test Item Value Reference Range Interpretation Comments GLUBED (test code = GLUBED) 170 mg/dL 74-106 H Performed by certified lumber stacker operator at [facility] [id number] 09:13:00* Test Item Value Reference Range Interpretation Comments GLUBED (test code = GLUBED) 177 mg/dL 74-106 H Performed by certified lumber stacker operator at [facility] [id number] 20:14:00* Test Item Value Reference Range Interpretation Comments GLUBED (test code = GLUBED) 117 mg/dL 74-106 H Performed by certified lumber stacker operator at [facility] [id number] 16:42:00* Test Item Value Reference Range Interpretation Comments GLUBED (test code = GLUBED) 107 mg/dL 74-106 H Performed by certified lumber stacker operator at [facility] [id number] 12:43:00* Test Item Value Reference Range Interpretation Comments GLUBED (test code = GLUBED) 146 mg/dL 74-106 H Performed by certified lumber stacker operator at [facility] [id number] 08:02:00* Test Item Value Reference Range Interpretation Comments GLUBED (test code = GLUBED) 98 mg/dL 74-106 N Performed by certified lumber stacker operator at [facility] BASIC METABOLIC [id number] 05:22:00* Test Item Value Reference Range Interpretation [...] CA) 8.1 mg/dL 8.5-10.1 L BASIC METABOLIC [id number] 05:11:00* Test Item Value Reference Range Interpretation [...] code = CA) mg/dL 8.5-10.1 CBC W/AUTO [id number] 04:32:00* Test Item Value Reference Range Interpretation [...] DIFF REQUIRED (test code = MDIFF) NO [id number] 20:28:00* Test Item Value Reference Range Interpretation Comments GLUBED (test code = GLUBED) 85 mg/dL 74-106 N Performed by certified lumber stacker operator at [facility] [id number] 16:26:00* Test Item Value Reference Range Interpretation Comments GLUBED (test code = GLUBED) 96 mg/dL 74-106 N Performed by certified lumber stacker operator at [facility] [id number] 12:47:00* Test Item Value Reference Range Interpretation Comments GLUBED (test code = GLUBED) 157 mg/dL 74-106 H Performed by certified lumber stacker operator at [facility] - XR SHOULDER 2 + V [id number] 12:01:00 FAX: Eric Pop MD [phone] [place]: B St: ADM Name: LAURA CYR [facility] : [birth year] Age/S: 68/F [address] [facility] Unit #: [id number] Loc: [address].[address] [place] [address] Phys: Eric Mcgee MD Acct: [id number] Dis Date: Status: ADM IN PHONE #: [phone] Exam Date: 03/21/2019 1151 FAX #: [phone] Reason: post op pain EXAMS: CPT CODE: [id number] XR SHOULDER 2 + V LT [address] HISTORY: Postop. COM PARISON: March 17, 2019. Location: . 3 views of the left shoulder: Shoulder prosthesis is in good position. No l oosening or fracture. Narrowed AC joint. Scapula and coracoid appear wit hin normal limits. Lungs are clear. IMPRESSION: Shoulder prosthesis is in good position without loosening or fracture or dislocation. at 1201 Reported and signed by: Mao Guerrero M.D. CC: Eric Mcgee MD Technologist: Pk DASH) [facility] Date/Time/By: 03/21/2019 (3014) : By: [email or web address] Orig Print D/T: S: 03/21/2019 (1972) PAGE 1 Cathy d Report [id number] 07:56:00* Test Item Value Reference Range Interpretation Comments GLUBED (test code = GLUBED) 106 mg/dL 74-106 N Performed by certified lumber stacker operator at [facility] [id number] 20:50:00* Test Item Value Reference Range Interpretation Comments GLUBED (test code = GLUBED) 101 mg/dL 74-106 N Performed by certified lumber stacker operator at [facility] [id number] 16:56:00* Test Item Value Reference Range Interpretation Comments GLUBED (test code = GLUBED) 172 mg/dL 74-106 H Performed by certified lumber stacker operator at [facility] [id number] 08:21:00* Test Item Value Reference Range Interpretation Comments GLUBED (test code = GLUBED) 100 mg/dL 74-106 N Performed by certified lumber stacker operator at [facility] HGB [id number] 05:46:00* Test Item Value Reference Range Interpretation Comments HEMOGLOBIN (test code = HGB) 10.8 gram/dL 11.5-15.5 L HEMATOCRIT (test code = HCT) 35.0 % 36.0-46.0 L [id number] 20:04:00* Test Item Value Reference Range Interpretation Comments GLUBED (test code = GLUBED) 89 mg/dL 74-106 N Performed by certified lumber stacker operator at [facility] [id number] 17:42:00* Test Item Value Reference Range Interpretation Comments GLUBED (test code = GLUBED) 90 mg/dL 74-106 N Performed by certified lumber stacker operator at [facility] [id number] 17:15:00 RUN DATE: 03/19/19 [place] - Lab PAGE 1 RUN TIME: 1715 Specimen Inqui ry RUN USER: INTERFACE PATIENT: LAURA KNIGHT ACCT #: [id number] LOC: [facility] U #: [id number] AGE/SX: 68/F ROOM: [facility] RE03/07/19EDEL DR: Anika Harry : 48 BED: A DIS: STATUS: ADM IN TLOC: SPEC #: [id number] RECD: 03/17/19 STATUS: SOUT REQ #: [id number] CHRISTIANO: 03/17/[address]: Eric Mcgee MD ENTERED: 03/17/19 SP TYPE: BONE OTHR DR: Seth Chacon Jr, MD, Kenneth MD Andres,[place] Pek Blancas DO SteveRobson dial MD, Faiza MD Vasquez Donado, Andres F MD Verma, Maneesh MDORDERED: GROSS COPIES TO: Seth Chacon Jr, MD [address] [place], [place] [address] [email or web address] Eric Mcgee MD [address] [place] [address] L ee,[place] Pek Blancas DO [address] [place] [address] [phone] Robson Wilson MD [address] [phone] [place] [address] [place], [place] [id number] Eliazar Rodriguez MD [address] [facility] [address] [place] [address] [place] [address] [place], [place] [id number] CONTINUED ON NEXT PAGE RUN DATE: 03/19/19 [place] - Lab PAGE 2 RUN TIME: 1715 Specimen I nquiry RUN USER: INTERFACE SPEC #: [id number] PATIENT: KENNETH KNIGHT #[id number] (Continued) PROCEDURES: GROSS ( 03/19/19-144) TISSUES: HUMERUS, NOS - LEFT HEAD CLINICAL HIST ORY COLLECTION DATE: 03/17/19 LEFT SHOULDER FRACTURE FINAL DIAG NOSIS Left humeral head, hemiarthroplasty: FRACTURED HUMERAL HEAD NEGATIVE FOR MALIGNANCY DMW/ D [address], [address] [facility] The specimen is received in formalin labeled with the patient's name, "l eft humeral head" and consists of a round, dome shaped portion of dark knott-bro wn bone measuring 4.1 x 4.1 by up to 2.0 cm. The articular surface is smooth and polished appearing. The opposite surface is brown-red and gritty. The specimen is submitted for decalcification prior to sectioning. Perianesthesia Manager tissue is submitted in a single cassette. GROSS PERFORMED AT [facility] [address] [place] [address] (P)[phone] MICROSCOPIC All of the stains, including any controls performed, stain appropriately. MICROSCOPIC PERFO RMED AT [facility] [address] [place] [address] (P)[phone] CONTINUED ON NEXT PAGE RUN DATE: 03/19/19 [place] - Lab PAGE 3 RUN TIME: 1715 Specimen Inquiry RUN USER: INTERFACE SPEC #: [id number] PATIENT: LAURA KNIGHT #[id number] (Continued)--------- --- PERFORMING SITE Diagnosis performed at: [facility] [address] [place] [address] Signed SIGNATURE ON FILE Mamie Cunningham MD 03/19/19 1715 END OF REPORT [id number] 16:38:00* Test Item Value Reference Range Interpretation Comments GLUBED (test code = GLUBED) 157 mg/dL 74-106 H Performed by certified lumber stacker operator at [facility] [id number] 07:49:00* Test Item Value Reference Range Interpretation Comments GLUBED (test code = GLUBED) 93 mg/dL 74-106 N Performed by certified lumber stacker operator at [facility] BASIC METABOLIC [id number] 05:05:00* Test Item Value Reference Range Interpretation [...] CA) 8.7 mg/dL 8.5-10.1 N BASIC METABOLIC [id number] 05:01:00* Test Item Value Reference Range Interpretation [...] code = CA) mg/dL 8.5-10.1 CBC W/AUTO [id number] 04:50:00* Test Item Value Reference Range Interpretation [...] DIFF REQUIRED (test code = MDIFF) NO [id number] 20:48:00* Test Item Value Reference Range Interpretation Comments GLUBED (test code = GLUBED) 125 mg/dL 74-106 H Performed by certified lumber stacker operator at [facility] [id number] 16:20:00* Test Item Value Reference Range Interpretation Comments GLUBED (test code = GLUBED) 104 mg/dL 74-106 N Performed by certified lumber stacker operator at [facility] [id number] 08:52:00* Test Item Value Reference Range Interpretation Comments GLUBED (test code = GLUBED) 128 mg/dL 74-106 H Performed by certified lumber stacker operator at [facility] [id number] 07:01:00* Test Item Value Reference Range Interpretation Comments GLUBED (test code = GLUBED) 142 mg/dL 74-106 H Performed by certified lumber stacker operator at [facility] BASIC METABOLIC [id number] 06:51:00* Test Item Value Reference Range Interpretation [...] CA) 8.7 mg/dL 8.5-10.1 N CBC W/AUTO [id number] 06:21:00* Test Item Value Reference Range Interpretation [...] N - XR SHOULDER 2 + V [id number] 19:22:00 FAX: Eric Pop MD [phone] [place]: St: ADM Name: LAURA CYR [facility] : [birth year] Age/S: 68/F [address] [facility] Unit #: [id number] Loc: V.[address] [place] [address] Phys: Eric Mcgee MD Acct: [id number] Dis Date: Status: ADM IN PHONE #: [phone] Exam Date: 03/17/2019 190 FAX #: [phone] Reason: post op EXAMS: CPT CODE: [id number] XR SHOULDER 2 + [place] [address] REASON FOR EXAM: post op EXAM ORDER [...] Trnscrd Date/Time /By: 03/17/2019 (1921) : By: [email or web address] Orig Print D/T: S: 03/17/2019 ( 1924) PAGE 1 Signed Report [id number] 15:55:00* Test Item Value Reference Range Interpretation Comments GLUBED (test code = GLUBED) 126 mg/dL 74-106 H Per[facility] by certified lumber stacker [facility]~ COMPREHENSIVE METABOLIC [id number] 13:13:00* Test Item Value Reference Range Interpretation [...] due to change in reagent. COMPREHENSIVE METABOLIC [id number] 13:05:00* Test Item Value Reference Range Interpretation [...] code = ALKP) IUnit/L 45-117 CBC W/AUTO [id number] 12:47:00* Test Item Value Reference Range Interpretation [...] DIFF REQUIRED (test code = MDIFF) NO [id number] 12:27:00* Test Item Value Reference Range Interpretation Comments GLUBED (test code = GLUBED) 149 mg/dL 74-106 H Performed by certified lumber stacker operator [facility]~ [id number] 08:53:00* Test Item Value Reference Range Interpretation Comments GLUBED (test code = GLUBED) 138 mg/dL 74-106 H Performed by certified lumber stacker operator [facility]~ [id number] 20:35:00* Test Item Value Reference Range Interpretation Comments GLUBED (test code = GLUBED) 153 mg/dL 74-106 H Performed by certified lumber stacker operator at [facility] [id number] 18:25:00* Test Item Value Reference Range Interpretation Comments MAGNESIUM (test code = MAG) 1.7 mg/dL 1.8-2.4 L [id number] 08:13:00* Test Item Value Reference Range Interpretation Comments GLUBED (test code = GLUBED) 150 mg/dL 74-106 H Performed by certified lumber stacker operator at [facility] HGB [id number] 05:52:00* Test Item Value Reference Range Interpretation Comments HEMOGLOBIN (test code = HGB) 13.4 gram/dL 11.5-15.5 N HEMATOCRIT (test code = HCT) 41.4 % 36.0-46.0 N [id number] 05:28:00* Test Item Value Reference Range Interpretation Comments GLUBED (test code = GLUBED) 147 mg/dL 74-106 H Performed by certified lumber stacker operator at [facility] [id number] 20:50:00* Test Item Value Reference Range Interpretation Comments GLUBED (test code = GLUBED) 205 mg/dL 74-106 H Performed by certified lumber stacker operator at [facility] [id number] 16:37:00* Test Item Value Reference Range Interpretation Comments GLUBED (test code = GLUBED) 110 mg/dL 74-106 H Performed by certified lumber stacker operator at [facility] [id number] 12:20:00* Test Item Value Reference Range Interpretation Comments GLUBED (test code = GLUBED) 131 mg/dL 74-106 H Performed by certified lumber stacker operator at [facility] [id number] 08:51:00* Test Item Value Reference Range Interpretation Comments GLUBED (test code = GLUBED) 132 mg/dL 74-106 H Performed by certified lumber stacker operator at [facility] CBC W/AUTO [id number] 07:02:00* Test Item Value Reference Range Interpretation [...] NRBC#) 0.00 K/mm3 0.0-0.1 N BASIC METABOLIC [id number] 06:58:00* Test Item Value Reference Range Interpretation [...] CA) 9.3 mg/dL 8.5-10.1 N BASIC METABOLIC [id number] 06:53:00* Test Item Value Reference Range Interpretation [...] CALCIUM (test code = CA) mg/dL 8.5-10.1 [id number] 21:15:00* Test Item Value Reference Range Interpretation Comments GLUBED (test code = GLUBED) 131 mg/dL 74-106 H Performed by certified lumber stacker operator at [facility] [id number] 16:37:00* Test Item Value Reference Range Interpretation Comments GLUBED (test code = GLUBED) 130 mg/dL 74-106 H Performed by certified lumber stacker operator at [facility] [id number] 12:05:00* Test Item Value Reference Range Interpretation Comments GLUBED (test code = GLUBED) 142 mg/dL 74-106 H Performed by certified lumber stacker operator at [facility] [id number] 08:40:00* Test Item Value Reference Range Interpretation Comments GLUBED (test code = GLUBED) 119 mg/dL 74-106 H Performed by certified lumber stacker operator at [facility] BASIC METABOLIC [id number] 06:24:00* Test Item Value Reference Range Interpretation [...] CA) 9.1 mg/dL 8.5-10.1 N CBC W/AUTO [id number] 06:12:00* Test Item Value Reference Range Interpretation [...] NRBC#) 0.00 K/mm3 0.0-0.1 N BASIC METABOLIC [id number] 06:12:00* Test Item Value Reference Range Interpretation [...] code = CA) mg/dL 8.5-10.1 CBC W/AUTO [id number] 06:07:00* Test Item Value Reference Range Interpretation [...] # (test code = BA#) K/mm3 0.0-0.2 [id number] 21:06:00* Test Item Value Reference Range Interpretation Comments GLUBED (test code = GLUBED) 122 mg/dL 74-106 H Performed by certified lumber stacker operator at [facility] [id number] 16:38:00* Test Item Value Reference Range Interpretation Comments GLUBED (test code = GLUBED) 172 mg/dL 74-106 H Performed by certified lumber stacker operator at [facility] [id number] 11:52:00* Test Item Value Reference Range Interpretation Comments GLUBED (test code = GLUBED) 183 mg/dL 74-106 H Performed by certified lumber stacker operator at [facility] [id number] 21:45:00* Test Item Value Reference Range Interpretation Comments GLUBED (test code = GLUBED) 128 mg/dL 74-106 H Performed by certified lumber stacker operator at [facility] [id number] 17:28:00* Test Item Value Reference Range Interpretation Comments GLUBED (test code = GLUBED) 129 mg/dL 74-106 H Performed by certified lumber stacker operator [facility]~ - XR SHOULDER 2 + V [id number] 14:25:00 FAX: Seth Licona [phone] [place]: St: ADM Name: LAURA CYR [facility] : [birth year] Age/S: 68/F [address] [facility] Unit #: [id number] Loc: [address] [place] [address] Phys: Seth Chacon Jr, MD Acct: [id number] Dis Date: Status: ADM IN PHONE #: [phone] Exam Date: 03/11/2019 1403 FAX #: [phone] Reason: S/P fall eval for dislocation for OR EXAMS: CPT CODE: [id number] XR SHOULDER 2 + V LT [address] HISTORY: S/P fall eval for disloc ation [...] the greater tuberosity of the humerus. Location: [facility] at 1425 Reported and signed by: Parvez Tran MD CC: Seth Jack Jr, MD Technologist: Lili henley RT(R); ELADIO PRATHER RT(R) Trnscrd Date/Time/By: 03/11/2019 (14 ) : By: [email or web address] Orig Print D/T: S: 03/11/2019 (4706) PAGE 1 Signed Report [id number] 12:13:00* Test Item Value Reference Range Interpretation Comments GLUBED (test code = GLUBED) 124 mg/dL 74-106 H Performed by certified lumber stacker operator [facility]~ - CT C-SPINE W/O [id number] 08:24:00 Name: LAURA KNIGHT [facility] : 1950 Age/S: 68 / F [address] [facility] [id number] Loc: [place] bianchi [address] Phys: Rolly Harry Acct: [id number] Dis Date: Status: ADM IN PHONE #: [phone] Exam Date: 03/11/2019 0809 FAX #: [phone] Reason: fall EXAMS: CPT CODE: [id number] CT C-SPINE W/O CONTRAST 63776 HISTORY: fall TECHNIQUE: 2.[address] [...] Signed Report (CONTINUED ) Name: LAURA KNIGHT [facility] D OB: 1950 Age/S: 68 / F [address] [facility] Unit #: [id number] Loc: [place] [address] Phys: Nicoclaudio bowensDanielkathiyahaira Maharaj Acct: [id number] Dis Date: Status: ADM IN PHONE #: [phone] Exam Date: 03/11/2019808 FAX #: Reason: fall EXAMS: CPT CODE: [id number] CT C-SPINE W/O CONTRAST 86325 <Continued> Location: [facility] at 0824 Reported and signed by: Parvez Tran MD CC: Technologist:Ham Canales RT(R),(MR),(CT); CTDI: DLP: Trnscb Date/Time: 03/11/2019 (823) [email or web address] Orig Print D/T: S: 03/11/2019 (826) PAGE 2 Signed Report [id number] 08:04:00* Test Item Value Reference Range Interpretation Comments GLUBED (test code = GLUBED) 148 mg/dL 74-106 H Performed by certified lumber stacker operator [facility]~ [id number] 21:04:00* Test Item Value Reference Range Interpretation Comments GLUBED (test code = GLUBED) 148 mg/dL 74-106 H Performed by certified lumber stacker operator at [facility] [id number] 17:05:00* Test Item Value Reference Range Interpretation Comments GLUBED (test code = GLUBED) 168 mg/dL 74-106 H Performed by certified lumber stacker operator at [facility] [id number] 11:41:00* Test Item Value Reference Range Interpretation Comments GLUBED (test code = GLUBED) 123 mg/dL 74-106 H Performed by certified lumber stacker operator at [facility] [id number] 11:38:00* Test Item Value Reference Range Interpretation Comments GLUBED (test code = GLUBED) 125 mg/dL 74-106 H Performed by certified lumber stacker operator at [facility] [id number] 20:39:00* Test Item Value Reference Range Interpretation Comments GLUBED (test code = GLUBED) 122 mg/dL 74-106 H Performed by certified lumber stacker operator at [facility] - XR KNEE 1 OR 2 V [id number] 19:49:00 FAX: Dao You [place]: St: ADM Name: LAURA CYR [facility] : [birth year] Age/S: 68/F [address] [facility] Unit #: [id number] Loc: [address] [address] Phys: Dao Campos [facility] Acct: [id number] Dis Date: Status: ADM IN PHONE #: [phone] Exam Date: 03/09/20191918 FAX #: [phone] Reason: s/p fall bilat knee pain EXAMS: CPT CODE: [id number] XR KNEE 1 OR 2 V 10334 HISTORY: Left shoulder fracture. COMPARISON: X-ray from [...] consistent with advanced osteoarth ritis. at 1 679 Reported and signed by: Mao Guerrero M.D. CC : Dao Campos [facility] Technologist: FRANCIA DHILLON; [place], RT(R Trnscrd Date/Time/By: 03/09/2019 (1949) : By: [email or web address] Orig Print D/T: S: 03/09/2019 (1952) PAGE 1 Signed Report - XR SHOULDER 2 + V [id number] 19:49:00 FAX: Dao You [place]: St: ADM Name: LAURA CYR [facility] : [birth year] Age/S: 68/F [address] [facility] Unit #: [id number] Loc: VShivam[address] [place] [address] Phys: Dao Campos [facility] Acct: [id number] Dis Date: Status: ADM IN PHONE #: [phone] Exam Date: 03/09/20191918 FAX #: [phone] Reason: lt shoulder fxr EXAMS: CPT CODE: [id number] XR SHOULDER 2 + V LT [address] HISTORY: Left shoulder fracture. COMPARISON: X-ray from [...] [place]R Trnscrd Date/Time/By: 03/09/2019 (1949) : By: [email or web address] Orig Print D/T: S: 03/09/2019 (1952) PAGE 1 Signed Report [id number] 16:41:00* Test Item Value Reference Range Interpretation Comments GLUBED (test code = GLUBED) 128 mg/dL 74-106 H Performed by certified lumber stacker operator [facility]~ [id number] 11:34:00* Test Item Value Reference Range Interpretation Comments GLUBED (test code = GLUBED) 127 mg/dL 74-106 H Performed by certified lumber stacker operator [facility]~ [id number] 09:05:00* Test Item Value Reference Range Interpretation Comments GLUBED (test code = GLUBED) 121 mg/dL 74-106 H Performed by certified lumber stacker operator [facility]~ BASIC METABOLIC [id number] 05:04:00* Test Item Value Reference Range Interpretation [...] CA) 8.9 mg/dL 8.5-10.1 N BASIC METABOLIC [id number] 05:02:00* Test Item Value Reference Range Interpretation [...] code = CA) mg/dL 8.5-10.1 CBC W/AUTO [id number] 04:44:00* Test Item Value Reference Range Interpretation [...] (test code = MDIFF) NO CBC W/AUTO [id number] 04:41:00* Test Item Value Reference Range Interpretation [...] # (test code = BA#) K/mm3 0.0-0.2 [id number] 20:33:00* Test Item Value Reference Range Interpretation Comments GLUBED (test code = GLUBED) 143 mg/dL 74-106 H Performed by certified lumber stacker operator at [facility] [id number] 16:33:00* Test Item Value Reference Range Interpretation Comments GLUBED (test code = GLUBED) 143 mg/dL 74-106 H Performed by certified lumber stacker operator at [facility] [id number] 12:36:00* Test Item Value Reference Range Interpretation Comments GLUBED (test code = GLUBED) 142 mg/dL 74-106 H Performed by certified lumber stacker operator at [facility] [id number] 08:32:00* Test Item Value Reference Range Interpretation Comments GLUBED (test code = GLUBED) 150 mg/dL 74-106 H Performed by certified lumber stacker operator at [facility] ARTERIAL BLOOD [id number] 22:37:00* Test Item Value Reference Range Interpretation [...] = O2CT) 17.1 % vol 18.0-22.0 L [id number] 21:36:00* Test Item Value Reference Range Interpretation Comments GLUBED (test code = GLUBED) 115 mg/dL 74-106 H Performed by certified lumber stacker operator at [facility] [id number] 17:39:00* Test Item Value Reference Range Interpretation Comments GLUBED (test code = GLUBED) 119 mg/dL 74-106 H Performed by certified lumber stacker operator at [facility] DRUGS OF ABUSE SCREEN [id number] 16:05:00* Test Item Value Reference Range Interpretation [...] NEGATIVE <300 ng/mL DRUGS OF ABUSE SCREEN [id number] 15:31:00* Test Item Value Reference Range Interpretation [...] METHADONE (test code = METHAURN) <300 ng/mL [id number] 14:04:00* Test Item Value Reference Range Interpretation Comments GLUBED (test code = GLUBED) 150 mg/dL 74-106 H Performed by certified lumber stacker operator at [facility] PROCALCITONIN (PCT)2019-03-07 04:33:00* Test Item Value Reference [...] taking into account the patients history. LACTIC [id number] 04:23:00* Test Item Value Reference Range Interpretation Comments LACTIC ACID (test code = LACT) 1.0 mmol/L 0.4-1.9 N - CTA [id number] 03:22:00 Name: KNIGHTLAURAGAEL HAYS [facility] : 1950 Age/S: 68 / F [address] [facility] Unit #: [id number] Loc: [place] [address] Phys: Dionna Tompkins MD Acct: [id number] Dis Date: Status: REG ER PHONE #: [phone] Exam Date: 03/07/2019 0240 FAX #: [phone] Reason: SOB EXAMS: CPT CODE: [id number] CTA CHEST 22571 AFTER HOURS SERVICE ON: 03/07/2019 3:20 AM [...] 1 Signed Report (CONTINUED) Name: LAURA KNIGHT [facility] : 1950 Age/S: 68 / F [address] [facility] Unit #: [id number] Loc: [place] [address] Phys: Dionna Tompkins MD Acct: [id number] Dis Date: Status: REG ER PHONE #: [phone] Exam Date: 03/07/2019 0240 FAX #: [phone] Reason: SOB EXAMS: CPT CODE: [id number] CTA CHEST 84287 < Continued> CC: Dionna Tompkins MD Technologist:Sukhdev Askew RT(R) CTDI: DLP: Trnscb Date/Time: 03/07/2019 (0322) [email or web address] Orig Print D/T: S: 03/07/2019 (0328) PAGE 2 Signed Report URINALYSIS [id number] 02:45:00* Test Item Value Reference Range Interpretation [...] Urine Source? Clean CatchDRUGS OF ABUSE SCREEN [id number] 02:45:00* Test Item Value Reference Range Interpretation [...] [place]) <300 ng/mL Urine Source? Clean CatchURINALYSIS [id number] 02:43:00* Test Item Value Reference Range Interpretation [...] Urine Source? Clean CatchDRUGS OF ABUSE SCREEN [id number] 02:43:00* Test Item Value Reference Range Interpretation [...] [place]) <300 ng/mL Urine Source? Clean CatchURINALYSIS [id number] 02:43:00* Test Item Value Reference Range Interpretation [...] Urine Source? Clean CatchDRUGS OF ABUSE SCREEN [id number] 02:43:00* Test Item Value Reference Range Interpretation [...] <300 ng/mL Urine Source? Clean CatchB-TYPE NATRIURETIC [id number] 02:10:00* Test Item Value Reference Range Interpretation Comments B-TYPE NATRIURETIC PEPTIDE (test code = BNP) 88.39 pgram/mL 0-100 N ARTERIAL BLOOD [id number] 02:05:00* Test Item Value Reference Range Interpretation [...] Pulido 02:01 - 03/07/2019; by Faviola CHRISTOPHER RN TRANSITION ABG O2 SATURATION (test code = SATA) [...] code = AAGRADE) 275.1 mm Hg PROTHROMBIN [id number] 01:45:00* Test Item Value Reference Range Interpretation [...] (2.5-3.5) IS PATIENT ON ANTICOAGULANTS? NTHROMBOPLASTIN TIME [id number] 01:45:00* Test Item Value Reference Range Interpretation Comments THROMBOPLASTIN TIME PARTIAL (test code = PTT) 26.7 seconds 25.0-36. 5 N IS PATIENT ON ANTICOAGULANTS? NCBC W/O [id number] 01:42:00* Test Item Value Reference Range Interpretation [...] MPV) 9.4 fL 6.7-11.0 N BASIC METABOLIC [id number] 01:39:00* Test Item Value Reference Range Interpretation [...] CA) 8.8 mg/dL 8.5-10.1 N HEPATIC FUNCTION [id number] 01:39:00* Test Item Value Reference Range Interpretation [...] reference range due to change in reagent. [id number] 01:39:00* Test Item Value Reference Range Interpretation Comments LIPASE (test code = LIP) 333 U/L 73.0-393.0 N [id number] 01:39:00* Test Item Value Reference Range Interpretation Comments MAGNESIUM (test code = MAG) 1.6 mg/dL 1.8-2.4 L [id number] 01:39:00* Test Item Value Reference Range Interpretation Comments TROPONIN-I (test code = TROPI) <0.015 ng/mL 0-0.045 N - XR CHEST 1 [id number] 01:37:00 FAX: Dionna Tompkins MD [phone] [place]: St: REG Name: LAURA CYR [facility] : [birth year] Age/S: 68/F [address] [facility] Unit #: [id number] Loc: [place] [address] Phys: Dionna Tompkins MD Acct: [id number] Dis Date: Status: REG ER PHONE #: [phone] Exam Date: 03/07/2019 0120 FAX #: [phone] Reason: Shortness of Breath EXAMS: CPT CODE: [id number] XR CHEST 1 V 09914 LOCATION: 3 EXAM: - XR CHEST 1 [...] By: [email or web address] Orig Print D/T: S: 03/07/2019 (0148) PAGE 1 Signed Report LACTIC [id number] 01:35:00* Test Item Value Reference Range Interpretation Comments LACTIC ACID (test code = LACT) 1.2 mmol/L 0.4-1.9 N BASIC METABOLIC [id number] 01:28:00* Test Item Value Reference Range Interpretation [...] code = CA) mg/dL 8.5-10.1 HEPATIC FUNCTION [id number] 01:28:00* Test Item Value Reference Range Interpretation [...] TOTAL (test code = ALKP) IUnit/L 45-117 [id number] 01:28:00* Test Item Value Reference Range Interpretation Comments LIPASE (test code = LIP) U/L 73.0-393.0 [id number] 01:28:00* Test Item Value Reference Range Interpretation Comments MAGNESIUM (test code = MAG) mg/dL 1.8-2.4 [id number] 01:28:00* Test Item Value Reference Range Interpretation Comments TROPONIN-I (test code = TROPI) ng/mL 0-0.045 - XR KNEE 3 V [id number] 21:07:00 FAX: Jomar Love MD [phone] [place]: St: REG Name: LAURA CYR [facility] : [birth year] Age/S: 68/F [address] [facility] Unit #: [id number] Loc: [place] [address] Phys: Jomar Love MD Acct: [id number] Dis Date: Status: REG ER PHONE #: [phone] Exam Date: 02/03/20192030 FAX #: [phone] Reason: KNEE PAIN EXAMS: CPT CODE: [id number] XR KNEE [address] [place] [address] HISTORY: Pain after trauma. COMPARISON: None available. [...] Signed by Carlos Alberto Guerrero on at 2100 Reported and signed by: Tete Everett CC: Jomar Love MD Techn ologist: Lopez KNOX(R); Los Fieldsandria Vinson, RT(R Trnscrd Date/Alex e/By: 02/03/2019 (2106) : By: [email or web address] Orig Print D/T: S: 02/03/2019 (2110) PAGE 1 Signed Report - XR TIBIA/FIBULA 2 V [id number] 21:07:00 FAX: Jomar Love MD [phone] [place]: St: REG Name: LAURA CYR [facility] : [birth year] Age/S: 68/F [address] [facility] Unit #: [id number] Loc: [place] [address] Phys: Jomar Love MD Acct: [id number] Dis Date: Status: REG ER PHONE #: [phone] Exam Date: 02/03/20192030 FAX #: [phone] Reason: LEG PAIN EXAMS: CPT CODE: [id number] XR TIBIA/FIB[place] [address] [place] [address] HISTORY: Pain after trauma. COMPARISON: None available. [...] ologist: Lopez Hernández RT(R); Los Vinson RT(R Trnrird Date/Alex e/By: 02/03/2019 (2106) : By: [email or web address] Orig Print D/T: S: 02/03/2019 (2110) PAGE 1 Signed Report - XR T-SPINE 3 [id number] 21:03:00 FAX: Jomar Love MD [phone] [place]: St: REG Name: LAURA CYR [facility] : [birth year] Age/S: 68/F [address] [facility] Unit #: [id number] Loc: [place] [address] Phys: Jomar Love MD Acct: [id number] Dis Date: Status: REG ER PHONE #: [phone] Exam Date: 02/03/20192026 FAX #: [phone] Reason: BACK PAIN EXAMS: CPT CODE: [id number] XR T-SPINE 3 VIEWS 79047 HISTORY: Pain after fall. COMPARISON: None available. [...] nique. Vertebral body heights are maintained. at 2102 Reported and signed by: Mao Guerrero M.D. CC: Jomar Love MD Technologist: Lopez Hernández RT(R); Los Vinson RT(R Trnrird Date/Time/By: 02/03/2019 (2102) : By: [email or web address] Orig Print D/T: S: 02/03/2019 (2106) PAGE 1 Signed Report - XR L-SPINE 2/3 [id number] 21:03:00 FAX: Jomar Love MD [phone] [place]: St: REG Name: LAURA CYR [facility] : [birth year] Age/S: 68/F [address] [facility] Unit #: [id number] Loc: [place] [address] Phys: Jomar Love MD Acct: [id number] Dis Date: Status: REG ER PHONE #: [phone] Exam Date: 02/03/20192030 FAX #: [phone] Reason: BACK PAIN EXAMS: CPT CODE: [id number] XR L-SPINE 2/3 VIEWS 95410 HISTORY: Pain after fall. COMPARISON: None available. [...] nique. Vertebral body heights are maintained. at 2102 Reported and signed by: Mao Guerrero M.D. CC: Jomar Love MD Technologist: Lopez Hernández RT(R); Los Vinson RT(R [facility] Date/Time/By: 02/03/2019 (2102) : By: [email or web address] Orig Print D/T: S: 02/03/2019 (2106) PAGE 1 Signed Report - XR HUMERUS 2 + V [id number] 21:00:00 FAX: Jomar Love MD [phone] [place]: St: REG Name: LAURA CYR [facility] : [birth year] Age/S: 68/F [address] [facility] Unit #: [id number] Loc: [place] [address] Phys: Jomar Love MD Acct: [id number] Dis Date: Status: REG ER PHONE #: [phone] Exam Date: 02/03/20192030 FAX #: [phone] Reason: arm pain EXAMS: CPT CODE: [id number] XR HUMERUS 2 + [place] [address] HISTORY: Pain after fall. COMPARISON: None available. [...] Technologist: Lopez Hernández RT(R); Los Vinson RT(R Trnrird Date/Time/By: 02/03/2019 (2099) : By: Donya. Orig Print D/T: S: 02/03/2019 (2102) PAGE 1 Signed Report - XR SHOULDER 2 + V [id number] 21:00:00 FAX: Jomar Love MD [phone] [place]: St: REG Name: LAURA CYR [facility] : [birth year] Age/S: 68/F [address] [facility] Unit #: [id number] Loc: [place] [address] Phys: Jomar Love MD Acct: [id number] Dis Date: Status: REG ER PHONE #: [phone] Exam Date: 02/03/20192030 FAX #: [phone] Reason: arm pain EXAMS: CPT CODE: [id number] XR SHOULDER 2 + [place] [address] HISTORY: Pain after fall. COMPARISON: None available. [...] Technologist: Lopez Hernández RT(R); Los Vinson RT(R Trnrird Date/Time/By: 02/03/2019 (2099) : By: Donya. 4 Orig Print D/T: S: 02/03/2019 (2102) PAGE 1 Signed Report - XR HIP BI [id number] 20:58:00 FAX: Jomar Love MD [phone] [place]: St: REG Name: LAURA CYR [facility] : [birth year] Age/S: 68/F [address] [facility] Unit #: [id number] Loc: [place] [address] Phys: Jomar Love MD Acct: [id number] Dis Date: Status: REG ER PHONE #: [phone] Exam Date: 02/03/20192001 FAX #: [phone] Reason: HIP PAIN EXAMS: CPT CODE: [id number] XR HIP BI W/PELVIS 08164 HISTORY: Pain. BOO RISON: None available. Right femur series and bilateral hip series : Location: . No acute fracture or dislocation. B ilaterally [...] Trnscrd Date/Time/By: 02/03/2019 (2057) : By: bao [email or web address] Orig Print D/T: S: 02/03/2019 (2100) P AGE 1 Signed Report - XR FEMUR MIN 2 VWS [id number] 20:58:00 FAX: Jomar Love MD [phone] [place]: St: REG Name: LAURA CYR [facility] : [birth year] Age/S: 68/F [address] [facility] Unit #: [id number] Loc: [place] [address] Phys: Jomar Love MD Acct: [id number] Dis Date: Status: REG ER PHONE #: [phone] Exam Date: 02/03/20192030 FAX #: [phone] Reason: THIGH PAIN EXAMS: CPT CODE: [id number] XR FEMUR MIN [address] [place] [address] HISTORY: Pain. BOO RISON: None available. Right [...] Signed Report - CT C- SPINE W/O [id number] 20:55:00 Name: LAURA KNIGHT [facility] : 1950 Age/S: 68 / F [address] [facility] Unit #: [id number] Loc: [place] [address] Phys: Jomar Love MD Acct: [id number] Dis Date: Status: REG ER PHONE #: [phone] Exam Date: 02/03/20191950 FAX #: [phone] Reason: Neck Pain EXAMS: CPT CODE: [id number] CT C-SPINE W/O CONTRAST 88988 HISTORY: Pain. COMPARISON: None available. Location: TH. [...] CC: Jomar Love MD Technologist:Kiersten Bro RT(R); Sukhdev Doa CTDI: DLP: Trnscb Date/Time: 02/03/2019 (2054) [email or web address] Orig Print D/T: S: 02/03/2019 (2058) PAGE 1 Signed Report - XR FEMUR MIN 2 VWS [id number] 20:55:00 FAX: Jomar Love MD [phone] [place]: St: REG Name: LAURA CYR [facility] : [birth year] Age/S: 68/F [address] [facility] Unit #: [id number] Loc: [place] [address] Phys: Jomar Love MD Acct: [id number] Dis Date: Status: REG ER PHONE #: [phone] Exam Date: 02/03/20192030 FAX #: [phone] Reason: THIGH PAIN EXAMS: CPT CODE: [id number] XR FEMUR MIN [address] [place] [address] HISTORY: Pain. BOO RISON: None available. Location: . CT CERVICAL SPI NE WITHOUT CONTRAST: AUTOMATED [...] and knee joints. at 2054 Reported and s igned by: Mao Guerrero M.D. CC: Jomar Love MD Technologist: Lopez Hernández RT(R); Los Vinson RT(R Trnscrd Date/Time/By: 02/03/2019 (2054) : By: [email or web address] Orig Print D/T: S: 02/03/2019 (2058) PAGE 1 Signed Report - CT HEAD/BRAIN W/O [id number] 20:07:00 Name: LAURA KNIGHT [facility] : 1950 Age/S: 68 / F [address] [facility] Unit #: [id number] Loc: [place] [address] Phys: Jomar Love MD Acct: [id number] Dis Date: Status: REG ER PHONE #: [phone] Exam Date: 02/03/20191950 FAX #: [phone] Reason: HEADACHE EXAMS: CPT CODE: [id number] CT HEAD/BRAIN W/O CONT 62272 HISTORY: Pain after fall. COMPARISON: MRI from [...] matter ischemic disease and atrophy . at 2006 Reported and signed by: Mao Guerrero M.D. PAGE 1 Signed Report (CONTINUED) Name: LAURA KNIGHT [facility] : 1950 Age/S: 68 / F [address] [facility]: [id number] Loc: [place] [address] Phys: Jomar Love MD Acct: [id number] Dis Date: Status: REG ER PHONE #: [phone] Exam Date: 02/03/20191950 FAX #: [phone] Reason: HEADACHE EXAMS: CPT CODE: [id number] CT HEAD/BRAIN W/O CONT 34159 <Continued> CC: Jomar Love MD Technologist:Kiersten Bro RT(R) CTDI: DLP: Trnscb Date/Time: 02/03/2019 (2006) [email or web address] Orig Print D/T: S: 02/03/2019 (2009) PAGE 2 Signed Report [QL] CMP W/[id number] 13:24:00* Test Item Value Reference Range Interpretation Comments GLUCOSE; Above High Threshold (test code = 1547-9) 207 mg/dl 65- 139 Non- fasting reference interval UREA NITROGEN (BUN) (test code = UREA NITROGEN (BUN)) 10 mg/dl 7-25 N CREATININE (test code = CREATININE) 0.84 mg/dl 0.50-0.99 N For patients >49 years of age, the reference limitfor Creatinine is approximately 13% higher for peopleidentified as -Bots[place]. eGFR NON- (test code = eGFR NON-ROB N MAURITIAN) 71 {ML/MIN/1.7} > OR = 60 N [...] N BILIRUBIN, TOTAL; Normal (test code = 67672-6) 0.5 mg/dl 0.2-1.2 N ALKALINE PHSPHATASE (test code = ALKALINE PHSPHATASE) 108 u/l 33-130 N AST; Normal (test code = 1916-6) 22 u/l 10-35 N ALT; Normal (test code = 1742-6) 13 u/l 6-29 N [facility]] CBC (INCLUDES DIFF/PLT)2018-08-20 13:24:00* Test Item Value Reference Range Interpretation Comments WHITE BLOOD CELL COUNT (test code = WHITE BLOOD CELL COUNT) 9.0 {Thousand/u} 3.8-10.8 N RED BLOOD CELL COUNT (test code = RED BLOOD CELL COUNT) 4.56 {Million/uL} 3.80-5.10 N HEMAGLOBIN; Normal (test code = 97632-8) 12.7 g/dl 11.7-15.5 N HEMATOCRIT; Normal (test code = 4544-3) 39.4 % 35.0-45.0 N MCV; Normal (test code = 787-2) 86.4 fL 80.0-100.0 N MCHC; Normal (test code = 77980-9) 32.2 g/dl 32.0-36.0 N RDW; Normal (test code = 788-0) 13.3 % 11.0-15.0 N PLATELET COUNT; Normal (test code = 777-3) 261 {Thousand/u} 140-400 N MPV; Normal (test code = 30308-2) 9.6 fL 7.5-12.5 N ABSOLUTE NEUTROPHILS (test code = ABSOLUTE NEUTROPHILS) 5598 {cells/uL} 4926-8849 N ABSOLUTE LYMPHOCYTES (test code = ABSOLUTE [...] % N MONOCYTES; Normal (test code = 24698-2) 7.8 % N EOSINOPHILS; Normal (test code = 75402-6) 1.4 % N BASOPHILS; Normal (test code = 01185-1) 0.6 % N [facility] DXA DUAL [id number] 17:20:00 [place] [address] Patient Name: LAURA KNIGHT MR #: [id number] : 1950 Age/Sex: 67/F Req #: [id number] Adm Physician: Ordered by: EDITH GRIMALDO MD Report #: [id number] Location: [facility] Room/Bed: Procedure: 5942-9386 DX/B ONE DXA DUAL ENERGY Exam Date: [...] the fracture risk is increased. 2. The AX 10-year probability of major osteoporotic fracture is 11% and hip fracture is 2.1%. These probabilities assume the patient is untreated. Signed by: Tessie Cunningham D.O., M.M.M. on 05/01/2018 5:22 PM Dictated By: ROHINI Gillespie DO 21 Transcribed By: CHERRY on 05/01/181721 COPY TO: EDITH GRIMALDO MD MAMMOGRAPHY DIGITAL SCR [id number] 15:26:00 [place] [address] Patient Name: LAURA KNIGHT MR #: [id number] : 1950 Age/Sex: 67/F Req #: [id number] Adm Physician: Ordered by: EDITH GRIMALDO MD Report #: [id number] Location: [facility] Room/Bed: Procedure: 1290-2421 MG/M AMMOGRAPHY DIGITAL SCR BILAT Exam Date: 05/01/18 Exa m Time: 1100 REPORT STATUS: Signed #[id number] - MGSCRBIL #BILATERAL DIGITAL SCREENING MAMMOGRAM WITH CA CLINICAL: Routine screening. Comparison is made to exams d ated: 03/07/2015 mammogram and 02/11/2013 mammogram - [facility]. Current study contains 7 films. There are [...] 08:25:04 Imaging Techn ologist: Kirstie Mejias RT(R)(M), [facility] letter se nt: Compared to Prior B9 Mammogram BI-RADS: 2 Benign Dictated By: MICHELLE HOWE DO 4 Transcr ibed By: GHULAM on 05/20/18824 COPY TO: EDITH GRIMALDO MD CHEST 2 [id number] 12:21:00 [place] [address] Patient Name: LAURA KNIGHT MR #: [id number] : 1950 Age/Sex: 67/F Req #: [id number] Adm Physician: Ordered by: EDITH GRIMALDO MD Report #: [id number] Location: MAMMO Room/Bed: Procedure: 2115-4158 DX/C HEST 2 VIEWS Exam Date: Exam [...] PM Dictated By: YADY ABERNATHY MD, MD [facility] Signed By: YADY ABERNATHY MD, MD on 05/01/18 1222 Transcribed By: CEHRRY on 05/01/18 1222 COPY TO: EDITH GRIMALDO MD US RENAL RETROPERITONEAL COMP [place] [address] Patient Name: LAURA KNIGHT MR #: [id number] : 1950 Age/Sex: 66/F Req #: [id number] Adm Physician: Ordered by: EMMA JOAQUIN MD Report #: [id number] Location: Room/Bed: Procedure: 3309-4611 US/US RENAL RETROPERITONEAL CO MP Exam Date: [...] at 12:45 Dictated By: HANNY CM MD 124 Transcribed By: CASSIE on 09/08/17 1245 COPY TO: EMMA JOAQUIN MD US PELVIC (NON OB) BARR OR F/U [place] [address] Patient Name: LAURA KNIGHT MR #: [id number] : 1950 Age/Sex: 66/F Req #: [id number] Adm Physician: Ordered by: EMMA JOAQUIN MD Report #: [id number] Location: Room/Bed: Procedure: US/US PELVIC (NON OB) [...]
[2019-08-23] MEDS: NYSTATIN 100,000 UNITS/GM CRM 30GM TUBE TOP SCH (17:00)
[2019-08-23 18:20] LABS: CLARITY,URINE SL CLOUDY (CLEAR); COLOR,URINE YELLOW (YELLOW)
[2019-08-23 18:22] LABS: KETONES,URINE NEGATIVE (NEGATIVE); LEUKOCYTE ESTERASE ,URINE NEGATIVE (NEGATIVE); NITRITE,URINE NEGATIVE (NEGATIVE); PROTEIN,URINE DIPSTICK NEGATIVE (NEGATIVE); URINE UROBILINOGEN 2 mg/dL (0.2 - 1)
[2019-08-23 18:23] LABS: BILIRUBIN,URINE SMALL (NEGATIVE)
[2019-08-23 18:28] LABS: EPITHELIAL CELLS,URINE RARE /LPF; RBC,URINE 0-5 /HPF (0-5)
--- NOTE | 2019-08-23 19:30 | NUR ---
BEDSIDE SHIFT REPORT CALLED FROM ER. pT IS ALERT AND ORIENTED X3. RESPIRATIONS ARE EVEN AND UNLABORED.LEFT ARM CLUTCHED AT SIDE. PT HAS HX OF SHATTERED SHOULDER IN NOV WHEN FELL AT HOME. PT REPORTS ALSO HURT HER KNEE CAPS IN FALL. SKIN IN GROIN, PERINEAL AREA AND FOME MID BACK DOWN TO BUTTUCKS ESCORIATED. WOUND CARE CONSUTL GIVEN.PT IS INCONTINENT OF BLADDER. PERICARE GIVEN AND PURWICK IN PLACE. BILATERAL LOWER EXTREMITIES.PT LIVES ALONE. PT HAS CARE GIVERS FROM 9A TO 12 ON M,W,F. PT COMES TWICE A WEEK FOR PT. PT STATED SHE WANTS REHAB. PT UNABLE TO WALK AND GET OUT OF BED.ORIENTED TO ROOM. CALL LIGHT WITHIN REACH. BED IN LOW POSITION. PT REPORTS NO VISITORS. PT YELLS WHEN TURN HER FROMBACK TO SIDE.
[2019-08-23] MEDS: FLUCONAZOLE 100 MG TAB PO SCH (19:50)
[2019-08-23 20:00] VITALS: BP 118/78
[2019-08-23 21:00] VITALS: BP 118/78
--- NOTE | 2019-08-23 23:17 | History and Physical ---
CHIEF COMPLAINT: Pain to the back, debility, unable to move, ulcers to the back. HISTORY OF PRESENT ILLNESS: A 68-year-old morbidly obese female patient with chronic pain syndrome, lives at home with the help of provider and home health. The patient was brought to the hospital since she was lying in feces and urine. The patient was evaluated in the ER. She had extensive candidal rash to the back, abdominal fold. She refused to go home and she was fighting with the ER physician about her right. On exam, she has extensive candidal rash with exfoliated skin adherent to the back and she thinks it is feces. Since she was told by the home health that it was feces sticking to her back and she can go home because she has feces attached to the back. PAST MEDICAL HISTORY: Morbid obesity, chronic back pain, hypothyroidism. She denies diabetes. However, she is on glipizide. MEDICATIONS: Atenolol 50 mg daily, Synthroid 112 mcg daily. She denies any other medications. However, her medication list includes hydrocodone 5/325, gabapentin 100 mg t.i.d., doxepin 50 mg daily, clonazepam 1 mg two tablets at night, Celexa 40 mg daily, Aciphex 20 mg t.i.d., simvastatin 40 mg daily, sitagliptin, metformin, Janumet daily, tramadol 50 mg daily p.r.n., zafirlukast 10 mg daily. SOCIAL HISTORY: Denies smoking, alcohol. PAST SURGICAL HISTORY: None. ALLERGIES: TO CODEINE. PHYSICAL EXAMINATION: GENERAL: Weight 191 pounds. HEENT: Normal. NECK: No JVD. LUNGS: Bilateral air entry normal. ABDOMEN: Protuberant. Bowel sounds normal. LOWER EXTREMITIES: No edema. SKIN: The patient has candidal rash to the back, to the abdominal fold and groin. She is unable to turn, need full assistance. She cannot move her left knee, since she fell in February and she is not walking since then. She had a knee injury. She has contracted left knee. Right leg, she has a slight movement. LABORATORY DATA: CBC; white blood count 8.99, hemoglobin 14. Sodium 139, potassium 3.8, BUN 5 and creatinine 0.63. ASSESSMENT: Candidal intertrigo with a dermatitis involving the back, groin, abdominal fold, severe deconditioning, morbid obesity, and incontinence. PLAN: The patient probably needs physical therapy, rehabilitation, and eventual placement to a alf. She adamantly declined due to her right. Difficult patient to be helped. She was started on Diflucan 100 mg daily and shower, wash the exfoliated skin, Nystatin cream. Rolly Harry MD TG/MODL /[id number]
[2019-08-24] VITALS (8 sets, daily range): BP systolic 117–133; BP diastolic 62–85
[2019-08-24] MEDS: SODIUM CHLORIDE 0.9% 1000ML 1,000 ML IV SCH ×3 (00:30→21:00)
[2019-08-24] MEDS: LEVOTHYROXINE SODIUM 112 MCG TAB PO SCH (05:29)
--- NOTE | 2019-08-24 06:00 | NUR ---
ENDORSED TO DAY NURSE NO PAIN MED NOT ORDERED. NYSTATIN CREAM NOT COME FROM [facility].
--- NOTE | 2019-08-24 07:20 | NUR ---
PATIENT REPOSITIONED IN BED BY 2 STAFFS. DTI NOTED TO LEFT HEEL, HEEL PROTECTOR APPLIED; EXCORIATION TO PERINEAL AREA, EXCORIATION AND SKIN TEARS TO BACK AND BUTTOCKS. BED IN LOWER POSITION, CALL LIGHT AT REACH.
--- NOTE | 2019-08-24 09:36 | NUR ---
WOUND CARE NURSE IN TO ASSESS PATIENT, SHE REFUSE AFTER 2 ATTEMPTS. ENCOURAGED BY THE NURSE, BUT STILL REFUSE. IN BED WITH CALL LIGHT AT REACH.
--- NOTE | 2019-08-24 12:09 | NUR ---
PATIENT SEEN PER WOUND CARE CONSULT FOR SKIN ASSESSMENT R/T SKINFOLDS AND BACK WOUNDS PATIENT REFUSED TO BE SEEN STATES BOTH UNCOMFORTABLE TO BE SEEN BY MALE WITH OR WITHOUT BEING ACCOMPANIED BY FEMALE . UNDERSTANDING IS EXPRESSED TO PATIENT AND STATED THAT IF SHE CHANGED HER MIND I WOULD BE HAPPY TO REVISIT. PATIENT ASSIGNED NURSE IS COMMUNICATED WITH AND ASKED TO RECONSULT WOUND CARE IF SHE SHOULD CHANGE HER MIND Addendum: 08/24/19 at 1213 by Andrey Moura RN Amended: Links added.
[2019-08-24] MEDS: NYSTATIN 100,000 UNITS/GM CRM 30GM TUBE TOP SCH ×2 (13:01→17:36)
--- NOTE | 2019-08-24 15:47 | NUR ---
PATIENT C/O PAIN, MD NOTIFIED, NEW ORDER RECEIVED.
[2019-08-24] MEDS: NAPROXEN 250 MG TAB PO SCH (17:00)
[2019-08-24] MEDS: FLUCONAZOLE 100 MG TAB PO SCH (18:00)
--- NOTE | 2019-08-24 18:27 | NUR ---
Nutrition Screen Note RD Recommendation for Physician: - Recommend adding 1800 ADA to current diet Plan of Care: RD following, monitoring for tolerance and adequacy Nutrition reason for involvement: Nutrition Risk Trigger Primary Diagnose(s): back pain, debility PMH: morbid obesity, hypothyroidism, DM Ht: 64 in Wt: 191 lb BMI: 32.8 kg/m2 IBW: [address] Assessment: (08/23) 68 YOF admitted for back pain, seen today per MST screen. Pt reports good appetite and intake at home, states "but I don't eat no three course meal, I eat starches." Pt denies wt loss, can not recall UBW. Pt denies N/V/C/D. Pt with no questions or concerns at time of visit. Chart reviewed. Labs and meds reviewed. Will continue to monitor. Current Diet: Cardiac Malnutrition Evaluation (08/24/19) The patient does not meet criteria for a specified degree of malnutrition at this time. Will re-evaluate at follow-up as appropriate. Diet Education Needs Assessment: Diet education not indicated at this time. Diet tolerance: tolerating Nutrition Care Level: low Signed: Magda Rosenberg RD, LD, [facility]
--- NOTE | 2019-08-24 19:19 | Diagnostic Imaging Report ---
Exam: Left Knee Series. History: Acute on chronic left knee pain Comparison: None. Findings: 3 views of the left knee. There is decreased bone mineralization, as well as soft tissue attenuation from patient's body habitus which limit evaluation of the bony structures. No definite acute, displaced fracture or dislocation. Marked tricompartmental degenerative joint disease of the left knee, with joint space narrowing, osteophytosis and mild medial subluxation. No abnormal calcification or mass. No significant suprapatellar effusion. Impression: 1. Limited exam, as described above. No definite acute, displaced fracture or dislocation. 2. Marked tricompartmental degenerative joint disease of the left knee. Signed by: Dr. Aleksey Paz M.D. on 08/24/2019 7:16 PM
--- NOTE | 2019-08-24 19:22 | NUR ---
Patient received lying in bed. AAO x 3. Patient had no complaints of pain. Respirations even and non-labored. IVF infusing at 125 cc. Safety measures in place. Patient instructed to call for assistance when needed. Call light within reach.
--- NOTE | 2019-08-24 19:51 | Consultation ---
DATE OF CONSULTATION: 08/24/2019 REASON FOR CONSULTATION: 1. Debilitation. 2. Immobility. 3. Bilateral leg weakness and left knee severe arthritis. HISTORY: Mainly from medical records on the chart, the patient is a 68-year-old morbidly obese female, in chronic pain. She was at home, has a home health, but she pretty much lives alone she was found lying in feces and urine. The patient has a candidal rash to her back and abdominal folds. She has been quite weak and debilitated. She is not very forthcoming with history. I am being asked to evaluate for rehab needs. PAST MEDICAL HISTORY: Includes morbid obesity, chronic back pain, hypothyroidism, and diabetes. 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 She tells me she is really not moving or mobilizing very much. HABITS: Nonsmoker, nondrinker. PAST SURGICAL HISTORY: Denied. ALLERGIES: CODEINE. LABS: White cell count 8.9, hemoglobin 14, hematocrit 42.2, platelets 299. Sodium is 139, potassium 3.3, BUN of 5, creatinine 0.26. IMAGING: Abdominal pelvic CT report show status post cholecystectomy, hysterectomy, and lumbosacral spinal fusion. Otherwise unremarkable. PHYSICAL EXAMINATION: GENERAL: The patient is lying in bed. She is not too happy at all. She says [facility] She said the last time she walked was February 2019. Since then, she was not ambulated. She is not really able to elaborate how once she gets around at home, but based on her history, it appears that she is not getting around much. EYES: Gaze conjugate. ORAL: Tongue is midline. NECK: Supple. HEART: Regular. LUNGS: Diminished breath sounds. ABDOMEN: Obese. EXTREMITIES: She has Marques wrap to the left knee. She is not moving very much. She says it has been , but she can feel the pain that is [id number] left leg. The right leg, little bit more. IMPRESSION: 1. Debilitation, she is obviously unable to get around much. . 2. Left knee pain, etiology uncertain. She says it is [id number] and that is unchanged really. 3. Chronic pain syndrome. 4. Obesity. 5. Hypertension. PLAN: The patient is adamant she will not go to any kind of rehab rehab. We will be working on discharge planning to [facility], but in the meantime, she is somewhat . Therapies have been initiated. We will go ahead and x-ray her left knee. Thank you once again for allowing me to participate in the care of this pleasant, but unfortunate patient. Dao Campos DO RPL/MODL /[id number]
[2019-08-24] MEDS: QUETIAPINE FUMARATE 25 MG TAB PO SCH (21:42)
[2019-08-24] MEDS: DOXEPIN HCL 10 MG CAP PO SCH (21:42)
[2019-08-24] MEDS: SIMVASTATIN 40 MG TAB PO SCH (21:43)
[2019-08-25] VITALS (7 sets, daily range): BP systolic 103–168; BP diastolic 57–86
[2019-08-25] MEDS: SODIUM CHLORIDE 0.9% 1000ML 1,000 ML IV SCH ×3 (01:10→17:07)
--- NOTE | 2019-08-25 01:17 | NUR ---
Patient complained of generalized pain (10/14). Dr. Hampton paged. Awaiting call back.
[2019-08-25] MEDS: LEVOTHYROXINE SODIUM 112 MCG TAB PO SCH (05:29)
--- NOTE | 2019-08-25 07:00 | NUR ---
Patient resting comfortably. No acute distress noted. Walking rounds done. BSSR given to oncoming nurse.
[2019-08-25] MEDS: PANTOPRAZOLE SOD 40 MG TABEC PO SCH (07:30)
[2019-08-25] MEDS: NYSTATIN 100,000 UNITS/GM CRM 30GM TUBE TOP SCH ×2 (09:00→17:16)
[2019-08-25] MEDS: NAPROXEN 250 MG TAB PO SCH ×2 (09:00→17:15)
--- NOTE | 2019-08-25 09:30 | NUR ---
The pt. decline med pass at this time stating I don't eat breakfast and I don't want to take my meds right now. can you come back later.
--- NOTE | 2019-08-25 10:22 | NUR ---
Pt. expressed no spiritual or emotional concerns at this time. Trimmer Loader provided hospitality and information on how to reach help desk operator, if needed. No need to follow at this time. JOSLYN CHARLES Trimmer Loader Spiritual Care Department O: [phone]
[2019-08-25] MEDS: ATENOLOL 50 MG TAB PO SCH (10:42)
--- NOTE | 2019-08-25 10:47 | NUR ---
Spoke with pt at bedside this morning regarding choice for SNF. Pt states she wants [facility] in [place]. CM explained to pt that that facility is an inpatient rehab hospital and discussed criteria with pt. She said that she would not be able to do that much therapy at this time. Pt states she will look at SNF list and make a decision. CM will follow up after lunch.
--- NOTE | 2019-08-25 13:26 | NUR ---
Spoke with pt at bedside to follow up on SNF choice. Pt chose [facility]. Choice letter signed and placed in chart. Copy to pt. Referral faxed to [facility] at [phone] JASPREET Cano with [facility] was notified of referral.
[2019-08-25] MEDS: FLUCONAZOLE 100 MG TAB PO SCH (17:16)
[2019-08-25] MEDS ORDERED: POTASSIUM CHLORIDE 20 MEQ TAB CR PO ONE (18:45)
--- NOTE | 2019-08-25 19:34 | NUR ---
RECEIVED PT IN BED AOX3 .RESPIRATIONS ARE EVEN AND UNLABORED .SKIN WARM AND DRY TO TOUCH .NS AT 125 C/HR .CALL LIGHT WITH IN REACH .CONTINUE TO MONITOR
[2019-08-25] MEDS: DOXEPIN HCL 10 MG CAP PO SCH (21:00)
[2019-08-25] MEDS: SIMVASTATIN 40 MG TAB PO SCH (21:00)
[2019-08-25] MEDS: QUETIAPINE FUMARATE 25 MG TAB PO SCH (21:00)
--- NOTE | 2019-08-25 21:21 | Progress Note ---
DATE: SUBJECTIVE: Mrs. Eduardo is seen on rounds, which she is doing relatively well. She is feeling okay, more alert. She is still adamant that she will not go to [facility]. [facility]. OBJECTIVE: VITAL SIGNS: Temperature 98.2, respirations 18, heart rate 67, blood pressure 130/67. HEART: Regular. LUNGS: Diminished breath sounds. ABDOMEN: Nondistended, nontender. NECK: No JVD. ASSESSMENT AND PLAN: Clinically, she is doing making progression toward goals. Continue multidisciplinary rehab program to optimize functional level. She is a very difficult case. Continue supportive care. Dao Campos DO RPL/MODL /[id number]
[2019-08-26] VITALS: BP 152/66
[2019-08-26] MEDS: SODIUM CHLORIDE 0.9% 1000ML 1,000 ML IV SCH ×2 (00:30→08:30)
[2019-08-26 04:00] VITALS: BP 151/69
[2019-08-26] MEDS: LEVOTHYROXINE SODIUM 112 MCG TAB PO SCH (06:00)
--- NOTE | 2019-08-26 06:03 | NUR ---
PT REFUSED THE FLUID PT RESTED DURING THE NIGHT .DENIES PAIN.CALL LIGHT WITH IN REACH .CONTINUE TO MON
--- NOTE | 2019-08-26 06:52 | NUR ---
,BEDSIDE REPORT GIVEN TO THE ONCOMING NURSE
[2019-08-26 07:02] LABS: ANION GAP 13.1 mmol/L (8-16); BLOOD UREA NITROGEN < 5 mg/dL (7-26); CALCIUM 8.7 mg/dL (8.4-10.2); CARBON DIOXIDE 22 mmol/L (22-29); CHLORIDE 111 mmol/L (98-107); CREATININE, SERUM 0.53 mg/dL (0.57-1.11); EST GLOMERULAR FILTRATION RATE > 60 ML/MIN (60-); GLUCOSE 84 mg/dL (74-118); POTASSIUM 3.1 mmol/L (3.5-5.1); SODIUM 143 mmol/L (136-145)
[2019-08-26 07:06] LABS: BUN/CREATININE RATIO 9 (6-25)
[2019-08-26 07:45] VITALS: BP 141/69
[2019-08-26] MEDS: PANTOPRAZOLE SOD 40 MG TABEC PO SCH (08:30)
[2019-08-26] MEDS: NAPROXEN 250 MG TAB PO SCH (08:31)
[2019-08-26] MEDS: ATENOLOL 50 MG TAB PO SCH (08:32)
[2019-08-26] MEDS: NYSTATIN 100,000 UNITS/GM CRM 30GM TUBE TOP SCH (08:33)
[2019-08-26 08:34] VITALS: BP 141/69
[2019-08-26] MEDS ORDERED: OXYBUTYNIN CHLORIDE 5 MG TAB PO SCH (09:00)
--- NOTE | 2019-08-26 11:00 | NUR ---
call to Dr cathi Cano for orders concerning d/c Addendum: 08/26/19 at 1849 by Ernestina Chacon LVN Call to DR Hampton concerning d/c orders
[2019-08-26 11:35] VITALS: BP 137/73
--- NOTE | 2019-08-26 12:22 | NUR ---
RESIDENTIAL FACILITY DISCHARGE INFORMATION PATIENT HAS BEEN ACCEPTED TO: [facility] [id number] [place] [address] ACCEPTING CLINICAL LAB SPECIALIST: Ronny Flannery ACCEPTING MD: Dr. Castillo ROOM: 104 NURSE CALL REPORT TO: [phone] IMM SIGNED AND OBTAINED (if applicable): n/a THE FOLLOWING DOCUMENTS MUST ACCOMPANY PATIENT FOR TRANSFER: copy of chart. transfer MAR COPIED CHART: jorgito [place] RTF: completed and placed with pt's packet at nurses station. [id number] DNR: n/a OBEY Do was informed of bed. COVID form was faxed to [facility].
--- NOTE | 2019-08-26 13:39 | NUR ---
report given to Sue at [facility].
--- NOTE | 2019-08-26 14:50 | NUR ---
PASSR form faxed to facility, copy in front of chart and in pt's packet for transfer.
--- NOTE | 2019-08-26 14:53 | NUR ---
call to Dr. Hampton for pt being transferred. to [facility].
--- NOTE | 2019-08-26 15:30 | NUR ---
pt discharged to [facility] via ambulance service.
--- NOTE | 2019-08-26 15:30 | NUR ---
pt discharged via ambulance service, to [facility].
--- NOTE | 2019-08-27 11:57 | Discharge Summary ---
HOSPITAL COURSE: A 68-year-old morbidly obese female. The patient lives at home by herself with her home health care. The patient was unable to get up, sit, or ambulate. She was laying in the urine with a maceration to the whole of the back with an exfoliated skin stuck on the skin. Never taken shower for months, was brought to the hospital with an exfoliated skin stuck to the skin. The patient thought it was all pieces and wants to be washed. She was admitted and treated with Diflucan cream. Received physical therapy. The patient was having dysuria, claiming to her UTI. However, urinalysis is normal. She was placed on oxybutynin. She was discharged to the custodial care for rehab. DISCHARGE DIAGNOSES: 1. Physical deconditioning. 2. Candidal dermatitis. 3. Morbid obesity. 4. Incontinence. 5. Hyperthyroidism. 6. Diabetes mellitus. 7. Anxiety. 8. Insomnia. 9. Depression. MD IVIS Bernard/MODL /[id number]
== END 2019-08-26 15:34 ==
LOC: ER 12:33 → ERHOLD 16:17 → MED/SURG3 19:59
PROVIDERS: ADMIT Internal Medicine; ATTEND Internal Medicine
DX: L30.4 Erythema intertrigo (principal); R53.81 Other malaise; E66.01 Morbid (severe) obesity due to excess calories; R32 Unspecified urinary incontinence; G89.4 Chronic pain syndrome; B37.2 Candidiasis of skin and nail; E03.9 Hypothyroidism, unspecified; E11.9 Type 2 diabetes mellitus without complications; Z79.84 Long term (current) use of oral hypoglycemic drugs; Z90.49 Acquired absence of other specified parts of digestive tract; M25.562 Pain in left knee; I10 Essential (primary) hypertension; F41.9 Anxiety disorder, unspecified; G47.00 Insomnia, unspecified; F32.9 Major depressive disorder, single episode, unspecified; Z68.32 Body mass index [BMI] 32.0-32.9, adult
CPT/HCPCS: 36415 ×2; 73562; 74177; 80048; 80053; 81001; 85025; 87635; 97110 ×3; 97139 ×5; 97162; 97530 ×2; 99251; 99284; G0378 ×4; J7030 ×3; Q9967; S0164 ×2